=== PATIENT | male | born 1960 | race Caucasian/White ===

== ENCOUNTER 2017-04-10 11:04 | Observation (INO) ==
--- NOTE | 2017-04-10 11:29 | Emergency Department Note ---
Disposition Clinical Impression: Weakness Falls Qualifiers: Encounter type: initial encounter Qualified Code(s): W19.XXXA - Unspecified fall, initial encounter Diarrhea Qualifiers: Diarrhea type: unspecified type Qualified Code(s): R19.7 - Diarrhea, unspecified Disposition: Admitted As Inpatient Condition: Fair Referrals: Anjel Mac DO [Primary Care Provider] - Forms: ED Satisfaction Letter Time of Disposition: 12:15 Weakness HPI - General Chief complaint: ED Fall Stated complaint: Falls N/V From [facility]idency [facility] Time Seen by Provider: 04/10/17 11:15 Source: patient Limitations: no limitations Nursing Notes Reviewed: Yes Vital Signs Reviewed: Yes - History of Present Illness HPI Narrative: Patient thinks he had a stroke approximately 2 weeks ago. He fell and then woke up with increasing leg weakness and slurred speech. He has a remote history of a stroke in August 2016 with residual baseline left-sided hemianopsia and left-sided hearing deficit. He states he has fallen from his chair twice since the initial fall. He injured his right knee and right great toe. Today he was sent from the residency clinic due to decreased ability to function at home. The patient states he has had diarrhea for 2-1/2 weeks. He complains of generalized mild abdominal pain and nausea. He is unable to cook, clean, bathe or perform other ADLs Pt Subjective Complaint: generalized weakness/fatigue, difficulty ambulating Onset (ago): week(s) Duration: constant Location: LLE, RLE Migration: none Pain Scale: 10 Improves with: movement, exertion Worsens with: none Associated symptoms: Reports: nausea/vomiting, other (abd pain) - Related Data Home Medications Medication Instructions Recorded Confirmed Alfuzosin HCl [Uroxatral] 10 mg PO DAILY 11/04/15 11/04/15 Amitriptyline [Elavil] 50 mg PO HS 11/04/15 11/04/15 Ascorbate Calcium [Vitamin C] 500 mg PO DAILY 11/04/15 11/04/15 Aspirin/Calcium Carbonate/Mag 325 mg PO DAILY 11/04/15 11/04/15 [Aspirin Buffered 325 mg Tab] Calcium Carbonate/Vitamin D3 1 each PO DAILY 11/04/15 11/04/15 [Calcium 500-Vit D3 400 Tablet] Docusate [Colace] 200 mg PO DAILY 11/04/15 11/04/15 Ferrous Sulfate 325 mg PO DAILY 11/04/15 11/04/15 Folic Acid 1 mg PO DAILY 11/04/15 11/04/15 Gabapentin [Neurontin] 600 mg PO TID 11/04/15 11/04/15 Magnesium Oxide [Magnesium] 400 mg PO DAILY 11/04/15 11/04/15 Melatonin 9 mg PO HS 11/04/15 11/04/15 Naproxen [Naprosyn] 500 mg PO BID 11/04/15 11/04/15 Nicotine Patch [Nicoderm] 14 mg TD DAILY PRN 11/04/15 11/04/15 Nicotine Polacrilex [Nicorette] 4 mg BC Q6H 11/04/15 11/04/15 Omeprazole [PriLOSEC] 40 mg PO DAILY 11/04/15 11/04/15 Ondansetron HCl [Zofran] 4 mg PO BID PRN 11/04/15 11/04/15 OxyCODONE/APAP 10/325 [Percocet 1 each PO Q6HR PRN 11/04/15 11/04/15 10/325 MG] Thiamine (B-1) [Vitamin B-1] 100 mg PO DAILY 11/04/15 11/04/15 Previous Rx's Medication Instructions Recorded HYDROcodone/Acet 5/325 mg [[place] 2 tab PO Q4H PRN #20 tablet 11/04/15 5-325 mg] Ondansetron ODT [Zofran ODT] 4 mg SL Q6HR #10 tab.rapdis 03/31/17 Allergies Allergy/AdvReac Type Severity Reaction Status Date / Time No Known Allergies Allergy Verified 04/10/17 11:07 All systems ED: reviewed and negative except as stated. Constitutional: Reports: weakness Eyes: Reports: as per HPI ENT ED: Reports: as per HPI Cardiovascular: Reports: as per HPI Respiratory: Reports: as per HPI Gastrointestinal: Reports: abdominal pain, nausea, diarrhea Genitourinary: Reports: as per HPI Musculoskeletal: Reports: as per HPI Integumentary: Reports: as per HPI Neurological: Reports: weakness, other (Fall, dysarthria) Psychiatric: Reports: as per HPI Endocrine: Reports: as per HPI Hematological/Lymphatic: Reports: as per HPI Allergic/Immunologic: Reports: as per HPI Past Medical History - Past Medical History Source: patient Medical history: Reports: asthma, GERD, pulmonary embolus, RA, other Surgical history: Reports: other Psychiatric history: Reports: anxiety, depression - Social History Smoking Status: Current every day smoker Smokeless Tobacco Status: No Alcohol use: Reports: occasionally Drug use: Reports: marijuana Physical Exam - General Limitations: no limitations General appearance: alert - Head Head exam: atraumatic - Eye Eye exam: Present: normal appearance, PERRL - ENT ENT exam: normal exam - Neck Neck exam: Present: normal inspection, full ROM - Chest Chest inspection: Present: normal inspection, symmetric chest wall rise - Respiratory Respiratory exam: Present: other (Mild diffuse expiratory rhonchi) - Cardiovascular Cardiovascular exam: Present: regular rate, normal rhythm, normal heart sounds - Abdominal Exam Abdominal exam: Present: soft, tenderness (Mild diffusely without guarding or rebound), normal bowel sounds - Rectal Exam Rectal exam: Present: deferred - Extremities Exam Extremities exam: Present: normal inspection - Neurological Exam Neurological exam: Present: alert, oriented X3, CN II-XII intact, other (No facial asymmetry. Tongue midline. Speech mildly dysarthric. No pronator drift. Equal and full strength in the upper extremities. Patient only able to hold his legs off the bed versus gravity for 1-2 seconds bilaterally) - Psychiatric Psychiatric exam: Present: normal affect, normal mood - Skin Skin exam: Present: warm, dry, intact Course Course Narrative: Patient presents with progressive debility after a fall 2 weeks ago. He also complains of diarrhea and nausea. He was sent from the residency clinic with concern for his inability to care for himself at home. Workup including CT head and labs initiated. - Reevaluation(s) Reevaluation #1: Tests results discussed with patient. donor services technician unable to place to an extended care facility due to insurance reasons. I will request admission to the hospitalist service - Consultations Consultation #1: donor services technician consulted Vital Signs Temperature 98.2 F 04/10/17 11:07 Pulse Rate 95 04/10/17 11:07 Respiratory Rate 20 04/10/17 11:07 Blood Pressure 152/87 04/10/17 11:07 O2 Sat by Pulse Oximetry 100 04/10/17 11:07 Temperature 98.2 F 04/10/17 11:07 Pulse Rate 93 04/10/17 12:00 Respiratory Rate 18 04/10/17 12:00 Blood Pressure 149/93 04/10/17 12:00 O2 Sat by Pulse Oximetry 99 04/10/17 12:00 Oxygen Delivery Oxygen Delivery Room Air Weakness - Medical Records Medical records reviewed: Yes I reviewed the patient's medical records. C. difficile toxin negative on 03/31/2017 per my review of records - Lab Data Lab results reviewed: Yes I reviewed the patient's lab results. Result diagrams: 04/10/17 11:39 04/10/17 11:39 Lab Results 04/10/17 04/10/17 04/10/17 Range/Units 11:28 11:39 11:39 WBC 6.1 (4.3-11.1) K/mcL RBC 4.04 L (4.19-5.50) M/mcL Hgb 14.5 (12.9-16.9) g/dL Hct 41.3 (37.5-50.1) % MCV 102.2 H (83.0-100.0) fL MCH 35.9 H (28.0-33.3) pg MCHC 35.1 (31.6-35.5) g/dL RDW 16.3 H (11.5-14.5) % Plt Count 206 (140-400) K/mcL MPV 10.5 (9.4-12.4) fL Immature Gran % 0.5 (0-4) % Seg Neutrophils % 69.9 % Lymphocytes % 16.6 % Monocytes % 11.5 % Eosinophils % 0.7 % Basophils % 0.8 % Neutrophils # 4.3 (1.6-8.9) K/mcL Lymphocytes # 1.0 (0.6-4.6) K/mcL Monocytes # 0.7 (0.0-1.3) K/mcL Eosinophils # 0.0 (0.0-0.6) K/mcL Basophils # 0.1 (0.0-0.2) K/mcL Sodium 133 L (136-145) mEq/L Potassium 4.3 (3.5-4.5) mEq/L Chloride 95 L (98-109) mEq/L Carbon Dioxide 25 (19-29) mEq/L BUN 13 (8-26) mg/dL Creatinine 0.83 (0.72-1.25) mg/dL Est GFR ( Amer) > 60 (> 60) Est GFR (Non-Af Amer) > 60 (> 60) BUN/Creatinine Ratio 16 (6-26) Glucose 89 (70-99) mg/dL POC Glucose 82 (58-89) Calculated Osmolality 276 L (280-300) Calcium 9.6 (8.6-10.8) mg/dL Magnesium 1.3 L (1.6-2.6) mg/dL Total Bilirubin 1.0 (0.2-1.2) mg/dL AST 97 H (5-34) Units/L ALT 100 H (0-55) Units/L Alkaline Phosphatase 123 (38-126) Units/L Troponin I (0-0.03) ng/mL Serum Total Protein 7.3 (6.0-8.3) g/dL Albumin 4.0 (3.5-5.0) g/dL Globulin 3.3 (2.4-3.5) g/dL Albumin/Globulin Ratio 1.2 (1.1-2.2) Lipase 38 (8-78) Units/L 04/10/17 Range/Units 11:39 WBC (4.3-11.1) K/mcL RBC (4.19-5.50) M/mcL Hgb (12.9-16.9) g/dL Hct (37.5-50.1) % MCV (83.0-100.0) fL MCH (28.0-33.3) pg MCHC (31.6-35.5) g/dL RDW (11.5-14.5) % Plt Count (140-400) K/mcL MPV (9.4-12.4) fL Immature Gran % (0-4) % Seg Neutrophils % % Lymphocytes % % Monocytes % % Eosinophils % % Basophils % % Neutrophils # (1.6-8.9) K/mcL Lymphocytes # (0.6-4.6) K/mcL Monocytes # (0.0-1.3) K/mcL Eosinophils # (0.0-0.6) K/mcL Basophils # (0.0-0.2) K/mcL Sodium (136-145) mEq/L Potassium (3.5-4.5) mEq/L Chloride (98-109) mEq/L Carbon Dioxide (19-29) mEq/L BUN (8-26) mg/dL Creatinine (0.72-1.25) mg/dL Est GFR ( Amer) (> 60) Est GFR (Non-Af Amer) (> 60) BUN/Creatinine Ratio (6-26) Glucose (70-99) mg/dL POC Glucose (58-89) Calculated Osmolality (280-300) Calcium (8.6-10.8) mg/dL Magnesium (1.6-2.6) mg/dL Total Bilirubin (0.2-1.2) mg/dL AST (5-34) Units/L ALT (0-55) Units/L Alkaline Phosphatase (38-126) Units/L Troponin I 0.01 (0-0.03) ng/mL Serum Total Protein (6.0-8.3) g/dL Albumin (3.5-5.0) g/dL Globulin (2.4-3.5) g/dL Albumin/Globulin Ratio (1.1-2.2) Lipase (8-78) Units/L - Radiology Data Radiology results reviewed: Yes I reviewed the patient's radiology results. - EKG Data EKG attestation: Yes I reviewed and interpreted this EKG. EKG results narrative: Normal sinus rhythm with supraventricular complexes rate 99 WI 138 QRS 98 QT/ QTC 355/411. No acute ST segment elevation
[2017-04-10 11:49] LABS: Basophils # 0.1 K/mcL (0.0-0.2); Basophils % 0.8 %; Eosinophils % 0.7 %; Hematocrit 41.3 % (37.5-50.1); Hemoglobin 14.5 g/dL (12.9-16.9); Immature Granulocytes % 0.5 % (0-4); Lymphocytes % 16.6 %; Mean Corpuscular HGB Conc 35.1 g/dL (31.6-35.5); Mean Corpuscular Hemoglobin 35.9 pg (28.0-33.3); Mean Corpuscular Volume 102.2 fL (83.0-100.0); Mean Platelet Volume 10.5 fL (9.4-12.4); Monocytes # 0.7 K/mcL (0.0-1.3); Monocytes % 11.5 %; Neutrophils # 4.3 K/mcL (1.6-8.9); Platelet Count 206 K/mcL (140-400); Red Blood Count 4.04 M/mcL (4.19-5.50); Red Cell Distribution Width 16.3 % (11.5-14.5); Segmented Neutrophils % 69.9 %
[2017-04-10 12:09] LABS: Alanine Aminotransferase 100 Units/L (0-55); Albumin/Globulin Ratio 1.2 (1.1-2.2); Alkaline Phosphatase 123 Units/L (38-126); Aspartate Amino Transferase 97 Units/L (5-34); BUN/Creatinine Ratio 16 (6-26); Blood Urea Nitrogen 13 mg/dL (8-26); Calcium 9.6 mg/dL (8.6-10.8); Carbon Dioxide 25 mEq/L (19-29); Chloride 95 mEq/L (98-109); Globulin 3.3 g/dL (2.4-3.5); Glucose 89 mg/dL (70-99); Lipase 38 Units/L (8-78); Magnesium 1.3 mg/dL (1.6-2.6); Osmolality,Calculated 276 (280-300); Potassium 4.3 mEq/L (3.5-4.5); Sodium 133 mEq/L (136-145); Total Protein 7.3 g/dL (6.0-8.3); eGFR For African Americans > 60 (> 60); eGFR For Non-African Americans > 60 (> 60)
[2017-04-10] MEDS ORDERED: *HR* Morphine 2 MG/ML SYRINGE IVP ONE (12:12)
[2017-04-10] MEDS ORDERED: Ondansetron 4 MG/2 ML VIAL IVP ONE (12:12)
[2017-04-10] MEDS ORDERED: Ondansetron ODT 4 MG TAB.RAPDIS SL PRN (13:03)
[2017-04-10] MEDS ORDERED: Naloxone 0.4 MG/ML INJ IVP PRN (13:03)
[2017-04-10] MEDS ORDERED: Acetaminophen 325 MG TABLET PO PRN (13:03)
[2017-04-10] MEDS ORDERED: Magnesium Sulfate 2 GM in D5% in Water 100 ML IVPB ONE (13:13)
--- NOTE | 2017-04-10 14:32 | Internal Med History&Physical ---
Date of Encounter: 04/11/17 Time of Encounter: 14:23 Assessment and Plan (1) Weakness Current visit: Yes Status: Acute Patient reports generalized weakness for the last 2-1/2 weeks, accompanied by nausea, vomiting, diarrhea. Weakness may be related to poor oral intake, and viral gastroenteritis. However patient does have a history of CVA in August with residual visual and hearing disturbance, along with risk factors of hypertension, hyperlipidemia, and smoking. CT of the head was negative for acute abnormality MRI of the brain and head was ordered Fall precautions Social work consult for discharge planning PT and OT ordered (2) Diarrhea Current visit: Yes Status: Acute Patient reports diarrhea for the last 2-1/2 weeks, along with poor appetite, nausea and vomiting. Fecal GI panel and white blood cells ordered IV fluids 0.9 normal saline at 100 mL per hour Regular diet as tolerated. Qualifiers: Diarrhea type: unspecified type Qualified Code(s): R19.7 - Diarrhea, unspecified (3) Nausea & vomiting Current visit: Yes Status: Acute Patient reports nausea and vomiting over the last 2-1/2 weeks. He has a poor appetite as well as diarrhea. Diffuse mild abdominal tenderness on exam. KUB x-ray ordered Zofran when necessary for nausea IV fluids 0.9 normal saline at 100 mL per hour Regular diet as tolerated Qualifiers: Vomiting type: bilious vomiting Qualified Code(s): R11.14 - Bilious vomiting (4) Hypomagnesemia Current visit: Yes Status: Acute Magnesium of 1.3. 2 g magnesium IV piggyback Recheck magnesium with morning labs (5) Elevated LFTs Current visit: Yes Status: Acute AST and ALT are mildly elevated. Patient reports occasional alcohol use with last use reportedly 3 weeks ago. Recheck LFTs with morning labs. (6) Smoker Current visit: Yes Status: Acute Discussed smoking cessation, patient not ready to quit at this time. Smoking cessation education ordered, nicotine patch ordered. (7) DVT prophylaxis Current visit: Yes Status: Acute Antiembolic stockings Lovenox 40 mg subcutaneous daily Internal Medicine - H&P: HPI Chief complaint: weakness, N/V/D Admitted From: Emergency Dept Plans for Post Hospital Care: Transfer [facility] [employer] Care History of present illness: Mr. Porter is a 57 year old male with COPD, hypertension, hyperlipidemia, history of CVA in August with residual left-sided visual changes and left- sided hearing loss, presents to emergency room today with complaints of 2-2-1/2 week history of generalized weakness, falls, nausea, vomiting, abdominal pain and diarrhea. Patient reports that about 2 and half weeks ago he suffered a fall, felt like maybe he had a stroke, as he was generalized weak. He has had trouble since then with diarrhea, nausea, vomiting, has not had much of an appetite, has been too weak to take care of himself including bathing, and fixing meals. He also endorses headache, occasional shortness of breath occasional chest pain, numbness and tingling in bilateral feet, subjective fever , chills, and congestion. He denies any coughing, or lightheadedness. Evaluation in the emergency department included a CT of the head which showed no acute intracranial abnormality. He was afebrile, his white blood cell count was normal at 6.1. Magnesium was low at 1.3. Sodium was mildly low at 133. Troponin was normal at 0.01. Chest x-ray showed no acute cardiopulmonary process. On exam, patient was alert and oriented, in no acute distress. Strength was equal bilaterally though reduced in bilateral upper and lower extremities. Clear bilaterally to auscultation, heart had regular rate and rhythm. Abdomen is diffusely mildly tender, he does have positive bowel sounds. Past Med Surg Social Fam HX - Past Medical History Medical history: asthma, COPD, CVA, GERD, hyperlipidemia, hypertension, pulmonary embolus, RA, other Psychiatric history: anxiety, depression - Past Surgical History Surgical History: hip replacement, orthopedic, other (foot x 3, back), other - Social History Smoking Status: Current every day smoker Packs per day: 1 Smokeless Tobacco Status: No Alcohol use: occasionally Drug use: marijuana - Family History Mother Living Status: Still Living Hx Family Cardiac Disorders: Yes Father Living Status: Age at : 76 Cause of : Cancer Hx Family Cardiac Disorders: Yes Hx Family Cancer: Yes Internal Medicine - H&P: Meds Ferrous Sulfate 325 mg PO DAILY 11/04/15 [History] Ondansetron ODT [Zofran ODT] 4 mg SL Q6HR #10 tab.rapdis 03/31/17 [Rx] Aspirin 81 mg PO DAILY 04/10/17 [History] Atorvastatin Calcium [Lipitor] 20 mg PO DAILY 04/10/17 [History] Esomeprazole Magnesium [Nexium] 20 mg PO DAILY 04/10/17 [History] Lisinopril [Zestril] 10 mg PO DAILY 04/10/17 [History] Allergies No Known Allergies Allergy (Verified 04/10/17 11:07) All Systems PM: A 10-system review of systems was performed and is negative for pertinent findings except as documented above in the HPI. - Constitutional Constitutional: chills, fever(s), falls, lethargy, weakness, weight loss, no night sweats - EENT Eyes: no change in vision (reports loss of partial left sided vision in August ), no discharge, no pain, no photophobia Ears: no ear discharge, no ear pain, no tinnitus Nose, mouth and throat: nasal congestion, no dysphagia, no nasal discharge, no neck pain, no sore throat - Cardiovascular Cardiovascular ROS IM: chest pain, dyspnea, no diaphoresis, no lightheadedness, no palpitations, no syncope - Respiratory Respiratory: dyspnea, no cough, no wheezing, no excessive phlegm production - Gastrointestinal Gastrointestinal: abdominal pain, diarrhea, nausea, vomiting, no hematemesis, no hematochezia, no melena - Musculoskeletal Musculoskeletal ROS IM: numbness (bilateral feet), tingling - Integumentary Integumentary IM: no rash, no unusual bruising - Neurological Neurological ROS: numbness (bilateral feet), tingling, no confusion, no convulsions, no focal weakness, no tremor(s) - Hematologic/Lymphatic Hematologic/Lymphatic: no easy bruising - Constitutional Vitals: Temp Pulse Resp BP Pulse Ox 97.9 F 85 16 157/86 96 04/10/17 13:54 04/10/17 13:54 04/10/17 13:54 04/10/17 13:54 04/10/17 13:54 General appearance: Present: A&O X 3, pleasant, no acute distress - Head Head exam: Present: atraumatic, normocephalic - Eye Eye exam: Present: PERRL, conjuntiva pink, sclera anicteric Pupils: Present: PERRL - Neck Neck exam general surgery: Present: supple, trachea midline. Absent: lymphadenopathy - Respiratory Respiratory exam: Present: CTAB. Absent: accessory muscle use, rales, rhonchi, wheezes - Cardiovascular Cardiovascular exam: Present: RRR, +S1, +S2. Absent: diastolic murmur, gallop, rubs, systolic murmur - GI/Abdominal GI/Abdominal exam: Present: normal bowel sounds, soft, tenderness, no peritoneal signs. Absent: distended - Extremities Exam Extremities exam: Present: warm, radial pulses palpable and symetrical. Absent : calf tenderness, cyanotic, pedal edema - Neurological Exam Neurological exam: Present: CN II-XII intact, oriented X3, no focal deficits. Absent: pronater drift, facial droop, speech deficit - Skin Skin exam: Present: dry, intact Internal Med - H&P Results - Labs CBC & Chem 7: 04/10/17 11:39 04/10/17 11:39 Labs: All Lab Results (24 Hours) 04/10/17 04/10/17 04/10/17 Range/Units 11:28 11:39 11:39 WBC 6.1 (4.3-11.1) K/mcL RBC 4.04 L (4.19-5.50) M/mcL Hgb 14.5 (12.9-16.9) g/dL Hct 41.3 (37.5-50.1) % MCV 102.2 H (83.0-100.0) fL MCH 35.9 H (28.0-33.3) pg MCHC 35.1 (31.6-35.5) g/dL RDW 16.3 H (11.5-14.5) % Plt Count 206 (140-400) K/mcL MPV 10.5 (9.4-12.4) fL Immature Gran % 0.5 (0-4) % Seg Neutrophils % 69.9 % Lymphocytes % 16.6 % Monocytes % 11.5 % Eosinophils % 0.7 % Basophils % 0.8 % Neutrophils # 4.3 (1.6-8.9) K/mcL Lymphocytes # 1.0 (0.6-4.6) K/mcL Monocytes # 0.7 (0.0-1.3) K/mcL Eosinophils # 0.0 (0.0-0.6) K/mcL Basophils # 0.1 (0.0-0.2) K/mcL Sodium 133 L (136-145) mEq/L Potassium 4.3 (3.5-4.5) mEq/L Chloride 95 L (98-109) mEq/L Carbon Dioxide 25 (19-29) mEq/L BUN 13 (8-26) mg/dL Creatinine 0.83 (0.72-1.25) mg/dL Est GFR ( Amer) > 60 (> 60) Est GFR (Non-Af Amer) > 60 (> 60) BUN/Creatinine Ratio 16 (6-26) Glucose 89 (70-99) mg/dL POC Glucose 82 (58-89) Calculated Osmolality 276 L (280-300) Calcium 9.6 (8.6-10.8) mg/dL Magnesium 1.3 L (1.6-2.6) mg/dL Total Bilirubin 1.0 (0.2-1.2) mg/dL AST 97 H (5-34) Units/L ALT 100 H (0-55) Units/L Alkaline Phosphatase 123 (38-126) Units/L Troponin I (0-0.03) ng/mL Serum Total Protein 7.3 (6.0-8.3) g/dL Albumin 4.0 (3.5-5.0) g/dL Globulin 3.3 (2.4-3.5) g/dL Albumin/Globulin Ratio 1.2 (1.1-2.2) Lipase 38 (8-78) Units/L 04/10/17 Range/Units 11:39 WBC (4.3-11.1) K/mcL RBC (4.19-5.50) M/mcL Hgb (12.9-16.9) g/dL Hct (37.5-50.1) % MCV (83.0-100.0) fL MCH (28.0-33.3) pg MCHC (31.6-35.5) g/dL RDW (11.5-14.5) % Plt Count (140-400) K/mcL MPV (9.4-12.4) fL Immature Gran % (0-4) % Seg Neutrophils % % Lymphocytes % % Monocytes % % Eosinophils % % Basophils % % Neutrophils # (1.6-8.9) K/mcL Lymphocytes # (0.6-4.6) K/mcL Monocytes # (0.0-1.3) K/mcL Eosinophils # (0.0-0.6) K/mcL Basophils # (0.0-0.2) K/mcL Sodium (136-145) mEq/L Potassium (3.5-4.5) mEq/L Chloride (98-109) mEq/L Carbon Dioxide (19-29) mEq/L BUN (8-26) mg/dL Creatinine (0.72-1.25) mg/dL Est GFR ( Amer) (> 60) Est GFR (Non-Af Amer) (> 60) BUN/Creatinine Ratio (6-26) Glucose (70-99) mg/dL POC Glucose (58-89) Calculated Osmolality (280-300) Calcium (8.6-10.8) mg/dL Magnesium (1.6-2.6) mg/dL Total Bilirubin (0.2-1.2) mg/dL AST (5-34) Units/L ALT (0-55) Units/L Alkaline Phosphatase (38-126) Units/L Troponin I 0.01 (0-0.03) ng/mL Serum Total Protein (6.0-8.3) g/dL Albumin (3.5-5.0) g/dL Globulin (2.4-3.5) g/dL Albumin/Globulin Ratio (1.1-2.2) Lipase (8-78) Units/L - Diagnostic Studies CT scan - head Additional comments: Head CT 04/10/17 11:24 IMPRESSION: No acute intracranial abnormality. D/ / Marques Mckeon MD / Marques Mckeon MD Interpreting Provider: Marques Mckeon MD Chest x-ray Additional comments: Chest X-Ray 04/10/17 11:24 IMPRESSION: No acute cardiopulmonary process. D/ / 04/10/2017 12:08:43 Karlos العلي MD / [email or web address] Interpreting Provider: Karlos العلي MD
--- NOTE | 2017-04-10 16:40 | Electrocardiograph Report ---
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
[2017-04-10] MEDS: 0.9 % Sodium Chloride 1,000 ML IVC SCH ×2 (17:34→23:23)
[2017-04-10] MEDS: *HR* Morphine 2 MG/ML SYRINGE IVP PRN ×2 (17:36→21:24)
[2017-04-10] MEDS: Nicotine 21 MG PATCH.TD24 TD SCH (17:36)
[2017-04-10 19:31] LABS: Bilirubin,Urine Large (Negative); Blood,Urine Negative (Negative); Clarity,Urine Cloudy (Clear); Color,Urine Orange (Yellow); Glucose,Urine (UA) Normal (Normal); Ketones,Urine 40 mg/dL (Negative); Leukocyte Esterase,Urine Trace (Negative); Nitrite,Urine Negative (Negative); Protein,Urine Trace mg/dL (Neg-Trace); Specific Gravity,Urine 1.028 (1.010-1.025)
[2017-04-10 19:33] LABS: Bacteria,Urine None Seen per hpf (None-Few); Hyaline Casts,Urine None Seen per lpf (None-Few); RBC,Urine 0-3 per hpf (0-3); Squamous Epithelial Cell,Urine Moderate per lpf (None-Few); WBC,Urine 0-3 per hpf (0-3)
[2017-04-11] MEDS: *HR* Morphine 2 MG/ML SYRINGE IVP PRN ×2 (03:22→08:43)
[2017-04-11 03:57] LABS: Adenovirus F 40/41 PCR Not detected (Not detect); Astrovirus PCR Not detected (Not detect); C.difficile Toxin A/B by PCR Not detected (Not detect); Campylobacter by PCR Not detected (Not detect); Cryptosporidium by PCR Not detected (Not detect); Cyclospora cayetanensis PCR Not detected (Not detect); E. coli O157 by PCR Not detected (Not detect); Entamoeba histolytica PCR Not detected (Not detect); Enteroaggregative E.coli(EAEC) Not detected (Not detect); Enteropathogenic E.coli(EPEC) Not detected (Not detect); Enterotoxigenic E.coli (ETEC) Not detected (Not detect); Giardia lamblia PCR Not detected (Not detect); Norovirus GI/GII PCR Not detected (Not detect); Plesiomonas shigelloides PCR Not detected (Not detect); Rotavirus A PCR Not detected (Not detect); Salmonella PCR Not detected (Not detect); Sapovirus PCR Not detected (Not detect); Shig/EnteroinvasiveE coli EIEC Not detected (Not detect); Shigalike tox-prod E coli STEC Not detected (Not detect); Vibrio PCR Not detected (Not detect); Vibrio cholerae PCR Not detected (Not detect); Yersinia enterocolitica PCR Not detected (Not detect)
[2017-04-11] MEDS: *HR* Enoxaparin 40 MG/0.4 ML SYRINGE SQ SCH (06:04)
[2017-04-11 06:12] LABS: Basophils # 0.1 K/mcL (0.0-0.2); Basophils % 0.9 %; Eosinophils # 0.1 K/mcL (0.0-0.6); Hematocrit 36.2 % (37.5-50.1); Hemoglobin 12.5 g/dL (12.9-16.9); Immature Granulocytes % 1.1 % (0-4); Lymphocytes # 1.9 K/mcL (0.6-4.6); Lymphocytes % 27.9 %; Mean Corpuscular HGB Conc 34.5 g/dL (31.6-35.5); Mean Corpuscular Hemoglobin 35.3 pg (28.0-33.3); Mean Corpuscular Volume 102.3 fL (83.0-100.0); Monocytes # 0.8 K/mcL (0.0-1.3); Monocytes % 11.9 %; Neutrophils # 3.7 K/mcL (1.6-8.9); Platelet Count 179 K/mcL (140-400); Red Blood Count 3.54 M/mcL (4.19-5.50); Red Cell Distribution Width 16.1 % (11.5-14.5); Segmented Neutrophils % 56.2 %
[2017-04-11 06:25] LABS: BUN/Creatinine Ratio 17 (6-26); Blood Urea Nitrogen 13 mg/dL (8-26); Calcium 8.3 mg/dL (8.6-10.8); Carbon Dioxide 26 mEq/L (19-29); Chloride 98 mEq/L (98-109); Glucose 94 mg/dL (70-99); Magnesium 1.4 mg/dL (1.6-2.6); Osmolality,Calculated 272 (280-300); Potassium 3.5 mEq/L (3.5-4.5); Sodium 131 mEq/L (136-145); eGFR For African Americans > 60 (> 60); eGFR For Non-African Americans > 60 (> 60)
[2017-04-11 06:28] LABS: Albumin/Globulin Ratio 1.1 (1.1-2.2); Bilirubin,Direct 0.3 mg/dL (0.0-0.5); Bilirubin,Indirect 0.2 mg/dL (0.0-1.2); Bilirubin,Total 0.5 mg/dL (0.2-1.2); Chol/HDL Ratio 2.4 (0-4.9); Globulin 2.7 g/dL (2.4-3.5)
[2017-04-11 06:29] LABS: Albumin 3.1 g/dL (3.5-5.0); Total Protein 5.8 g/dL (6.0-8.3)
[2017-04-11] MEDS: Aspirin 81 MG TAB.CHEW PO SCH (08:43)
[2017-04-11] MEDS: Nicotine 21 MG PATCH.TD24 TD SCH (08:44)
[2017-04-11] MEDS: *HR* HYDROcodone/Acet 5/325 mg TABLET PO PRN ×2 (14:06→20:18)
--- NOTE | 2017-04-11 18:16 | Internal Med Progress Note ---
Date of Encounter: 04/11/17 Time of Encounter: 10:30 - Assessment and plan (1) Weakness Current Visit: Yes Status: Acute Assessment and plan: Likely secondary to dehydration. Patient had nausea, vomiting, diarrhea for 2-1 /2 weeks prior to presentation. He is now taking by mouth and is feeling better. Awaiting OT and PT consultations. Chest x-ray negative. Head CT negative. KUB negative. Urinalysis negative. GI panel negative, lactoferrin positive. MRI revealing remote CVAs and and venous malformation. Neurology has been brought on board, appreciate their recommendations. ITS Impressions Chest X-Ray 04/10/17 11:24 IMPRESSION: No acute cardiopulmonary process. D/ / 04/10/2017 12:08:43 Karlos العلي MD / rubi Interpreting Provider: Karlos العلي MD Head CT 04/10/17 11:24 IMPRESSION: No acute intracranial abnormality. D/ / Marques Mckeon MD / Marques Mckeon MD Interpreting Provider: Marques Mckeon MD X-Ray 04/10/17 13:06 IMPRESSION: Nonspecific bowel gas pattern with air-filled loops of small bowel and colon throughout the abdomen. D/ / Rico Rivas MD / Rico Rivas MD Interpreting Provider: Rico Rivas MD Brain MRI 04/10/17 13:08 IMPRESSION: There are no areas of restricted diffusion to suggest an acute ischemic event. There is a remote right occipital lobe infarct and remote lacunar infarcts in the basal ganglia and left thalamus. Moderate to severe chronic small vessel ischemic changes. Suspected venous malformation near the left lateral ventricle in the frontal lobe. Postcontrast images of the brain are suggested to further evaluate. D/ / 04/10/2017 17:05:13 Dot Santos MD / rubi Interpreting Provider: Dot Santos MD (2) Falls Current Visit: Yes Status: Acute Qualifiers: Encounter type: initial encounter Qualified Code(s): W19.XXXA - Unspecified fall, initial encounter (3) Hyponatremia with decreased serum osmolality Current Visit: Yes Status: Chronic Assessment and plan: Acute on chronic dose slightly lower than his baseline. We will continue to trend. (4) Inflammatory bowel disease Current Visit: Yes Status: Suspected Assessment and plan: GI panel negative however fecal lactoferrin positive suggestive of inflammatory bowel disease. Patient is currently tolerating a regular diet, will have him follow up outpatient with GI. Of note, GI consultation not possible at this time due to provider unavailability. (5) Diarrhea Current Visit: Yes Status: Acute (6) Nausea & vomiting Current Visit: Yes Status: Resolved Assessment and plan: Tolerating a regular diet. Qualifiers: Vomiting type: bilious vomiting Qualified Code(s): R11.14 - Bilious vomiting (7) Hypomagnesemia Current Visit: Yes Status: Acute Assessment and plan: Improving, will continue to supplement. Potassium normal (8) Elevated LFTs Current Visit: Yes Status: Acute Assessment and plan: Mild, trending down, stable. Patient is tolerating a regular diet and denies abdominal pain at this time. (9) Smoker Current Visit: Yes Status: Chronic Assessment and plan: Declined counseling (10) DVT prophylaxis Current Visit: Yes Status: Acute Assessment and plan: Subcutaneous Lovenox - Subjective Interval history: Patient seen and examined. On examination, patient sitting upright on the side of his bed shaving at this time. He complains of chronic back pain but overall , he states he is feeling better. He is endorsing a normal appetite this time. - Constitutional Vitals: Temp Pulse Resp BP Pulse Ox 98.1 F 76 16 92/62 96 04/11/17 15:33 04/11/17 15:33 04/11/17 15:33 04/11/17 15:33 04/11/17 15:33 General appearance: Present: A&O X 3, pleasant, no acute distress, answers questions appropriately - Head Head exam: Present: atraumatic, normocephalic - Eye Eye exam: Present: PERRL, conjuntiva pink, sclera anicteric Pupils: Present: PERRL - Neck Neck exam general surgery: Present: supple, trachea midline. Absent: lymphadenopathy - Respiratory Respiratory exam: Present: decreased breath sounds. Absent: accessory muscle use, rales, respiratory distress, rhonchi, wheezes - Cardiovascular Cardiovascular exam: Present: RRR, +S1, +S2. Absent: diastolic murmur, gallop, rubs, systolic murmur - GI/Abdominal GI/Abdominal exam: Present: normal bowel sounds, soft, no peritoneal signs. Absent: distended, tenderness - Extremities Exam Extremities exam: Present: warm, radial pulses palpable and symetrical. Absent : calf tenderness, cyanotic, pedal edema - Neurological Exam Neurological exam: Present: alert, CN II-XII intact, oriented X3, no focal deficits, strengths equal and symetr throughout. Absent: pronater drift, facial droop, speech deficit - Skin Skin exam: Present: dry, intact, normal color, warm Internal Medicine: Result - Labs CBC & Chem 7: 04/11/17 05:18 04/11/17 05:18 Labs: Short CBC 04/11/17 Range/Units 05:18 WBC 6.6 (4.3-11.1) K/mcL Hgb 12.5 L D (12.9-16.9) g/dL Hct 36.2 L (37.5-50.1) % Plt Count 179 (140-400) K/mcL Neutrophils # 3.7 (1.6-8.9) K/mcL BMP 04/11/17 05:18 Sodium 131 L Potassium 3.5 Chloride 98 Carbon Dioxide 26 BUN 13 Creatinine 0.76 Glucose 94 Calcium 8.3 L Liver Function 04/11/17 Range/Units 05:18 Total Bilirubin 0.5 (0.2-1.2) mg/dL Direct Bilirubin 0.3 (0.0-0.5) mg/dL AST 81 H (5-34) Units/L ALT 78 H (0-55) Units/L Alkaline Phosphatase 102 (38-126) Units/L Albumin 3.1 L D (3.5-5.0) g/dL Urine 04/10/17 Range/Units 19:20 Urine Color [place] A (Yellow) Urine Clarity Cloudy A (Clear) Urine pH 6.0 (5.0-8.0) pH Units Ur Specific [place] 1.028 H (1.010-1.025) Urine Protein Trace (Neg-Trace) mg/dL Urine Glucose (UA) Normal (Normal) mg/dL - Impressions Impressions Brain MRI 04/10/17 13:08 IMPRESSION: There are no areas of restricted diffusion to suggest an acute ischemic event. There is a remote right occipital lobe infarct and remote lacunar infarcts in the basal ganglia and left thalamus. Moderate to severe chronic small vessel ischemic changes. Suspected venous malformation near the left lateral ventricle in the frontal lobe. Postcontrast images of the brain are suggested to further evaluate. D/ / 04/10/2017 17:05:13 [facility] Provider: Dot Santos MD Consult Discharge Plan - Plan Referrals: Anjel Mac DO [Primary Care Provider] -
--- NOTE | 2017-04-11 18:52 | Neurology - Consult Note ---
Date of Encounter: 04/11/17 Time of Encounter: 18:50 Assessment and Plan (1) Venous angioma of brain Current Visit: Yes Status: Acute This is likely an incidental finding. Venous angioma usually are asymptomatic and is of low pressure symptoms and has low tendency to cause cerebral bleed. Best examined with MRI with contrast. Likely require no intervention. Not related to his current symptoms. History of Present Illness Chief complaint: weakness HPI: Mr. Porter is a 57 year old male with PMH significant for recent right occipital infarct, who developed acute onset of weakness, passing out and shakiness. Initially admitted to evaluate for a possible stroke. Patient is a and usually get medical care through CT. Last August/2016 he developed balance difficulty and lost his vision to one side and he went to ER of OSH but he was not checked for stroke but was discharged. He then saw eye doctor who did eye examination and suggested he gets an MRI of brain which revealed infarct at the right occipital region Yesterday morning, he was at home and started having some shakes, felt weak and then passed out. he thought he had a stroke and then went to ER. MRI of brain however, showed no acute infarct, but some chronic white matter signal changes and also possible venous angioma at the left frontal region and Radiology recommended MRI of brain with contrast. Patient currently feeling better and he has no focal weakness. Still feels weak though. No speech difficulty Past Med Surg Social Fam HX - Past Medical History Medical history: asthma, COPD, CVA, GERD, hyperlipidemia, hypertension, pulmonary embolus, RA, other Psychiatric history: anxiety, depression - Past Surgical History Surgical History: hip replacement, orthopedic, other (foot x 3, back), other - Social History Smoking Status: Current every day smoker Packs per day: 1 Smokeless Tobacco Status: No Alcohol use: occasionally Drug use: marijuana - Family History Mother Living Status: Still Living Hx Family Cardiac Disorders: Yes Father Living Status: Age at : 76 Cause of : Cancer Hx Family Cardiac Disorders: Yes Hx Family Cancer: Yes Medications and Allergies Ferrous Sulfate 325 mg PO DAILY 11/04/15 [History] Ondansetron ODT [Zofran ODT] 4 mg SL Q6HR #10 tab.rapdis 03/31/17 [Rx] Aspirin 81 mg PO DAILY 04/10/17 [History] Atorvastatin Calcium [Lipitor] 20 mg PO DAILY 04/10/17 [History] Esomeprazole Magnesium [Nexium] 20 mg PO DAILY 04/10/17 [History] Lisinopril [Zestril] 10 mg PO DAILY 04/10/17 [History] Allergies No Known Allergies Allergy (Verified 04/10/17 11:07) All Systems: A 10-system review of systems was performed and is negative for pertinent findings except as documented above in the HPI. Physical Examination - Vital Signs Vital Signs: Initial Vital Signs Temp Pulse Resp BP Pulse Ox 98.2 F 95 20 152/87 100 04/10/17 11:07 04/10/17 11:07 04/10/17 11:07 04/10/17 11:07 04/10/17 11:07 - Constitutional General appearance: comfortable - Neurologic Sensorimotor examination: other (Grossly intact) Detailed motor examination: grossly full strength in all extremities Motor examination - right side: 5/5: deltoids, biceps, triceps, wrist flexion, wrist extension, telegraph plant maintainer, hip flexors, tibialis Anterior, quadriceps, toe extension (EHL), plantarflexion (uable to assess due to pain on palpation) Motor examination - left side: 5/5: deltoids, biceps, triceps, wrist flexion, wrist extension, hip flexors, telegraph plant maintainer, quadriceps, tibialis Anterior, toe extension (EHL), plantarflexion (Severe allodynia on palpation of the foot) Detailed sensory examination: other (Grossly intact) Posture: other (None) Reflex and gait examination: intact Mental Status Examination: awake, alert, oriented to person, oriented to place, oriented to time, follows commands appropriately, answers questions appropriately, no agnosia, no aphasia, no aproxia Cranial nerve examination: PERRL, EOMI, visual martinez intact, corneal reflexes brisk symmetrically, sensory to face intact, mastication intact, no facial asymmetry is present, no dysarthria, hearing is intact symmetrically, soft palate elevates bilaterally upon phonation, gag reflex intact, flexes SCM and trapezius muscles symmetrically with full power, tongue protrudes midline, no atrophy or facial fasiculations present Results - Laboratory Findings CBC and BMP: 04/11/17 05:18 04/11/17 05:18 Abnormal lab findings: Abnormal lab results RBC 3.54 M/mcL (4.19-5.50) L 04/11/17 05:18 Hgb 12.5 g/dL (12.9-16.9) L D 04/11/17 05:18 Hct 36.2 % (37.5-50.1) L 04/11/17 05:18 MCV 102.3 fL (83.0-100.0) H 04/11/17 05:18 MCH 35.3 pg (28.0-33.3) H 04/11/17 05:18 RDW 16.1 % (11.5-14.5) H 04/11/17 05:18 Sodium 131 mEq/L (136-145) L 04/11/17 05:18 Calculated Osmolality 272 (280-300) L 04/11/17 05:18 Calcium 8.3 mg/dL (8.6-10.8) L 04/11/17 05:18 Magnesium 1.4 mg/dL (1.6-2.6) L 04/11/17 05:18 AST 81 Units/L (5-34) H 04/11/17 05:18 ALT 78 Units/L (0-55) H 04/11/17 05:18 Serum Total Protein 5.8 g/dL (6.0-8.3) L D 04/11/17 05:18 Albumin 3.1 g/dL (3.5-5.0) L D 04/11/17 05:18 HDL Cholesterol 66 mg/dL (40-59) H 04/11/17 05:18 Urine Color [place] (Yellow) A 04/10/17 19:20 Urine Clarity Cloudy (Clear) A 04/10/17 19:20 Ur Specific [place] 1.028 (1.010-1.025) H 04/10/17 19:20 Urine Ketones 40 mg/dL (Negative) H 04/10/17 19:20 Urine Bilirubin Large (Negative) H 04/10/17 19:20 Urine Urobilinogen 2.0 mg/dL (Normal) H 04/10/17 19:20 Ur Leukocyte Esterase Trace (Negative) H 04/10/17 19:20 Ur Squamous Epith Cells Moderate per lpf (None-Few) H 04/10/17 19:20 Consult Discharge Plan - Plan Referrals: Anjel Mac DO [Primary Care Provider] -
[2017-04-11] MEDS: Magnesium Oxide 400 MG TABLET PO SCH (20:13)
[2017-04-12] MEDS: 0.9 % Sodium Chloride 1,000 ML IVC SCH ×2 (05:53→05:55)
[2017-04-12] MEDS: *HR* Enoxaparin 40 MG/0.4 ML SYRINGE SQ SCH (06:33)
[2017-04-12 08:34] LABS: BUN/Creatinine Ratio 9 (6-26); Blood Urea Nitrogen 6 mg/dL (8-26); Calcium 8.1 mg/dL (8.6-10.8); Carbon Dioxide 22 mEq/L (19-29); Chloride 106 mEq/L (98-109); Glucose 96 mg/dL (70-99); Magnesium 1.1 mg/dL (1.6-2.6); Osmolality,Calculated 275 (280-300); Potassium 3.9 mEq/L (3.5-4.5); Sodium 134 mEq/L (136-145); eGFR For African Americans > 60 (> 60); eGFR For Non-African Americans > 60 (> 60)
[2017-04-12 08:50] LABS: Basophils % 0.6 %; Eosinophils # 0.1 K/mcL (0.0-0.6); Eosinophils % 1.6 %; Hematocrit 32.8 % (37.5-50.1); Hemoglobin 11.4 g/dL (12.9-16.9); Immature Granulocytes % 0.6 % (0-4); Immature Platelets 8.2 % (1.1-6.1); Lymphocytes # 1.3 K/mcL (0.6-4.6); Lymphocytes % 19.5 %; Mean Corpuscular HGB Conc 34.8 g/dL (31.6-35.5); Mean Corpuscular Hemoglobin 36.4 pg (28.0-33.3); Mean Corpuscular Volume 104.8 fL (83.0-100.0); Monocytes # 0.8 K/mcL (0.0-1.3); Monocytes % 11.9 %; Neutrophils # 4.2 K/mcL (1.6-8.9); Platelet Count 152 K/mcL (140-400); Red Blood Count 3.13 M/mcL (4.19-5.50); Red Cell Distribution Width 16.9 % (11.5-14.5); Segmented Neutrophils % 65.8 %
[2017-04-12] MEDS: Magnesium Oxide 400 MG TABLET PO SCH (09:02)
[2017-04-12] MEDS: Aspirin 81 MG TAB.CHEW PO SCH (09:02)
[2017-04-12] MEDS: Nicotine 21 MG PATCH.TD24 TD SCH (09:02)
[2017-04-12] MEDS: *HR* HYDROcodone/Acet 5/325 mg TABLET PO PRN (09:02)
[2017-04-12] MEDS ORDERED: Magnesium Sulfate 2 GM in D5% in Water 100 ML IVPB ONE (09:19)
[2017-04-12 16:20] VITALS: BP 125/81
--- NOTE | 2017-04-12 17:03 | Discharge Summary ---
Date of Encounter: 04/12/17 Time of Encounter: 15:00 - Discharge Diagnosis (1) Weakness Priority: Primary Status: Acute Comments: Likely secondary to dehydration. Patient had nausea, vomiting, diarrhea for 2-1 /2 weeks prior to presentation. He is now tolerating a regular diet and is feeling better. Sending to inpatient rehab (2) Falls Priority: Primary Status: Acute Comments: sending to rehab Qualifiers: Encounter type: initial encounter Qualified Code(s): W19.XXXA - Unspecified fall, initial encounter (3) Hyponatremia with decreased serum osmolality Priority: Secondary Status: Chronic Comments: Acute on chronic and improved while admitted. (4) Inflammatory bowel disease Priority: Primary Status: Suspected Comments: GI panel negative however fecal lactoferrin positive suggestive of inflammatory bowel disease. Patient is currently tolerating a regular diet, will have him follow up outpatient with GI. Of note, GI consultation not possible at this time due to provider unavailability. (5) Diarrhea Priority: Primary Status: Resolved (6) Nausea & vomiting Priority: Primary Status: Resolved Qualifiers: Vomiting type: bilious vomiting Qualified Code(s): R11.14 - Bilious vomiting (7) Hypomagnesemia Priority: Primary Status: Acute Comments: repleted with PO and IV prior to discharge; will have it rechecked in a few days after discharge (8) Elevated LFTs Priority: Primary Status: Acute Comments: Mild, trended down, stable. Patient tolerated a regular diet and denied abdominal pain (9) Smoker Priority: Secondary Status: Chronic Comments: Declines counseling (10) DVT prophylaxis Priority: Primary Status: Acute Comments: Subcutaneous Lovenox while admitted - Discharge Medications Prescriptions: OxyCODONE/APAP 10/325 [Percocet 10/325 MG] 1 each PO Q6HR PRN #25 tab PRN Reason: Severe Pain Home Medications: Ferrous Sulfate 325 mg PO DAILY 11/04/15 [History] Ondansetron ODT [Zofran ODT] 4 mg SL Q6HR #10 tab.yuliya 03/31/17 [Rx] Aspirin 81 mg PO DAILY 04/10/17 [History] Atorvastatin Calcium [Lipitor] 20 mg PO DAILY 04/10/17 [History] Esomeprazole Magnesium [Nexium] 20 mg PO DAILY 04/10/17 [History] Lisinopril [Zestril] 10 mg PO DAILY 04/10/17 [History] OxyCODONE/APAP 10/325 [Percocet 10/325 MG] 1 each PO Q6HR PRN #25 tab 04/12/17 [ Rx] Allergies/Adverse Reactions: Allergies No Known Allergies Allergy (Verified 04/10/17 11:07) Procedures/tests Complete & Pending: Procedures Performed prior 72 hours Category Date Time Status MR head/brain w con [MR] Routine MRI 04/11/17 18:27 Completed MR head/brain wo con [MR] Routine MRI 04/10/17 13:08 Completed Date of admission: 04/10/17 12:39 Primary care physician: Anjel Mac DO Consults: 04/10/17 13:06 Consult to Occupational Therapy [CONS] Routine Comment: Evaluate, develop and implement POC Reason for Consult: generalized weakness Consult to Physical Therapy [CONS] Routine Comment: Evaluate, develop and implement POC Reason for Consult: generalized weakness Consult to Dye Winch Operator [CONS] Routine Reason for SW Consult: weakness, inability to care for self, discharge planning 04/11/17 08:53 Consult to Neurology [CONS] Routine Consulting Provider: Neurology [facility] Reason for Consult: here for weakness and falls. brain MRI with possible venous malformation Time Notified: 08:53 Call Completed: Yes Discharging clinician: Yasmeen Lechuga Anticipated date of discharge: 04/12/17 ([facility]) - Patient Status Disposition: Transfer Inpatient Rehab Fac Condition: Fair Functional capacity at discharge: uses cane/walker Overall status at discharge: patient is progressing back to baseline - Discharge Instructions Follow Up With: Anjel Mac DO [Primary Care Provider] - Additional Instructions: Follow-up with primary care provider within one to 2 weeks - Diet and Activity Activity: ambulate only with your walker, as per physical therapy, increase activity as tolerated Diet: low fat, low cholesterol, low salt diet Hospital course: Mr. Porter is a 57 year old male with past medical history of COPD, hypertension , hyperlipidemia, CVA in August with residual left-sided visual changes, left- sided hearing loss, hyperlipidemia, hypertension, PE, RA, tobacco abuse. Patient presented to the emergency department chief complaint of generalized weakness, falls, nausea, vomiting, abdominal pain, diarrhea 2.5 weeks. Patient stating 2.5 weeks prior to presentation that he fell and he felt as if he had a stroke and stated that he was generally weak. Since that fall, he developed diarrhea, nausea, vomiting decreased by mouth intake and states that he was too weak to take care of himself including bathing and fixing meals. He also endorsed headache, occasional shortness of breath, occasional chest pain, numbness, tingling in bilateral feet, subjective fever, chills, and congestion. Workup in the emergency department unremarkable other than hypomagnesemia. Chest x-ray negative. Head CT negative. KUB negative for acute processes. Patient was admitted to the hospitalist service for further evaluation and management. Brain MRI negative for acute processes but did reveal a possible venous malformation. Neurology was brought on board and in repeat MRI of the brain with contrast was obtained which was unremarkable and he was cleared per neurology who surmised this was likely not contributing to his current symptoms and likely just an incidental finding. Patient was able to tolerate a regular diet while admitted. Regarding his diarrhea, GI panel was negative however lactoferrin was positive suggestive of possible inflammatory bowel disease. He was instructed to follow up outpatient with GI (GI providers unavailable during this time). Patient was seen and evaluated by occupational and physical therapy both of whom recommended inpatient/swing bed. His magnesium was replaced both intravenously and orally and his magnesium levels decreased. He was sent on magnesium supplementation and his BMP was ordered to be rechecked in 3 days after discharge. He was discharged to [facility] in stable condition with close outpatient follow-up recommended. Of note, patient complained of chronic back pain and stated that he had been on narcotic pain medication up until approximately 3 months prior to presentation at which time he stated that the pain became bearable when he stopped taking his medications. His OARRS report checked out okay and he was given 1 week supply of pain medication prior to discharge. ITS Impressions Chest X-Ray 04/10/17 11:24 IMPRESSION: No acute cardiopulmonary process. D/ / 04/10/2017 12:08:43 Karlos العلي MD / [facility]i Interpreting Provider: Karlos العلي MD Head CT 04/10/17 11:24 IMPRESSION: No acute intracranial abnormality. D/ / Marques Mckeon MD / Marques Mckeon MD Interpreting Provider: Marques Mckeon MD X-Ray 04/10/17 13:06 IMPRESSION: Nonspecific bowel gas pattern with air-filled loops of small bowel and colon throughout the abdomen. D/ / Rico Rivas MD / Rico Rivas MD Interpreting Provider: Rico Rivas MD Brain MRI 04/10/17 13:08 IMPRESSION: There are no areas of restricted diffusion to suggest an acute ischemic event. There is a remote right occipital lobe infarct and remote lacunar infarcts in the basal ganglia and left thalamus. Moderate to severe chronic small vessel ischemic changes. Suspected venous malformation near the left lateral ventricle in the frontal lobe. Postcontrast images of the brain are suggested to further evaluate. D/ / 04/10/2017 17:05:13 Dot Santos MD / [facility] Interpreting Provider: Dot Santos MD Brain MRI 04/11/17 18:27 IMPRESSION: DVA within the left frontal lobe. Subacute to chronic infarct within the right occipital lobe with associated enhancement. D/ / Hitesh Doe MD / Hitesh Doe MD Interpreting Provider: Hitesh Doe MD - Time Spent with Patient Total time spent providing and/or coordinating discharge services: - Constitutional Vitals: Temp Pulse Resp BP Pulse Ox 98.1 F 73 15 125/81 97 04/12/17 16:18 04/12/17 16:18 04/12/17 16:18 04/12/17 16:18 04/12/17 16:18 General appearance: Present: A&O X 3, pleasant, no acute distress, answers questions appropriately - Head Head exam: Present: atraumatic, normocephalic - Eye Eye exam: Present: PERRL, conjuntiva pink, sclera anicteric Pupils: Present: PERRL - Neck Neck exam general surgery: Present: supple, trachea midline. Absent: lymphadenopathy - Respiratory Respiratory exam: Present: decreased breath sounds. Absent: accessory muscle use, rales, respiratory distress, rhonchi, wheezes - Cardiovascular Cardiovascular exam: Present: RRR, +S1, +S2. Absent: diastolic murmur, gallop, rubs, systolic murmur - GI/Abdominal GI/Abdominal exam: Present: normal bowel sounds, soft, no peritoneal signs. Absent: distended, tenderness - Extremities Exam Extremities exam: Present: warm, radial pulses palpable and symetrical. Absent : calf tenderness, cyanotic, pedal edema - Neurological Exam Neurological exam: Present: alert, CN II-XII intact, oriented X3, no focal deficits, pronater drift (chornic). Absent: normal gait, strengths equal and symetr throughout, facial droop, speech deficit - Skin Skin exam: Present: dry, intact, normal color, warm
[2017-04-12] MEDS ORDERED: *HR* OxyCODONE/APAP 10/325 TABLET PO PRN (17:06)
--- NOTE | 2017-04-12 17:27 | Physician Discharge Referral ---
ExtendedCare Referral Info Transfer To: [place] Provider in Charge: Karri Lechuga CNP Provider in Charge after Transfer: PCP Institutional Level of Care: Skilled - Diagnosis (1) Weakness Priority: Primary Status: Acute (2) Falls Priority: Primary Status: Acute (3) Hyponatremia with decreased serum osmolality Priority: Secondary Status: Chronic (4) Inflammatory bowel disease Priority: Primary Status: Suspected (5) Diarrhea Priority: Primary Status: Resolved (6) Nausea & vomiting Priority: Primary Status: Resolved (7) Hypomagnesemia Priority: Primary Status: Acute (8) Elevated LFTs Priority: Primary Status: Acute (9) Smoker Priority: Secondary Status: Chronic (10) DVT prophylaxis Priority: Primary Status: Acute Prognosis: Fair Aware of Diagnosis: Patient Aware of Prognosis: Patient - Transfer Medications Prescriptions: OxyCODONE/APAP 10/325 [Percocet 10/325 MG] 1 each PO Q6HR PRN #25 tab PRN Reason: Severe Pain Magnesium Oxide [Mag-Ox] 400 mg PO BID #60 tab Home Medications: Ferrous Sulfate 325 mg PO DAILY 11/04/15 [History] Ondansetron ODT [Zofran ODT] 4 mg SL Q6HR #10 tab.rapdis 03/31/17 [Rx] Aspirin 81 mg PO DAILY 04/10/17 [History] Atorvastatin Calcium [Lipitor] 20 mg PO DAILY 04/10/17 [History] Esomeprazole Magnesium [Nexium] 20 mg PO DAILY 04/10/17 [History] Lisinopril [Zestril] 10 mg PO DAILY 04/10/17 [History] Magnesium Oxide [Mag-Ox] 400 mg PO BID #60 tab 04/12/17 [Rx] OxyCODONE/APAP 10/325 [Percocet 10/325 MG] 1 each PO Q6HR PRN #25 tab 04/12/17 [ Rx] Allergies/Adverse Reactions: Allergies No Known Allergies Allergy (Verified 04/10/17 11:07) - Respiratory Orders Smoking Cessation: Smoking cessation has been advised. For more information, call the [place] Tobacco Quit Line at 3-231-GQSC-NOW. - Lab Orders Lab Orders: Other (include drug levels w/frequency) (BMP and Mag levels in 3 days) - Ancillary Orders May use pressure relief devices daily prn, May go on JASE w/family/respon democrat w /meds at nurse discretion PRN, May have alcoholic beverages, May consult with Dentist, Filter Cleaner, Electrician Rectifier Maintenance PRN - Advance Directives Living Will: No Power of Fitness Sales Associate: No Code Status: Full Code - Mobility Orders Ambulate (per PT) - Rehabiliation Orders Rehab Potential: Good Rehab Orders: ROM Exercises, Evaluation for Physical Therapy, Evaluation for Occupational Therapy - Treatments Skin tear care topically daily PRN per policy, May check for fecal impaction rectally daily PRN, Fleet enema rectally every other day PRN cleansing purposes - Diet Orders No Added Salt (BJ) CERTIFICATION: I certify that the transfer of the above named patient to an Extended Care Facility is necessary for the continuing treatment of the diagnosis listed. The above information is true and accurate reflection of patient's current condition. Confidential - Redisclosure prohibited without a patient's written consent.
== END 2017-04-12 18:25 ==
LOC: EMEROO 11:04 → 3BNU 11:04 → SUATTDRO 12:39 → 3BNU 13:42
PROVIDERS: ADMIT Registered Nurse; ATTEND Nurse Practitioner Family

== ENCOUNTER 2017-07-04 14:05 | Inpatient (IN) ==
[2017-07-04] MEDS ORDERED: *HR* HYDROmorphone (PF) 1 MG/ML SYRINGE IVP ONE ×2 (14:41→15:11)
[2017-07-04] MEDS ORDERED: 0.9 % Sodium Chloride 500 ML IVC ONE (14:41)
--- NOTE | 2017-07-04 14:42 | Emergency Department Note ---
Disposition Clinical Impression: Cellulitis, Peripheral artery disease Disposition: Admitted As Inpatient Condition: Good General Adult HPI - General Chief complaint: ED Extremity Problem,Nontraumatic Stated complaint: foot swelling, vascular issue Time Seen by Provider: 07/04/17 14:33 Source: patient Limitations: no limitations - History of Present Illness Pain Scale: 10 - Related Data Home Medications Medication Instructions Recorded Confirmed Apixaban [Eliquis] 5 mg PO BID 07/04/17 07/04/17 Bisacodyl [Dulcolax] 10 mg RC DAILY 07/04/17 07/04/17 Cilostazol [Pletal] 100 mg PO BID 07/04/17 07/04/17 Furosemide [Lasix] 20 mg PO DAILY 07/04/17 07/04/17 LORazepam [Ativan] 1 mg PO Q6HR PRN 07/04/17 07/04/17 Nicotine [Nicotine Patch] 1 each TD 07/04/17 Ondansetron [Zuplenz] 4 mg PO Q6HR PRN 07/04/17 07/04/17 OxyCODONE/APAP 5/325 [Percocet 1 each PO Q4HR PRN 07/04/17 07/04/17 5/325 MG] Oxycodone HCl/Acetaminophen 10 mg PO Q4HR PRN 07/04/17 07/04/17 [Percocet 5-325 mg Tablet] Pantoprazole [Protonix] 40 mg PO BID 07/04/17 07/04/17 Potassium Chloride [K-Tab ER] 20 meq PO BID 07/04/17 07/04/17 traZODone [TraZODone] 50 mg PO HS 07/04/17 07/04/17 Allergies Allergy/AdvReac Type Severity Reaction Status Date / Time furosemide [From Lasix] AdvReac Vomiting Verified 07/04/17 14:13 Past Medical History - Past Medical History Medical history: Reports: asthma, atrial fibrillation, COPD, CVA, GERD, hyperlipidemia, hypertension, pulmonary embolus, RA, other Surgical history: Reports: hip replacement, orthopedic, other (foot x 3, back), other Psychiatric history: Reports: anxiety, depression - Social History Smoking Status: Former smoker Smokeless Tobacco Status: No Alcohol use: Reports: none, occasionally Drug use: Reports: none Physical Exam - General Limitations: no limitations General appearance: alert, in no apparent distress Course Vital Signs Temperature 97.8 F 07/04/17 14:10 Pulse Rate 100 07/04/17 14:10 Respiratory Rate 18 07/04/17 14:10 Blood Pressure 121/78 07/04/17 14:10 O2 Sat by Pulse Oximetry 91 07/04/17 14:10 Temperature 97.8 F 07/05/17 06:40 Pulse Rate 79 07/05/17 06:40 Respiratory Rate 16 07/05/17 06:40 Blood Pressure 144/78 07/05/17 06:40 O2 Sat by Pulse Oximetry 93 07/05/17 06:40 Oxygen Delivery Oxygen Delivery Room Air Medical Decision Making - Lab Data Result diagrams: 07/05/17 01:50 07/05/17 01:50 Lab Results 07/04/17 07/04/17 07/04/17 Range/Units 14:59 14:59 14:59 WBC 12.9 H (4.3-11.1) K/mcL RBC 3.37 L (4.19-5.50) M/mcL Hgb 10.8 L (12.9-16.9) g/dL Hct 34.1 L (37.5-50.1) % MCV 101.2 H (83.0-100.0) fL MCH 32.0 (28.0-33.3) pg MCHC 31.7 (31.6-35.5) g/dL RDW 17.2 H (11.5-14.5) % Plt Count 651 H D (140-400) K/mcL MPV 8.6 L (9.4-12.4) fL Immature Gran % 5.7 H (0-4) % Seg Neutrophils % 64.4 % Lymphocytes % 15.1 % Monocytes % 10.5 % Eosinophils % 3.3 % Basophils % 1.0 % Neutrophils # 8.3 (1.6-8.9) K/mcL Lymphocytes # 2.0 (0.6-4.6) K/mcL Monocytes # 1.4 H (0.0-1.3) K/mcL Eosinophils # 0.4 (0.0-0.6) K/mcL Basophils # 0.1 (0.0-0.2) K/mcL Dohle Bodies Present A (Not Present) Platelet Estimate Marked Increase H (Normal) ESR 68 H (0-10) mm/hr PT (9.4-12.1) Seconds INR APTT (26.0-36.0) Seconds Sodium 134 L (136-145) mEq/L Potassium 5.0 H (3.5-4.5) mEq/L Chloride 101 (98-109) mEq/L Carbon Dioxide 24 (19-29) mEq/L BUN 13 (8-26) mg/dL Creatinine 0.88 (0.72-1.25) mg/dL Est GFR ( Amer) > 60 (> 60) Est GFR (Non-Af Amer) > 60 (> 60) BUN/Creatinine Ratio 15 (6-26) Glucose 80 (70-99) mg/dL Calculated Osmolality 277 L (280-300) Lactic Acid (0.5-2.2) mmol/L Uric Acid (3.5-7.2) mg/dL Calcium 9.3 (8.6-10.8) mg/dL Magnesium (1.6-2.6) mg/dL C-Reactive Protein (Less than 5) mg/L 07/04/17 07/04/17 07/04/17 Range/Units 14:59 15:22 20:22 WBC (4.3-11.1) K/mcL RBC (4.19-5.50) M/mcL Hgb (12.9-16.9) g/dL Hct (37.5-50.1) % MCV (83.0-100.0) fL MCH (28.0-33.3) pg MCHC (31.6-35.5) g/dL RDW (11.5-14.5) % Plt Count (140-400) K/mcL MPV (9.4-12.4) fL Immature Gran % (0-4) % Seg Neutrophils % % Lymphocytes % % Monocytes % % Eosinophils % % Basophils % % Neutrophils # (1.6-8.9) K/mcL Lymphocytes # (0.6-4.6) K/mcL Monocytes # (0.0-1.3) K/mcL Eosinophils # (0.0-0.6) K/mcL Basophils # (0.0-0.2) K/mcL Dohle Bodies (Not Present) Platelet Estimate (Normal) ESR (0-10) mm/hr PT 12.3 H (9.4-12.1) Seconds INR 1.1 APTT 34.6 (26.0-36.0) Seconds Sodium (136-145) mEq/L Potassium (3.5-4.5) mEq/L Chloride (98-109) mEq/L Carbon Dioxide (19-29) mEq/L BUN (8-26) mg/dL Creatinine (0.72-1.25) mg/dL Est GFR ( Amer) (> 60) Est GFR (Non-Af Amer) (> 60) BUN/Creatinine Ratio (6-26) Glucose (70-99) mg/dL Calculated Osmolality (280-300) Lactic Acid 2.0 (0.5-2.2) mmol/L Uric Acid 3.3 L (3.5-7.2) mg/dL Calcium (8.6-10.8) mg/dL Magnesium (1.6-2.6) mg/dL C-Reactive Protein 34 H (Less than 5) mg/L 07/04/17 07/04/17 Range/Units 20:22 20:22 WBC (4.3-11.1) K/mcL RBC (4.19-5.50) M/mcL Hgb (12.9-16.9) g/dL Hct (37.5-50.1) % MCV (83.0-100.0) fL MCH (28.0-33.3) pg MCHC (31.6-35.5) g/dL RDW (11.5-14.5) % Plt Count (140-400) K/mcL MPV (9.4-12.4) fL Immature Gran % (0-4) % Seg Neutrophils % % Lymphocytes % % Monocytes % % Eosinophils % % Basophils % % Neutrophils # (1.6-8.9) K/mcL Lymphocytes # (0.6-4.6) K/mcL Monocytes # (0.0-1.3) K/mcL Eosinophils # (0.0-0.6) K/mcL Basophils # (0.0-0.2) K/mcL Dohle Bodies (Not Present) Platelet Estimate (Normal) ESR (0-10) mm/hr PT (9.4-12.1) Seconds INR APTT (26.0-36.0) Seconds Sodium (136-145) mEq/L Potassium (3.5-4.5) mEq/L Chloride (98-109) mEq/L Carbon Dioxide (19-29) mEq/L BUN (8-26) mg/dL Creatinine (0.72-1.25) mg/dL Est GFR ( Amer) (> 60) Est GFR (Non-Af Amer) (> 60) BUN/Creatinine Ratio (6-26) Glucose (70-99) mg/dL Calculated Osmolality (280-300) Lactic Acid 0.9 (0.5-2.2) mmol/L Uric Acid (3.5-7.2) mg/dL Calcium (8.6-10.8) mg/dL Magnesium 1.4 L (1.6-2.6) mg/dL C-Reactive Protein (Less than 5) mg/L Attestation Statement - Attestation Attestation: I examined this patient and my medical decision-making was reviewed with the Resident Physician. I agree with the documented findings, disposition and treatment plan as described except to the extent set forth below. [id number] time providing conjunction with the resident physician Dr. Morton Patient arrives complaining of right foot tenderness and swelling. His foot is erythematous, diffusely swollen and tender on exam. Appropriate color changes to the fifth digit. He recently had an investigation including an ankle brachial index, a CT aorta with runoff's and a duplex ultrasound which are indicated and occluded popliteal artery with collateral circulation and moderately decreased arterial flow.
--- NOTE | 2017-07-04 15:05 | Emergency Department Note ---
Disposition Clinical Impression: Peripheral artery disease Cellulitis Qualifiers: Site of cellulitis: extremity Site of cellulitis of extremity: lower extremity Laterality: right Qualified Code(s): L03.115 - Cellulitis of right lower limb Disposition: Admitted As Inpatient Condition: Good Referrals: Anjel Mac DO [Primary Care Provider] - Forms: ED Satisfaction Letter Time of Disposition: 18:02 Extremity Problem HPI - General Chief complaint: ED Extremity Problem,Nontraumatic Stated complaint: foot swelling, vascular issue Time Seen by Provider: 07/04/17 14:33 Source: patient Mode of arrival: ambulatory Limitations: no limitations Nursing Notes Reviewed: Yes Vital Signs Reviewed: Yes - History of Present Illness HPI Narrative: Patient presents to the ED with the chief complaint of right foot pain and swelling. Onset was about 2 weeks ago. States that he has had progressive pain and swelling since then. He was seen on the evening of 06/29 and for this pain. 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 He also had a DVT Ultrasound of the right lower extremity that was normal. ABG showed moderately diminished blood flow. Patient states that since then the pain has has not progressed but the pain and swelling is not getting any better. States it is very hot and swollen and he needs something for pain. He denies any fever, chest pain, shortness of breath, abdominal pain or vomiting. Pain Scale: 10 - Related Data Home Medications Medication Instructions Recorded Confirmed Ferrous Sulfate 325 mg PO DAILY 11/04/15 04/10/17 Aspirin 81 mg PO DAILY 04/10/17 04/10/17 Atorvastatin Calcium [Lipitor] 20 mg PO DAILY 04/10/17 04/10/17 Esomeprazole Magnesium [Nexium] 20 mg PO DAILY 04/10/17 04/10/17 Lisinopril [Zestril] 10 mg PO DAILY 04/10/17 04/10/17 Previous Rx's Medication Instructions Recorded Ondansetron ODT [Zofran ODT] 4 mg SL Q6HR #10 tab.rapdis 03/31/17 Magnesium Oxide [Mag-Ox] 400 mg PO BID #60 tab 04/12/17 OxyCODONE/APAP 10/325 [Percocet 1 each PO Q6HR PRN #25 tab 04/12/17 10/325 MG] OxyCODONE/APAP 10325 [Percocet 1 each PO Q6HR PRN #25 tablet 06/30/17 10/325 MG] Allergies Allergy/AdvReac Type Severity Reaction Status Date / Time furosemide [From Lasix] AdvReac Vomiting Verified 07/04/17 14:13 All systems ED: reviewed and negative except as stated. Constitutional: Denies: fever Cardiovascular: Denies: chest pain Gastrointestinal: Denies: abdominal pain, vomiting Musculoskeletal: Reports: as per HPI. Denies: back pain, neck pain Integumentary: Reports: as per HPI Past Medical History - Past Medical History Attestation: Yes The following information was validated with the patient. Source: patient Medical history: Reports: asthma, atrial fibrillation, COPD, CVA, GERD, hyperlipidemia, hypertension, pulmonary embolus, RA, other Surgical history: Reports: hip replacement, orthopedic, other (foot x 3, back), other Psychiatric history: Reports: anxiety, depression - Social History Smoking Status: Former smoker Smokeless Tobacco Status: No Alcohol use: Reports: none, occasionally Drug use: Reports: none Physical Exam - General Limitations: no limitations General appearance: alert, in no apparent distress - Head Head exam: atraumatic, normocephalic, normal inspection - Chest Chest inspection: Present: normal inspection, symmetric chest wall rise - Respiratory Respiratory exam: Present: normal lung sounds bilaterally - Cardiovascular Cardiovascular exam: Present: regular rate, normal rhythm, normal heart sounds - Abdominal Exam Abdominal exam: Present: soft, Non-Tender. Absent: tenderness, distention, guarding, rebound, rigidity - Expanded Lower Extremity Exam Hip/Pelvis exam: Present: normal inspection, full ROM Upper leg exam: Present: normal inspection, full ROM Knee exam: Present: normal inspection, full ROM Lower leg exam: Present: normal inspection, full ROM Ankle exam: Present: tenderness, swelling (moderate), abrasion (Patient does have an abrasion to the left lateral toe with an area of ulceration), erythema ( Significant erythema and warmth to the entire foot, exquisitely tender, compartments are soft). Absent: crepitus Foot/toe exam: Present: normal inspection. Absent: full ROM - Neurological Exam Neurological exam: Present: alert, oriented X3 - Psychiatric Psychiatric exam: Present: normal affect, normal mood - Skin Skin exam: Present: warm, dry, intact, erythema. Absent: normal color Course Course Narrative: 57-year-old male with known vascular disease presenting with a 2 week history of right foot pain and swelling that is gradually worsening. He does have a popliteal artery thrombus. However, he has excellent collateral flow. Will check CT with IV contrast for cellulitis then will consult vascular if necessary. - Consultations Consultation #1: Spoke with the on-call vascular surgeon, Dr. Green. Agreed that the patient's popliteal artery occlusion seems chronic. His ALEXIA is moderately decreased. However, we do not think that his current symptoms are due to limb ischemia. We will admit him to the hospitalist service for a cellulitis. Vital Signs Temperature 97.8 F 07/04/17 14:10 Pulse Rate 100 07/04/17 14:10 Respiratory Rate 18 07/04/17 14:10 Blood Pressure 121/78 07/04/17 14:10 O2 Sat by Pulse Oximetry 91 07/04/17 14:10 Temperature 97.8 F 07/04/17 14:10 Pulse Rate 100 07/04/17 14:10 Respiratory Rate 18 07/04/17 14:10 Blood Pressure 121/78 07/04/17 14:10 O2 Sat by Pulse Oximetry 91 07/04/17 14:10 Oxygen Delivery Oxygen Delivery Room Air Extremity Problem, Nontraumati - Medical Records Medical records reviewed: Yes I reviewed the patient's medical records. - Lab Data Lab results reviewed: Yes I reviewed the patient's lab results. Result diagrams: 07/04/17 14:59 07/04/17 14:59 Lab Results 07/04/17 07/04/17 07/04/17 Range/Units 14:59 14:59 14:59 WBC 12.9 H (4.3-11.1) K/mcL RBC 3.37 L (4.19-5.50) M/mcL Hgb 10.8 L (12.9-16.9) g/dL Hct 34.1 L (37.5-50.1) % MCV 101.2 H (83.0-100.0) fL MCH 32.0 (28.0-33.3) pg MCHC 31.7 (31.6-35.5) g/dL RDW 17.2 H (11.5-14.5) % Plt Count 651 H D (140-400) K/mcL MPV 8.6 L (9.4-12.4) fL Immature Gran % 5.7 H (0-4) % Seg Neutrophils % 64.4 % Lymphocytes % 15.1 % Monocytes % 10.5 % Eosinophils % 3.3 % Basophils % 1.0 % Neutrophils # 8.3 (1.6-8.9) K/mcL Lymphocytes # 2.0 (0.6-4.6) K/mcL Monocytes # 1.4 H (0.0-1.3) K/mcL Eosinophils # 0.4 (0.0-0.6) K/mcL Basophils # 0.1 (0.0-0.2) K/mcL Dohle Bodies Present A (Not Present) Platelet Estimate Marked Increase H (Normal) ESR 68 H (0-10) mm/hr Sodium 134 L (136-145) mEq/L Potassium 5.0 H (3.5-4.5) mEq/L Chloride 101 (98-109) mEq/L Carbon Dioxide 24 (19-29) mEq/L BUN 13 (8-26) mg/dL Creatinine 0.88 (0.72-1.25) mg/dL Est GFR ( Amer) > 60 (> 60) Est GFR (Non-Af Amer) > 60 (> 60) BUN/Creatinine Ratio 15 (6-26) Glucose 80 (70-99) mg/dL Calculated Osmolality 277 L (280-300) Lactic Acid (0.5-2.2) mmol/L Uric Acid (3.5-7.2) mg/dL Calcium 9.3 (8.6-10.8) mg/dL C-Reactive Protein (Less than 5) mg/L 07/04/17 07/04/17 Range/Units 14:59 15:22 WBC (4.3-11.1) K/mcL RBC (4.19-5.50) M/mcL Hgb (12.9-16.9) g/dL Hct (37.5-50.1) % MCV (83.0-100.0) fL MCH (28.0-33.3) pg MCHC (31.6-35.5) g/dL RDW (11.5-14.5) % Plt Count (140-400) K/mcL MPV (9.4-12.4) fL Immature Gran % (0-4) % Seg Neutrophils % % Lymphocytes % % Monocytes % % Eosinophils % % Basophils % % Neutrophils # (1.6-8.9) K/mcL Lymphocytes # (0.6-4.6) K/mcL Monocytes # (0.0-1.3) K/mcL Eosinophils # (0.0-0.6) K/mcL Basophils # (0.0-0.2) K/mcL Dohle Bodies (Not Present) Platelet Estimate (Normal) ESR (0-10) mm/hr Sodium (136-145) mEq/L Potassium (3.5-4.5) mEq/L Chloride (98-109) mEq/L Carbon Dioxide (19-29) mEq/L BUN (8-26) mg/dL Creatinine (0.72-1.25) mg/dL Est GFR ( Amer) (> 60) Est GFR (Non-Af Amer) (> 60) BUN/Creatinine Ratio (6-26) Glucose (70-99) mg/dL Calculated Osmolality (280-300) Lactic Acid 2.0 (0.5-2.2) mmol/L Uric Acid 3.3 L (3.5-7.2) mg/dL Calcium (8.6-10.8) mg/dL C-Reactive Protein 34 H (Less than 5) mg/L - Radiology Data Radiology results reviewed: Yes I reviewed the patient's radiology results. - EKG Data EKG attestation: Yes I reviewed and interpreted this EKG. EKG results narrative: Sinus rhythm, rate 88, TX interval 184, QRS 89, QTC 401, normal axis, no ischemic changes S.B.A.R. - S.B.A.R. Situation: Demographics, MOA Background: Presenting Complaint, Relevant PMH, Meds, & Allergies Assessment: Vital Signs, Course and respsone to treatment, Exam Concerns, Patient/Family Expectation, Pertinant Lab Results, Outstanding Labs Recommendation: Barrier(s) to disposition, Recommendation based on pending studies, treatments, or consults S.B.A.R. Report Given to: Dr. Hany DamicoAYousuf Repor Time: 18:01
[2017-07-04 15:06] LABS: Basophils # 0.1 K/mcL (0.0-0.2); Eosinophils # 0.4 K/mcL (0.0-0.6); Eosinophils % 3.3 %; Hematocrit 34.1 % (37.5-50.1); Hemoglobin 10.8 g/dL (12.9-16.9); Immature Granulocytes % 5.7 % (0-4); Lymphocytes % 15.1 %; Mean Corpuscular HGB Conc 31.7 g/dL (31.6-35.5); Mean Corpuscular Volume 101.2 fL (83.0-100.0); Mean Platelet Volume 8.6 fL (9.4-12.4); Monocytes # 1.4 K/mcL (0.0-1.3); Monocytes % 10.5 %; Neutrophils # 8.3 K/mcL (1.6-8.9); Platelet Count 651 K/mcL (140-400); Red Blood Count 3.37 M/mcL (4.19-5.50); Red Cell Distribution Width 17.2 % (11.5-14.5); Segmented Neutrophils % 64.4 %
[2017-07-04 15:18] LABS: BUN/Creatinine Ratio 15 (6-26); Blood Urea Nitrogen 13 mg/dL (8-26); Calcium 9.3 mg/dL (8.6-10.8); Carbon Dioxide 24 mEq/L (19-29); Chloride 101 mEq/L (98-109); Glucose 80 mg/dL (70-99); Osmolality,Calculated 277 (280-300); Sodium 134 mEq/L (136-145); eGFR For African Americans > 60 (> 60); eGFR For Non-African Americans > 60 (> 60)
[2017-07-04 15:19] LABS: Uric Acid 3.3 mg/dL (3.5-7.2)
[2017-07-04 15:39] LABS: Dohle Bodies Present (Not Present); Platelet Estimate Marked Increase (Normal)
[2017-07-04] MEDS ORDERED: Vancomycin 1,250 MG in D5% in Water 250 ML IVPB ONE (17:42)
[2017-07-04] MEDS ORDERED: Piperacillin/Tazobactam 4.5 GM in D5% in Water (Mini-Bag+) 100 ML IVPB ONE (17:42)
[2017-07-04] MEDS ORDERED: D5% in Water (Mini-Bag+) 100 ML IVPB ONE (17:53)
--- NOTE | 2017-07-04 19:32 | Internal Med History&Physical ---
Addendum entered and electronically signed by Karlos Haddad DO 07/04/17 22:22: Correction: Patient is on Eliquis BID, not Xarelto. Last dose of Eliquis was this AM. Will start patient on standard dose Heparin drip. Original Note: <Karlos Haddad - Last Filed: 07/04/17 21:57> Date of Encounter: 07/04/17 Time of Encounter: 19:32 Assessment and Plan (1) Cellulitis Current visit: Yes Status: Acute Afebrile, HR 100, WBC 12.9, ESR 68, CRP 34, Uric acid 3.3 Lactic acid 2.0 --> 0.9 CT right leg shows diffuse subcutaneous edema, no organized fluid collection identified. No acute osseous abnormality and no evidence for osteomyelitis. Postsurgical changes of the calcaneus on the right with no evidence for hardware failure. 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 Ununited fracture of the distal aspect of the proximal 2nd phalanx. Severe osteopenia. Blood and wound cultures pending Continue empiric Vanc and Zosyn, de-escalate antibiotics once cultures back Dilaudid, Morphine prn pain PT/OT consulted Qualifiers: Site of cellulitis: extremity Site of cellulitis of extremity: lower extremity Laterality: right Qualified Code(s): L03.115 - Cellulitis of right lower limb (2) Peripheral artery disease Current visit: Yes Status: Acute 06/29/17 ALEXIA was positive for moderate vascular disease, and CT aortogram with runoff showed complete occlusion in the right popliteal artery with excellent collateralization. Heparin drip Vascular surgery consulted (3) HTN (hypertension) Current visit: Yes Status: Acute Continue home meds Qualifiers: Hypertension type: unspecified Qualified Code(s): I10 - Essential (primary ) hypertension (4) Pulmonary embolism Current visit: Yes Status: Acute Recently diagnosed. Will obtain records from [place]. Hold Xarelto. Continue Heparin Qualifiers: Pulmonary embolism type: other Chronicity: acute Qualified Code(s): I26.99 - Other pulmonary embolism without acute cor pulmonale (5) Paroxysmal atrial fibrillation Current visit: Yes Status: Chronic CHADS-VASc Score 4 Hold Xarelto. Continue Heparin Currently in NSR Continue to monitor (6) History of CVA (cerebrovascular accident) Current visit: Yes Status: Chronic No residual deficits (7) Anemia Current visit: Yes Status: Chronic Patient reports recent negative EGD at [facility] and colonoscopy that revealed colon polyp. Patient reports being on Epogen 5 years ago Continue to monitor Qualifiers: Anemia type: unspecified type Qualified Code(s): D64.9 - Anemia, unspecified (8) COPD (chronic obstructive pulmonary disease) Current visit: Yes Status: Chronic Not in acute exacerbation Continue to monitor Qualifiers: COPD type: unspecified COPD Qualified Code(s): J44.9 - Chronic obstructive pulmonary disease, unspecified (9) Hyperkalemia Current visit: Yes Status: Acute Continue to monitor (10) Hypomagnesemia Current visit: No Status: Acute Supplement Mag Continue to monitor (11) DVT prophylaxis Current visit: No Status: Acute Hold Xarelto. Continue Heparin Internal Medicine - H&P: HPI Chief complaint: Right leg pain Admitted From: Long-term Nursing Facility (Rehab) Plans for Post Hospital Care: Transfer Inp Rehab Fac History of present illness: Mr. Porter is a 57 year old male from [facility] with a PMH of PAD, atrial fibrillation, pulmonary embolus on Xarelto, CVA, COPD, hypertension, and osteopenia that presented c/o worsening right foot pain and swelling for the past 2 weeks. Pain is localized from the mid calf down to the tips of his toes and is worsened by ROM and anything touching his foot. Of note, he was evaluated in the ED 5 days ago for same symptoms and lower extremity ultrasound demonstrated no DVT, ALEXIA was positive for moderate vascular disease, and CT aortogram with runoff showed complete occlusion in the right popliteal artery with excellent collateralization. Patient was instructed to follow up with outpatient vascular surgery and given Rx for Oxycodone. He returned today prior to vascular surgery follow up appointment due to worsening swelling and pain despite Oxycodone use. Patient reports usually being able to walk with a cane but has been unable to ambulate or bear weight due to pain and has a metal plate in his right ankle s/p ORIF. Patient reports associated chills and recently having his teeth extracted. He denies fever, CP, SOB, abd pain, N/V/D/C , sick contacts, or right leg trauma. Past Med Surg Social Fam HX - Past Medical History Medical history: asthma, atrial fibrillation, COPD, CVA, GERD, hyperlipidemia, hypertension, pulmonary embolus, RA, other (osteopenia) Psychiatric history: anxiety, depression - Past Surgical History Surgical History: hip replacement, orthopedic, other (right ankle ORIF), other - Social History Smoking Status: Former smoker Smokeless Tobacco Status: No Alcohol use: none Drug use: marijuana Current living situation: Other ([facility]) Recent Out of Country Travel Within the Last 8 Weeks: No Exposure or Possible Exposure to Illness During Travel: No - Family History Mother Living Status: Still Living Hx Family Cardiac Disorders: Yes ([place]) Hx Family Neurologic Disorders: Yes Father Living Status: Hx Family Cardiac Disorders: Yes Hx Family Cancer: Yes (Lung) Internal Medicine - H&P: Meds Apixaban [Eliquis] 5 mg PO BID 07/04/17 [History] Bisacodyl [Dulcolax] 10 mg RC DAILY 07/04/17 [History] Cilostazol [Pletal] 100 mg PO BID 07/04/17 [History] Furosemide [Lasix] 20 mg PO DAILY 07/04/17 [History] LORazepam [Ativan] 1 mg PO Q6HR PRN 07/04/17 [History] Nicotine [Nicotine Patch] 1 each TD 07/04/17 [History] Ondansetron [Zuplenz] 4 mg PO Q6HR PRN 07/04/17 [History] OxyCODONE/APAP 5/325 [Percocet 5/325 MG] 1 each PO Q4HR PRN 07/04/17 [History] Oxycodone HCl/Acetaminophen [Percocet 5-325 mg Tablet] 10 mg PO Q4HR PRN [History] Pantoprazole [Protonix] 40 mg PO BID 07/04/17 [History] Potassium Chloride [K-Tab ER] 20 meq PO BID 07/04/17 [History] traZODone [TraZODone] 50 mg PO HS 07/04/17 [History] 3 Allergy/AdvReac Type Severity Reaction Status Date / Time furosemide [From Lasix] AdvReac Vomiting Verified 07/04/17 14:13 All Systems PM: A 10-system review of systems was performed and is negative for pertinent findings except as documented above in the HPI. - Constitutional Constitutional: chills, no anorexia, no fatigue, no fever(s), no night sweats, no weakness, no weight gain, no weight loss - EENT Eyes: no change in vision Nose, mouth and throat: no bleeding gums, no nasal congestion, no sinus pressure Additional comments: edentulate - Cardiovascular Cardiovascular ROS IM: no chest pain, no palpitations - Respiratory Respiratory: no cough, no dyspnea, no excessive phlegm production - Gastrointestinal Gastrointestinal: no abdominal pain, no constipation, no diarrhea, no melena, no nausea, no vomiting - Genitourinary Genitourinary ROS male: no dysuria, no urinary frequency, no urinary urgency - Musculoskeletal Musculoskeletal ROS IM: arthralgias, back pain, joint swelling, limited range of motion, myalgias, tingling, no numbness - Integumentary Integumentary IM: erythema, new lesions, rash, skin ulcer, unusual bruising - Neurological Neurological ROS: abnormal gait, tingling, no confusion, no focal weakness, no numbness, no weakness - Psychiatric Psychiatric: no anxiety, no depression - Endocrine Endocrine IM: no polydipsia, no polyphagia, no polyuria - Allergic/Immunologic Allergic/Immunologic: no wheezing - Constitutional Vitals: Temp Pulse Resp BP Pulse Ox 98.7 F 83 16 138/94 95 07/04/17 18:50 07/04/17 18:50 07/04/17 18:50 07/04/17 18:50 07/04/17 18:50 General appearance: Present: cooperative, mild distress, A&O X 3, pleasant, answers questions appropriately Exam: appears older than stated age - Head Head exam: Present: atraumatic, normal inspection, normocephalic - Eye Eye exam: Present: EOMI, PERRL - ENT ENT exam: Present: mucous membranes moist, normal oropharynx - Expanded ENT Exam Teeth exam: Present: edentulous - Neck Neck exam general surgery: Present: normal inspection, supple. Absent: tenderness - Respiratory Respiratory exam: Present: CTAB. Absent: accessory muscle use, respiratory distress, wheezes - Cardiovascular Cardiovascular exam: Present: RRR, +S1, +S2 - GI/Abdominal GI/Abdominal exam: Present: normal bowel sounds, soft. Absent: distended, guarding, tenderness - Extremities Exam Extremities exam: Present: calf tenderness, joint swelling, normal capillary refill, pedal edema, tenderness, warm, radial pulses palpable and symmetrical. Absent: full ROM, normal inspection Additional comments: RLE 2+ edema, tender, warm, erythematous, with small 1cm blister between 4th & 5th toes, no drainage, compartments are soft - Back Exam Back exam: Present: normal inspection. Absent: paraspinal tenderness, tenderness, vertebral tenderness - Neurological Exam Neurological exam: Present: alert, oriented X3. Absent: altered, speech deficit Additional comments: decreased right foot pain due to pain - Psychiatric Psychiatric exam: Present: normal affect, normal mood - Skin Skin exam: Present: erythema, excoriation, warm. Absent: normal color Additional comments: RLE 2+ edema, tender, warm, erythematous, with small 1cm blister between 4th & 5th toes, no drainage - Expanded Skin Exam Distribution of rash: Present: RLE Description of rash: Present: blisters, erythematous, swelling Internal Med - H&P Results - Labs CBC & Chem 7: 07/04/17 14:59 07/04/17 14:59 - EKG Data -: EKG Interpreted by Myself EKG shows normal: sinus rhythm (NSR rate 88, IA interval 184, QRS 89, QTC 401, normal axis, no ischemic changes) - Impressions ITS Impressions Lower Extremity CT 07/04/17 15:04 IMPRESSION: 1. Diffuse subcutaneous edema which is nonspecific. Recommend clinical correlation for cellulitis. No organized fluid collection identified. Incidentally, at least moderate subcutaneous edema is noted throughout the partially visualized contralateral left lower extremity. 2. Postsurgical changes of the calcaneus on the right with no evidence for hardware failure. 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 3. Ununited fracture of the distal aspect of the proximal 2nd phalanx. 4. No acute osseous abnormality and no evidence for osteomyelitis. 5. Severe osteopenia. D/ / Marques Ariza MD / Marques Ariza MD Interpreting Provider: Marques Ariza MD <Darin Martinez - Last Filed: 07/04/17 23:28> Date of Encounter: 07/04/17 Time of Encounter: 22:35 - Cardiovascular Cardiovascular ROS IM: no chest pain, no dyspnea, no dyspnea on exertion, no irregular heart rhythm, no lightheadedness, no palpitations - Respiratory Respiratory: no dyspnea, no hemoptysis - Constitutional Vitals: Temp Pulse Resp BP Pulse Ox 97.6 F 93 16 137/78 93 07/04/17 21:39 07/04/17 21:39 07/04/17 21:39 07/04/17 21:39 07/04/17 21:39 General appearance: Present: mild distress, A&O X 3 - Eye Eye exam: Present: PERRL. Absent: scleral icterus - ENT ENT exam: Present: mucous membranes moist, normal oropharynx - Neck Neck exam general surgery: Present: supple - Expanded Neck Exam Neck exam: Absent: carotid bruit - Respiratory Respiratory exam: Present: CTAB. Absent: rales, rhonchi, wheezes - Cardiovascular Cardiovascular exam: Present: RRR, +S1, +S2 - GI/Abdominal GI/Abdominal exam: Present: soft. Absent: tenderness - Extremities Exam Additional comments: warm, red, tender right foot with small blister/early necrosis around 4th/5th digits; palpable pulses in both feet Internal Med - H&P Results - Labs CBC & Chem 7: 07/04/17 14:59 07/04/17 14:59 - EKG Data -: EKG Interpreted by Myself EKG shows normal: sinus rhythm (sinus rhythm; no acute changes) - Attending Attestation I discussed the patient [place], PMH, ROS, lab data, and exam findings with Dr. Haddad. I then saw and examined patient independently as well. Pt is a poor historian, but he does admit to history of paroxysmal atrial fibrillation. He is unaware of history of PE, but he vaguely remembers hearing about that at [facility] recently. He is not quite sure as to why he was started on anti-coagulation. He does complain of pain, redness, swelling, and warmth to his right foot for the last 2 weeks plus. Symptoms have worsened, and he now presents for admission. He has not yet seen vascular surgery, but he was due to see them this week. ER contacted Dr. Green and consulted him as well. Patient may likely need angiogram, but I'll defer to vascular surgery. Presently, his pain is better controlled. We'll continue IV antibiotics, IV heparin gtt, stop Eliquis for now, and monitor him closely. Further diagnostic and/or treatment measures per vascular surgery. Other than my comments above and noted exam findings, I agree with Dr. Haddad's assessment and plan.
[2017-07-04] MEDS ORDERED: Naloxone 0.4 MG/ML INJ IVP PRN (19:59)
[2017-07-04] MEDS ORDERED: Ondansetron 4 MG/2 ML VIAL IVP PRN (19:59)
[2017-07-04] MEDS ORDERED: Vancomycin (wt based) 1,000 MG VIAL IVPB SCH (20:00)
[2017-07-04 20:37] LABS: INR 1.1; Prothrombin Time 12.3 Seconds (9.4-12.1)
[2017-07-04] MEDS: 0.9 % Sodium Chloride 1,000 ML IVC SCH (20:39)
[2017-07-04] MEDS: *HR* HYDROmorphone (PF) 1 MG/ML SYRINGE IVP PRN (20:39)
[2017-07-04 20:40] LABS: Activated Partial Thrombo Time 34.6 Seconds (26.0-36.0)
[2017-07-04] MEDS ORDERED: Magnesium Sulfate 2 GM in D5% in Water 100 ML IVPB ONE (20:48)
[2017-07-04] MEDS ORDERED: *HR* Heparin 5,000 UNIT/ML VIAL IVP PRN (22:51)
[2017-07-04] MEDS ORDERED: *HR* Heparin 5,000 UNIT/ML VIAL IVP ONE (22:51)
[2017-07-04] MEDS ORDERED: Temazepam 15 MG CAPSULE PO PRN (23:14)
[2017-07-05] MEDS: Heparin 25,000 UNIT/500 ML D5W 25,000 UNIT/500 ML MLS IVC SCH ×2 (00:17→21:42)
[2017-07-05] MEDS: traZODone 50 MG TABLET PO SCH ×2 (00:18→21:40)
[2017-07-05] MEDS: Piperacillin/Tazobactam 3.375 GM in D5% in Water (Mini-Bag+) 100 ML IVPB SCH ×3 (00:18→16:55)
[2017-07-05] MEDS: *HR* Morphine 2 MG/ML SYRINGE IVP PRN ×3 (00:46→19:25)
[2017-07-05 02:24] LABS: Alanine Aminotransferase 8 Units/L (0-55); Albumin 2.4 g/dL (3.5-5.0); Albumin/Globulin Ratio 0.7 (1.1-2.2); Alkaline Phosphatase 71 Units/L (38-126); Aspartate Amino Transferase 11 Units/L (5-34); BUN/Creatinine Ratio 15 (6-26); Basophils # 0.1 K/mcL (0.0-0.2); Basophils % 1.2 %; Blood Urea Nitrogen 12 mg/dL (8-26); Calcium 8.7 mg/dL (8.6-10.8); Carbon Dioxide 23 mEq/L (19-29); Chloride 104 mEq/L (98-109); Eosinophils # 0.5 K/mcL (0.0-0.6); Eosinophils % 4.6 %; Globulin 3.3 g/dL (2.4-3.5); Glucose 105 mg/dL (70-99); Hematocrit 29.1 % (37.5-50.1); Hemoglobin 9.3 g/dL (12.9-16.9); Immature Granulocytes % 4.9 % (0-4); Lymphocytes # 1.8 K/mcL (0.6-4.6); Lymphocytes % 16.4 %; Mean Corpuscular Hemoglobin 32.4 pg (28.0-33.3); Mean Corpuscular Volume 101.4 fL (83.0-100.0); Mean Platelet Volume 8.8 fL (9.4-12.4); Monocytes # 1.2 K/mcL (0.0-1.3); Neutrophils # 6.8 K/mcL (1.6-8.9); Osmolality,Calculated 282 (280-300); Platelet Count 655 K/mcL (140-400); Potassium 4.7 mEq/L (3.5-4.5); Red Blood Count 2.87 M/mcL (4.19-5.50); Red Cell Distribution Width 17.1 % (11.5-14.5); Segmented Neutrophils % 61.9 %; Sodium 136 mEq/L (136-145); Total Protein 5.7 g/dL (6.0-8.3); eGFR For African Americans > 60 (> 60); eGFR For Non-African Americans > 60 (> 60)
[2017-07-05 02:25] LABS: Bilirubin,Total < 0.2 mg/dL (0.2-1.2)
[2017-07-05] MEDS: 0.9 % Sodium Chloride 1,000 ML IVC SCH ×2 (06:19→16:53)
[2017-07-05] MEDS: Vancomycin 1,250 MG in D5% in Water 250 ML IVPB SCH ×2 (06:19→20:00)
[2017-07-05] MEDS: Famotidine 20 MG/2 ML VIAL IVP SCH ×2 (06:19→16:55)
--- NOTE | 2017-07-05 08:48 | Event Note ---
Date of Encounter: 07/05/17 Time of Encounter: 07:20 The patient is seen and evaluated with rest and on morning rounds. I personally reviewed the CTA of the aorta and runoff. The patient has a combination of cellulitis and ischemic right forefoot. The toes are discolored. There is cellulitis on the dorsum of the foot. CTA demonstrates occlusion of the proximal popliteal artery. Although the CT at demonstrates reasonable collateralization, the forefoot remains ischemic area the patient has reconstitution of the infrageniculate popliteal artery and patent 3 vessel runoff to the foot. I believe that the patient would benefit from femoral infrageniculate popliteal bypass with [place] tissue. We will obtain a saphenous vein mapping today as well as cardiac risk stratification. Operative planning based on these findings
[2017-07-05 09:04] LABS: Phosphorous 4.7 mg/dL (2.3-4.7)
[2017-07-05] MEDS: Furosemide 20 MG TABLET PO SCH (09:53)
[2017-07-05] MEDS: Bisacodyl 10 MG RECTAL SUPPOSITORY RC SCH (09:54)
--- NOTE | 2017-07-05 10:26 | Vascular/Endovasc Consult Note ---
<Eugenia Bowens - Last Filed: 07/05/17 15:34> Date of Encounter: 07/05/17 Time of Encounter: 07:55 Assessment and Plan (1) Ischemia of foot Current Visit: Yes Status: Acute 3 weeks of worsening pain in his R lower extremity now causing inability to walk. PE shows cold toes with blue discoloration of 2nd and 5th digit with blue distal dosal tip.An aortogram with runoff showed completely and total occlusion of the right popliteal artery with 3 vessel collateral runoff. DVT ultrasound was negative and ALEXIA for R extremity showed dorsaliis pedis ALEXIA = 0.56, posterior tibial ALEXIA= 0.57. Left extremity showed dorsaliis pedis ALEXIA = 0.1.2, posterior tibial ALEXIA= 1.23. Therefore patient has severe R lower extremity PAD. Plan for femoral interior genicular popliteal bypass surgery for 07/06/17 pending cardiac approval post nuclear stress test. Patient's last Echo showed normal EF, ventricular, and valvular function. Saphenous vein mapping planned for today. Plan: - awaiting cardiology consult recommendations - nuclear stress test tomorrow morning prior to surgery - saphenous vein mapping - Cardiac diet current, NPO after midnight - plan for femoral interior genicular popliteal bypass surgery for 07/06/17 (2) Severe peripheral arterial disease Current Visit: Yes Status: Acute ALEXIA for R extremity showed dorsaliis pedis ALEXIA = 0.56, posterior tibial ALEXIA= 0.57. Left extremity showed dorsaliis pedis ALEXIA = 0.1.2, posterior tibial ALEXIA= 1.23. Therefore patient has severe R lower extremity PAD. (3) Ischemic pain of right foot Current Visit: Yes Status: Acute Pain being well managed currently by: - Morphine 2mg IVP Q4hrs prn - Dilaudid 1mg IVP Q3hr prn (4) Right popliteal artery occlusion Current Visit: Yes Status: Acute plan for bipass for femoral interior genicular popliteal bypass 07/06/17 pending cardiology approval. - History of Present Illness Consult date: 07/05/17 Requesting physician: Song Morton Consult reason: ALEXIA decrease, R leg pain Chief complaint: worsening R leg pain History of present illness: Mr. Porter is a 57 year old male with past medical history of A. fib, PE on Eliquis (per ED, patient doesn't know why he takes Eliquis or that he had a PE) , CVA, COPD, hypertension, PAD, presented to the ED with worsening right leg swelling and pain with previously found complete occlusion of a segment of the right popliteal artery and ALEXIA of R LE 0.57. Vascular surgery was consulted for decrease ALEXIA and worsening right LE pain. Pain feels like "when your feet get super cold in the winter" with numbness and tingling in his toes extending to about the middle of his foot. Painful at rest and with movement. Pain began about 3 weeks ago while in the [facility] had bilaterally painful/swollen feet of which the left resolved. Transferred to [place] (because hemoglobin= 5, no transfusions at the [facility], no source of bleeding found at the [place] after colonoscopy and EGD) where they did bilateral dopplers which were negative for clots (per ER note) and he was discharged to a shelter for rehab as he was unable to walk due to the pain. He returned to our ED on 06/29 and was referred to outpatient vascular surgery after an aortogram with runoff showed completely and total occlusion of the right popliteal artery with 3 vessel collateral runoff. DVT ultrasound was negative and ALEXIA for R extremity showed dorsaliis pedis ALEIXA = 0.56, posterior tibial ALEXIA= 0.57. Left extremity showed dorsaliis pedis ALEXIA = 0.1.2, posterior tibial ALEXIA= 1.23. Patient was discharged home from the ED on 06/29 and returned to the ED last night with still progressively worsening pain in the R calf and foot. CT of foot showed diffuse subcutaneous edema in R LE. Moderate subcutaneous edema in L LE. Proximal screws in the posterior subtalar joint with severe OA posterior subtalar. An ununited fracture distal aspect of proximal 2nd phalanx and severe osteopenia. Cardiac risk for surgery, patient's last echo 02/23/17 showed LVEF 55% with normal ventricular and valvular function. Nuclear stress test scheduled by cardiology outpatient but patient did not obtain. Patient had complaints of CP, SOB while moving, and dizziness in December after which the stress test was scheduled. Pmh of HTN, Afib, PE on Eliquis, and HTN. Smokes. Past Med Surg Social Fam HX - Past Medical History Medical history: asthma, atrial fibrillation, COPD, CVA (August 2016), GERD, hyperlipidemia, hypertension, pulmonary embolus, RA, other Psychiatric history: anxiety, depression - Past Surgical History Surgical History: hip replacement, orthopedic, other (foot x 3, back L5-S1), other (hydrocele repair ) - Social History Smoking Status: Former smoker Smokeless Tobacco Status: No Alcohol use: none, occasionally Drug use: none - Family History Mother Living Status: Still Living Hx Family Cardiac Disorders: Yes ([place]) Hx Family Neurologic Disorders: Yes Father Living Status: Hx Family Cardiac Disorders: Yes Hx Family Cancer: Yes (Lung) Medications and Allergies Apixaban [Eliquis] 5 mg PO BID 07/04/17 [History] Bisacodyl [Dulcolax] 10 mg RC DAILY PRN 07/04/17 [History] Cilostazol [Pletal] 100 mg PO BID 07/04/17 [History] LORazepam [Ativan] 1 mg PO Q6HR PRN 07/04/17 [History] OxyCODONE/APAP 5/325 [Percocet 5/325 MG] 1 each PO Q4HR PRN 07/04/17 [History] Oxycodone HCl/Acetaminophen [Percocet 5-325 mg Tablet] 2 tab PO Q4HR PRN [History] Potassium Chloride [K-Tab ER] 20 meq PO DAILY 07/04/17 [History] traZODone [TraZODone] 50 mg PO HS PRN 07/04/17 [History] Diltiazem CD (24hr) [Cardizem CD] 300 mg PO DAILY 07/05/17 [History] Gabapentin [Neurontin] 300 mg PO BID 07/05/17 [History] Gabapentin [Neurontin] 600 mg PO HS 07/05/17 [History] Magnesium Oxide [Mag-Ox] 400 mg PO DAILY 07/05/17 [History] Nicotine Patch [Nicoderm] 14 mg TD DAILY 07/05/17 [History] Ondansetron ODT [Zofran ODT] 4 mg PO Q6H PRN 07/05/17 [History] Pantoprazole Sodium [Protonix] 40 mg PO BID 07/05/17 [History] Torsemide [Demadex] 20 mg PO DAILY 07/05/17 [History] Vitamin B Complex [B Complex] 1 each PO QAM 07/05/17 [History] 3 Allergy/AdvReac Type Severity Reaction Status Date / Time codeine AdvReac See Verified 07/05/17 11:38 Comments furosemide [From Lasix] AdvReac Vomiting Verified 07/04/17 14:13 All Systems Review: A 10-system review of systems was performed and is negative for pertinent findings except as documented above in the HPI. Exam Vital Signs, Last 4 Hours Temp Pulse Resp BP Pulse Ox 07/05/17 06:40 97.8 F 79 16 144/78 93 Exam: Constitutional: Alert, in no acute distress, well nourished, well developed. Head: Normocephalic, atraumatic, normal contour and symmetric, no masses, lesions or scars Heart: Normal, regular rate and rhythm, no murmurs Lungs: Clear to auscultation, no wheezes, rales, or rhonchi Abdomen: Soft, nondistended, nontender, and no masses palpable, bowel sounds present and normal, no guarding or rigidity. Extremities: R LE warm up to toes, toes are cool to the touch, normal coloration until toes which have red patches and dark blue discoloration on the distal tip of the 2nd and 5th phalange, + 1 pitting edema at the ankle, dorsalis pedal pulse present with ultrasound, ~0.5cm scab on R 5th digit, L ankle with +1 pitting edema normal coloration and temperature, No clubbing. Skin: Skin warm and dry, no rashes, no jaundice, small scabs and bruising scattered throughout his arms, Neurologic: Cranial nerves II through XII grossly intact, no focal deficits, strength within normal limits in all extremities Psych: Cooperative with exam, good eye contact, cognitive function intact, judgment good insight good, speech clear, thought process logical, and goal directed Consult Discharge Plan - Plan Referrals: Anjel Mac DO [Primary Care Provider] - <Juan Green - Last Filed: 07/06/17 06:25> Date of Encounter: 07/05/17 - History of Present Illness History of present illness: Mr. Porter is a 57 year old male All Systems Review: A 10-system review of systems was performed and is negative for pertinent findings except as documented above in the HPI. Exam Vital Signs, Last 4 Hours Temp Pulse Resp BP Pulse Ox 07/06/17 06:00 97.9 F 90 17 154/96 96 - Attending Attestation I examined this patient and my medical decision-making was reviewed with the Resident Physician. I agree with the documented findings, disposition and treatment plan as described except to the extent set forth below. The patient is seen in the evaluated the morning rounds with resident. The patient has an obvious ischemic forefoot with discolored toes. Ankle brachial index is 0.57. CTA demonstrates chronic suprageniculate popliteal occlusion with prominent collaterals. This does not appear to be an acute embolic event or an acute popliteal occlusion because of the degree of collateralization. The forefoot is profoundly ischemic and a clear indication for revascularization. We will proceed with cardiac risk stratification and if the nuclear stress test is negative for cardiac ischemia we should proceed on an urgent basis to revascularization. The patient will undergo saphenous vein mapping to see if the saphenous vein is appropriate for bypass. Femoral infrageniculate popliteal bypass with saphenous vein in situ or PTFE will be required for limb salvage. Juan Green MD FACS
--- NOTE | 2017-07-05 11:14 | Internal Med Progress Note ---
Date of Encounter: 07/05/17 Time of Encounter: 10:15 - Assessment and plan (1) Ischemia of right lower extremity Current Visit: Yes Status: Acute Assessment and plan: Concerning for acute on chronic ischemia involving the right lower extremity with cellulitis. Vascular surgery consulted. Plan for saphenous vein mapping and possible popliteal bypass. Continue IV heparin for now. High risk for complications (2) Cellulitis Current Visit: Yes Status: Acute Assessment and plan: Likely due to ischemic limb. Continue IV antibiotics. Qualifiers: Site of cellulitis: extremity Site of cellulitis of extremity: lower extremity Laterality: right Qualified Code(s): L03.115 - Cellulitis of right lower limb (3) Peripheral artery disease Current Visit: Yes Status: Chronic Assessment and plan: Patient with history of peripheral artery disease. Currently on PLetal and IV heparin (4) History of CVA (cerebrovascular accident) Current Visit: Yes Status: Chronic (5) COPD (chronic obstructive pulmonary disease) Current Visit: Yes Status: Chronic Assessment and plan: Not in acute exacerbation. Will place patient on bronchodilators as needed Qualifiers: COPD type: unspecified COPD Qualified Code(s): J44.9 - Chronic obstructive pulmonary disease, unspecified (6) HTN (hypertension) Current Visit: Yes Status: Acute Assessment and plan: Blood pressure is elevated this morning. We will continue to monitor for now continue. Not on any antihypertensives at home. We will consider starting amlodipine if persistently elevated. Qualifiers: Hypertension type: essential hypertension Qualified Code(s): I10 - Essential (primary) hypertension (7) Paroxysmal atrial fibrillation Current Visit: Yes Status: Chronic Assessment and plan: Rate controlled and in regular rhythm. Currently on anticoagulation with IV heparin. (8) Pulmonary embolism Current Visit: Yes Status: Chronic Assessment and plan: Patient with history of PE. Was on Eliquis. Patient is currently on IV heparin. Qualifiers: Pulmonary embolism type: other Chronicity: acute Qualified Code(s): I26.99 - Other pulmonary embolism without acute cor pulmonale (9) Anemia Current Visit: Yes Status: Chronic Assessment and plan: Hemoglobin 9.3 today. Will monitor closely. Also check iron, folic acid and B12 levels. Qualifiers: Anemia type: unspecified type Qualified Code(s): D64.9 - Anemia, unspecified (10) Hyperkalemia Current Visit: Yes Status: Acute Assessment and plan: Improving. 4.7 today. - Subjective Interval history: Patient continues to have right foot pain. Denies any calf pain at this time. No other new complaints. No fever or chills reported - Constitutional Vitals: Temp Pulse Resp BP Pulse Ox 98.1 F 83 16 137/86 95 07/05/17 10:11 07/05/17 10:11 07/05/17 10:11 07/05/17 10:11 07/05/17 10:11 General appearance: Present: cooperative, mild distress, A&O X 3, answers questions appropriately - Neck Neck exam general surgery: Present: supple, trachea midline. Absent: lymphadenopathy - Respiratory Respiratory exam: Present: CTAB. Absent: accessory muscle use, rales, rhonchi, wheezes - Cardiovascular Cardiovascular exam: Present: RRR, +S1, +S2. Absent: diastolic murmur, gallop, rubs, systolic murmur - GI/Abdominal GI/Abdominal exam: Present: normal bowel sounds, soft, no peritoneal signs. Absent: distended, tenderness - Extremities Exam Extremities exam: Present: warm, radial pulses palpable and symmetrical. Absent : calf tenderness, cyanotic, pedal edema Additional comments: Patient continues to have signs of ischemia in his right foot with discoloration and blisters over his toes. He does have good capillary refill. - Neurological Exam Neurological exam: Present: alert, oriented X3, no focal deficits. Absent: facial droop, speech deficit Internal Medicine: Result - Labs CBC & Chem 7: 07/05/17 01:50 07/05/17 01:50 Labs: Short CBC 07/05/17 Range/Units 01:50 WBC 11.1 (4.3-11.1) K/mcL Hgb 9.3 L D (12.9-16.9) g/dL Hct 29.1 L (37.5-50.1) % Plt Count 655 H (140-400) K/mcL Neutrophils # 6.8 (1.6-8.9) K/mcL BMP 07/05/17 01:50 Sodium 136 Potassium 4.7 H Chloride 104 Carbon Dioxide 23 BUN 12 Creatinine 0.82 Glucose 105 H Calcium 8.7 Liver Function 07/05/17 Range/Units 01:50 Total Bilirubin < 0.2 L (0.2-1.2) mg/dL AST 11 (5-34) Units/L ALT 8 (0-55) Units/L Alkaline Phosphatase 71 (38-126) Units/L Albumin 2.4 L (3.5-5.0) g/dL - ABG Interpretation ABG results: PT/INR, D-dimer PT 12.3 Seconds (9.4-12.1) H 07/04/17 20:22 - VTE Reasons for not Prescribing Prophylaxis: Not indicated-Anticoagulated or INR therapeutic Consult Discharge Plan - Plan Referrals: Anjel Mac DO [Primary Care Provider] -
[2017-07-05] MEDS ORDERED: Ipratropium/Albuterol Neb 3 ML IH PRN (11:18)
[2017-07-05] MEDS: *HR* HYDROmorphone (PF) 1 MG/ML SYRINGE IVP PRN ×2 (13:54→20:28)
[2017-07-05] MEDS: *HR* Heparin 5,000 UNIT/ML VIAL IVP PRN ×2 (14:40→19:24)
[2017-07-05] MEDS: Nicotine 21 MG PATCH.TD24 TD SCH (16:51)
[2017-07-05] MEDS: *HR* LORazepam 1 MG TABLET PO PRN (16:59)
--- NOTE | 2017-07-05 19:56 | Anesthesia Evaluation PreOp ---
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, diminished hearing left ear) Other Medical History: GERD Anesthesia History: No Prior Anesthetic Complications, Past Anesthesia Alcohol Use: none (quit 6 weeks ago, H/O heavy use {1/5 whiskey QD}) Drug use: none Medications and Allergies Apixaban [Eliquis] 5 mg PO BID 07/04/17 [History] Bisacodyl [Dulcolax] 10 mg RC DAILY PRN 07/04/17 [History] Cilostazol [Pletal] 100 mg PO BID 07/04/17 [History] LORazepam [Ativan] 1 mg PO Q6HR PRN 07/04/17 [History] OxyCODONE/APAP 5/325 [Percocet 5/325 MG] 1 each PO Q4HR PRN 07/04/17 [History] Oxycodone HCl/Acetaminophen [Percocet 5-325 mg Tablet] 2 tab PO Q4HR PRN [History] Potassium Chloride [K-Tab ER] 20 meq PO DAILY 07/04/17 [History] traZODone [TraZODone] 50 mg PO HS PRN 07/04/17 [History] Diltiazem CD (24hr) [Cardizem CD] 300 mg PO DAILY 07/05/17 [History] Gabapentin [Neurontin] 300 mg PO BID 07/05/17 [History] Gabapentin [Neurontin] 600 mg PO HS 07/05/17 [History] Magnesium Oxide [Mag-Ox] 400 mg PO DAILY 07/05/17 [History] Nicotine Patch [Nicoderm] 14 mg TD DAILY 07/05/17 [History] Ondansetron ODT [Zofran ODT] 4 mg PO Q6H PRN 07/05/17 [History] Pantoprazole Sodium [Protonix] 40 mg PO BID 07/05/17 [History] Torsemide [Demadex] 20 mg PO DAILY 07/05/17 [History] Vitamin B Complex [B Complex] 1 each PO QAM 07/05/17 [History] 3 Allergy/AdvReac Type Severity Reaction Status Date / Time codeine AdvReac See Verified 07/05/17 11:38 Comments furosemide [From Lasix] AdvReac Vomiting Verified 07/04/17 14:13 - Meds/Allergy Pre-op Review Medications Reviewed: Yes Allergies Reviewed: Yes Beta Blockers on Current Med List: No Anesthesia Results - Labs 07/05/17 01:50 07/05/17 01:50 - Imaging EKG: report reviewed (04/10/2017 SINUS RHYTHM WITH FREQUENT SUPRAVENTRICULAR PREMATURE COMPLEXES LOW QRS VOLTAGE IN EXTREMITY LEADS) Additional studies: 02/23/2017 Echo Impressions: LVEF 55%. Normal LV chamber size, wall thickness and function. Mild left ventricular diastolic dysfunction. Normal right ventricular structure and function. No evidence of pulmonary hypertension. No significant valvular dysfunction. Anesthesia Exam Vital Signs/O2 Sat, Most Current Temp Pulse Resp BP Pulse Ox 97.6 F 94 16 149/86 96 07/05/17 15:49 07/05/17 15:49 07/05/17 15:49 07/05/17 15:49 07/05/17 15:49 Height: 6'/1.83 m Weight: 177 lbs/80.286 kg - HEENT Pupil (Motor): EOMI Mallampati: II Teeth: Edentulous Oral Opening: Greater than 3 - TERMINOLOGIST LOC: Oriented TERMINOLOGIST Motor: Normal RUE, Normal LUE, Normal RLE, Normal LLE, Normal Face TERMINOLOGIST Sensory: Normal: RUE, LUE, LLE, Face, Deficit: RLE (tingling right foot) - Cardiac Rhythm: Regular Murmur: None - Pulmonary Breath Sounds: bilateral Clear Respiratory Effort: Symmetrical Anesthesia Assess/Plan ASA Score: 3 Modified Amara Scale for Level of Consciousness: Cooperative, oriented, and tranquil Anesthetic Plan: General Monitoring Plan: Standard Monitors Recovery Plan: PACU
[2017-07-06] MEDS: *HR* Morphine 2 MG/ML SYRINGE IVP PRN ×3 (00:12→10:18)
[2017-07-06] MEDS: *HR* HYDROmorphone (PF) 1 MG/ML SYRINGE IVP PRN ×4 (01:42→23:11)
[2017-07-06 01:43] LABS: Basophils # 0.2 K/mcL (0.0-0.2); Basophils % 1.3 %; Eosinophils # 0.5 K/mcL (0.0-0.6); Hematocrit 31.6 % (37.5-50.1); Hemoglobin 10.2 g/dL (12.9-16.9); Immature Granulocytes % 2.7 % (0-4); Lymphocytes # 2.5 K/mcL (0.6-4.6); Lymphocytes % 21.9 %; Mean Corpuscular HGB Conc 32.3 g/dL (31.6-35.5); Mean Corpuscular Hemoglobin 32.9 pg (28.0-33.3); Mean Corpuscular Volume 101.9 fL (83.0-100.0); Mean Platelet Volume 8.8 fL (9.4-12.4); Monocytes # 1.3 K/mcL (0.0-1.3); Monocytes % 11.6 %; Neutrophils # 6.6 K/mcL (1.6-8.9); Platelet Count 680 K/mcL (140-400); Red Cell Distribution Width 17.2 % (11.5-14.5); Segmented Neutrophils % 58.5 %
[2017-07-06 01:56] LABS: % Iron Saturation 31 % (20-55); BUN/Creatinine Ratio 11 (6-26); Blood Urea Nitrogen 9 mg/dL (8-26); Calcium 9.1 mg/dL (8.6-10.8); Carbon Dioxide 21 mEq/L (19-29); Chloride 104 mEq/L (98-109); Glucose 100 mg/dL (70-99); Iron 84 mcg/dL (65-175); Osmolality,Calculated 279 (280-300); Potassium 4.9 mEq/L (3.5-4.5); Sodium 135 mEq/L (136-145); Transferrin 194 mg/dL (174-364); eGFR For African Americans > 60 (> 60); eGFR For Non-African Americans > 60 (> 60)
[2017-07-06] MEDS: *HR* Heparin 5,000 UNIT/ML VIAL IVP PRN (02:09)
[2017-07-06 02:17] LABS: Ferritin 1092 ng/ml (22-275)
[2017-07-06 02:31] LABS: Folate 6.8 ng/mL (7.0-31.4)
[2017-07-06] MEDS: Piperacillin/Tazobactam 3.375 GM in D5% in Water (Mini-Bag+) 100 ML IVPB SCH ×2 (02:46→10:18)
[2017-07-06] MEDS: *HR* LORazepam 1 MG TABLET PO PRN ×3 (02:46→21:27)
[2017-07-06] MEDS ORDERED: Regadenoson 0.4 MG/5 ML SYRINGE IVP ONE (05:43)
[2017-07-06] MEDS: Famotidine 20 MG/2 ML VIAL IVP SCH (06:57)
[2017-07-06] MEDS ORDERED: Folic Acid 1 MG in D5% in Water 50 ML IVPB ONE (07:47)
--- NOTE | 2017-07-06 08:21 | Electrocardiograph Report ---
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
--- NOTE | 2017-07-06 09:48 | Nuclear Medicine Stress Report ---
Regadenoson Nuclear Stress Name: Anders Porter Date of Study: 07/06/2017 Date: 1960 Ht: 72.0 in Medical Record#: [id number] Age: 57 Wt: 177.0 lb Gender: Male Order #: [id number] Location: [facility] Room: [facility] Supervising Provider: Martinez Calvillo CNP Reading Physician: Kasi Calloway DO, FAC, [facility] Ordering Physician: Gerardo Issa MD Stress Technologist: Claudia Tomas RRT Online Trader: Jules Canela Indications: Chest Pain Impression: Pharmacologic stress ECG is negative for ischemia at level of heart rate achieved. Gated EF = 51%. Small sized, moderate intensity, fixed mid to apical inferior perfusion defect. Wall motion appears normal. These findings are suggestive of artifact. Perfusion imaging was negative for ischemia or infarct. History: Hypertension History of Smoking Stress Test Summary: Stress Test Type: Pharmacologic Regadenoson 0.4mg/5ml given IV Baseline Information: Initial Heart Rate: 88 Blood Pressure: 158/96 Stress Information: Test Terminated Due to (primary): As per protocol Maximum Blood Pressure: 136/88 Maximum Heart Rate: 112 Percent Maximum Heart Rate Achieved: 69 Double Product: [id number] METS Reached: 1 Symptoms: No chest symptoms Nuclear Summary: SPECT myocardial perfusion imaging using Tc99m Sestamibi given intravenously was performed at rest and following cardiac stress testing. The resting images were obtained following initial dose of 11 mCi. Following stress an additional dose of 35.4 mCi was given at peak exercise or 30 seconds post regadenoson infusion. Medication Given: Time Medication Dose Units Route Findings: Stress Note * Resting ECG demonstrated normal sinus rhythm. * No baseline arrhythmias were noted. * Pharmacologic stress ECG is negative for ischemia at level of heart rate achieved. * No arrhythmias were noted during stress. * Patient had no chest pain during stress. * Normal hemodynamic responses to pharmacologic stress. Study Quality * Study quality is average. Gated EF % * Gated EF = 51%. Left Ventricle * The left ventricle is not dilated. LVEDV = 108 mL. Inferior Perfusion Rest * The inferior segment shows a moderate reduction in perfusion. Inferior Perfusion Stress * The inferior segment shows a moderate reduction in perfusion. TID * No evidence of transient ischemic dilatation. TID ratio = 1.12. Lung Uptake * There is no evidence of increase lung uptake. Updated by Kasi Calloway DO, GOGO, BRISEIDA, RUBI on 07/06/2017 9:40:47 AM electronically signed on 07/06/2017 9:42:13 AM with status of Final
--- NOTE | 2017-07-06 09:54 | Cardiology Progress Note ---
Assessment and Plan Discussion w patient/family: The assessment and plan as outlined above was discussed with the patient and/or family members who expressed understanding and agreement. All questions were answered. Thank you for involving us in the care of your patient. Please call with any questions. Objective Vital Signs, Last 4 Hours Temp Pulse Resp BP Pulse Ox 07/06/17 06:25 98.1 F 93 16 148/94 95 07/06/17 06:00 97.9 F 90 17 154/96 96 Results 07/06/17 01:28 07/06/17 01:28 Lab Results 07/05/17 07/05/17 07/05/17 13:03 14:03 18:31 WBC Hgb Hct Plt Count APTT 42.0 H 55.3 H Sodium Potassium Chloride Carbon Dioxide BUN Creatinine Glucose Calcium Troponin I 0.00 07/05/17 07/06/17 07/06/17 21:19 01:28 01:28 WBC 11.3 H Hgb 10.2 L Hct 31.6 L Plt Count 680 H APTT Sodium 135 L Potassium 4.9 H Chloride 104 Carbon Dioxide 21 BUN 9 Creatinine 0.80 Glucose 100 H Calcium 9.1 Troponin I 0.00 07/06/17 01:28 WBC Hgb Hct Plt Count APTT 55.7 H Sodium Potassium Chloride Carbon Dioxide BUN Creatinine Glucose Calcium Troponin I - VTE Reasons for not Prescribing Prophylaxis: Not indicated-Anticoagulated or INR therapeutic Consult Discharge Plan - Plan Referrals: Anjel Mac DO [Primary Care Provider] -
[2017-07-06] MEDS: Vancomycin 1,250 MG in D5% in Water 250 ML IVPB SCH ×2 (10:02→23:13)
--- NOTE | 2017-07-06 10:10 | Cardiology Consult Note ---
Date of Encounter: 07/06/17 Time of Encounter: 07:45 Assessment and Plan (1) Pre-operative cardiovascular examination Current Visit: Yes Status: Acute Patient denies chest pain. He does have poor functional capacity and SOB with moderate activity. He is scheduled to undergo right leg popliteal bypass today. Patient underwent stress test for pre-operative risk stratification. Cardiac risk factors include tobacco use, HTN, HLD, and PVD. RAVEN 02/23/2017: LVEF 55%. Normal LV, RV size and function. Mild diastolic dysfunction. No evidence of pulmonary hypertension. No significant valvular dysfunction. Stress test perfusion imaging negative for ischemia. EF 51% Pharmacologic stress ECG is negative for ischemia at level of heart rate achieved. Acceptable risk for planned surgery. No further testing indicated. (2) Severe peripheral arterial disease Current Visit: Yes Status: Acute Right popliteal artery occlusion seen on CT. Vascular surgery following. Planning for surgery today. (3) Paroxysmal atrial fibrillation Current Visit: Yes Status: Chronic Recently diagnosed with atrial fibrillation and PE. He was seen at out-side hospital. Records ordered by primary team Currently NSR. Continue cardizem. On eliquis for AC. Currently on heparin gtt with eliquis bridge. Discussion w patient/family: The assessment and plan as outlined above was discussed with the patient and/or family members who expressed understanding and agreement. All questions were answered. Thank you for involving us in the care of your patient. Please call with any questions. History of Present Illness Consult date: 07/06/17 Requesting physician: Radha Gil Consult reason: pre-operative risk assessment Chief complaint: Right foot pain, edema, and discoloration History of present illness: Mr. Porter is a 57 year old male with a history of PVD, recent diagnosis of atrial fibrillation on eliquis, CVA, COPD, hypertension, and osteopenia and tobacco use who presented with right foot tenderness, edema, and discoloration. He was recently evaluated in the out-pt setting for PVD. He had a ankle brachial index and CT of the aorta with runoff's and a duplex ultrasound which indicated occluded popliteal artery with collateral circulation and moderately decreased arterial flow. He is now schedule to undergo popliteal bypass today. He is also being treated for cellulites of the right foot. Cardiology consulted for pre-operative risk assessment. He reports having poor functional capacity due to pain in his foot. He can climb a flight of stairs without chest pain. He admits to SOB with moderate activity. He does limit his walking due to foot pain. He denies history of CAD. Denies chest pain, palpitations. Denies dizziness or lightheadedness. Denies N/V , or diaphoresis. Previous cardiac testing: RAVEN 02/23/2017: LVEF 55%. Normal LV, RV size and function. Mild diastolic dysfunction. No evidence of pulmonary hypertension. No significant valvular dysfunction. Past Med Surg Social Fam HX - Past Medical History Medical history: asthma, atrial fibrillation, COPD, CVA (August 2016), GERD, hyperlipidemia, hypertension, pulmonary embolus, RA, other Psychiatric history: anxiety, depression - Past Surgical History Surgical History: hip replacement, orthopedic, other (foot x 3, back L5-S1), other (hydrocele repair ) - Social History Smoking Status: Former smoker Smokeless Tobacco Status: No Alcohol use: none (quit 6 weeks ago, H/O heavy use {1/5 whiskey QD}) Drug use: none - Family History Mother Living Status: Still Living Hx Family Cardiac Disorders: Yes (DC) Hx Family Neurologic Disorders: Yes Father Living Status: Hx Family Cardiac Disorders: Yes Hx Family Cancer: Yes (Lung) Medications and Allergies Apixaban [Eliquis] 5 mg PO BID 07/04/17 [History] Bisacodyl [Dulcolax] 10 mg RC DAILY PRN 07/04/17 [History] Cilostazol [Pletal] 100 mg PO BID 07/04/17 [History] LORazepam [Ativan] 1 mg PO Q6HR PRN 07/04/17 [History] OxyCODONE/APAP 5/325 [Percocet 5/325 MG] 1 each PO Q4HR PRN 07/04/17 [History] Oxycodone HCl/Acetaminophen [Percocet 5-325 mg Tablet] 2 tab PO Q4HR PRN [History] Potassium Chloride [K-Tab ER] 20 meq PO DAILY 07/04/17 [History] traZODone [TraZODone] 50 mg PO HS PRN 07/04/17 [History] Diltiazem CD (24hr) [Cardizem CD] 300 mg PO DAILY 07/05/17 [History] Gabapentin [Neurontin] 300 mg PO BID 07/05/17 [History] Gabapentin [Neurontin] 600 mg PO HS 07/05/17 [History] Magnesium Oxide [Mag-Ox] 400 mg PO DAILY 07/05/17 [History] Nicotine Patch [Nicoderm] 14 mg TD DAILY 07/05/17 [History] Ondansetron ODT [Zofran ODT] 4 mg PO Q6H PRN 07/05/17 [History] Pantoprazole Sodium [Protonix] 40 mg PO BID 07/05/17 [History] Torsemide [Demadex] 20 mg PO DAILY 07/05/17 [History] Vitamin B Complex [B Complex] 1 each PO QAM 07/05/17 [History] 3 Allergy/AdvReac Type Severity Reaction Status Date / Time codeine AdvReac See Verified 07/05/17 11:38 Comments furosemide [From Lasix] AdvReac Vomiting Verified 07/04/17 14:13 All Systems Review: A 10-system review of systems was performed and is negative for pertinent findings except as documented above in the HPI. Physical Examination Vital Signs, Last 4 Hours Temp Pulse Resp BP Pulse Ox 07/06/17 06:25 98.1 F 93 16 148/94 95 General: Conversant, No Apparent Distress HEENT: Atraumatic, Normocephaly, Mucus Membranes Moist Neck: No JVD, Normal carotid pulses Cardiac: Reg Rate and Rhythm, Normal S1 and S2, No Murmur, Other (NSR) Lungs: Normal Breath Sounds, No Wheeze, Rales, Rhonchi Neuro: Alert and responsive, No focal deficits noted Abdomen: Soft, Non-Tender Skin: No rashes noted on visualized skin Musculoskeletal: No Chest Wall Tenderness Extremities: Other (RLE with redness and 1+ ankle edema noted. Decreased BLE bilaterally. Denies pain with palpation. ) Results 07/06/17 01:28 07/06/17 01:28 Lab Results 07/05/17 07/05/17 07/05/17 13:03 14:03 18:31 WBC Hgb Hct Plt Count APTT 42.0 H 55.3 H Sodium Potassium Chloride Carbon Dioxide BUN Creatinine Glucose Calcium Troponin I 0.00 07/05/17 07/06/17 07/06/17 21:19 01:28 01:28 WBC 11.3 H Hgb 10.2 L Hct 31.6 L Plt Count 680 H APTT Sodium 135 L Potassium 4.9 H Chloride 104 Carbon Dioxide 21 BUN 9 Creatinine 0.80 Glucose 100 H Calcium 9.1 Troponin I 0.00 07/06/17 01:28 WBC Hgb Hct Plt Count APTT 55.7 H Sodium Potassium Chloride Carbon Dioxide BUN Creatinine Glucose Calcium Troponin I Lower Extremity CT 07/04/17 15:04 IMPRESSION: 1. Diffuse subcutaneous edema which is nonspecific. Recommend clinical correlation for cellulitis. No organized fluid collection identified. Incidentally, at least moderate subcutaneous edema is noted throughout the partially visualized contralateral left lower extremity. 2. Postsurgical changes of the calcaneus on the right with no evidence for hardware failure. 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 3. Ununited fracture of the distal aspect of the proximal 2nd phalanx. 4. No acute osseous abnormality and no evidence for osteomyelitis. 5. Severe osteopenia. D/ / Marques Ariza MD / Marques Airza MD Interpreting Provider: Marques Ariza MD - Imaging and Cardiology Echo: report reviewed ( RAVEN 02/23/2017: LVEF 55%. Normal LV, RV size and function. Mild diastolic dysfunction. No evidence of pulmonary hypertension. No significant valvular dysfunction.) - EKG Interpretation EKG results cardiology: personally reviewed (NSR with no acute ST changes) Consult Discharge Plan - Plan Referrals: Juan Green MD [Partnered Physician] - Anjel Mac DO [Primary Care Provider] - Oscar Kauffman MD [Partnered Physician] - 07/23/17 2:00 pm Sanjiv Toro DO [Resident] - 07/12/17 3:00 pm
[2017-07-06] MEDS: Nicotine 21 MG PATCH.TD24 TD SCH (10:13)
[2017-07-06] MEDS: Bisacodyl 10 MG RECTAL SUPPOSITORY RC SCH (11:09)
[2017-07-06] MEDS: Furosemide 20 MG TABLET PO SCH (11:09)
--- NOTE | 2017-07-06 12:42 | Internal Med Progress Note ---
Date of Encounter: 07/06/17 Time of Encounter: 11:30 - Assessment and plan (1) Ischemia of right lower extremity Current Visit: Yes Status: Acute Assessment and plan: Continue IV heparin. Plan for revascularization per vascular surgery recommendations. Continue Pletal (2) Cellulitis Current Visit: Yes Status: Acute Assessment and plan: With underlying ischemia. Continue IV antibiotics. Qualifiers: Site of cellulitis: extremity Site of cellulitis of extremity: lower extremity Laterality: right Qualified Code(s): L03.115 - Cellulitis of right lower limb (3) Peripheral artery disease Current Visit: Yes Status: Chronic Assessment and plan: Management as above (4) COPD (chronic obstructive pulmonary disease) Current Visit: Yes Status: Chronic Assessment and plan: Not in acute exacerbation. Continue bronchodilators as Qualifiers: COPD type: unspecified COPD Qualified Code(s): J44.9 - Chronic obstructive pulmonary disease, unspecified (5) HTN (hypertension) Current Visit: Yes Status: Chronic Assessment and plan: Blood pressure remains persistently elevated. Start amlodipine Qualifiers: Hypertension type: essential hypertension Qualified Code(s): I10 - Essential (primary) hypertension (6) Paroxysmal atrial fibrillation Current Visit: Yes Status: Chronic Assessment and plan: rate controlled. Currently on IV heparin for anticoagulation (7) Pulmonary embolism Current Visit: Yes Status: Chronic Assessment and plan: On anticoagulation Qualifiers: Pulmonary embolism type: other Chronicity: acute Qualified Code(s): I26.99 - Other pulmonary embolism without acute cor pulmonale (8) Anemia Current Visit: Yes Status: Chronic Assessment and plan: Patient has low folic acid levels. We will start patient on supplements. Hemoglobin levels remained stable. Qualifiers: Anemia type: folate deficiency Folate deficiency anemia type: other folate deficiency Qualified Code(s): D52.8 - Other folate deficiency anemias (9) Hyperkalemia Current Visit: Yes Status: Acute Assessment and plan: Potassium 4.9. Stable - Subjective Interval history: Patient complains of pain in the right foot toes. Denies any fever or chills. Underwent cardiac stress test earlier this morning. Doing well since then. Patient may have surgery later today depending on cardiac stress test results. - Constitutional Vitals: Temp Pulse Resp BP Pulse Ox 98.5 F 87 16 139/86 95 07/06/17 10:55 07/06/17 10:55 07/06/17 10:55 07/06/17 10:55 07/06/17 10:55 General appearance: Present: cooperative, mild distress, A&O X 3, answers questions appropriately - Neck Neck exam general surgery: Present: supple, trachea midline. Absent: lymphadenopathy - Respiratory Respiratory exam: Present: CTAB. Absent: accessory muscle use, rales, rhonchi, wheezes - Cardiovascular Cardiovascular exam: Present: RRR, +S1, +S2. Absent: diastolic murmur, gallop, rubs, systolic murmur - GI/Abdominal GI/Abdominal exam: Present: normal bowel sounds, soft, no peritoneal signs. Absent: distended, tenderness - Extremities Exam Extremities exam: Present: warm, radial pulses palpable and symmetrical. Absent : calf tenderness, cyanotic, pedal edema Additional comments: Erythromycin right foot improving. The toes however remained discolored with blisters - Neurological Exam Neurological exam: Present: alert, oriented X3, no focal deficits. Absent: facial droop, speech deficit Internal Medicine: Result - Labs CBC & Chem 7: 07/06/17 01:28 07/06/17 01:28 Labs: Short CBC 07/06/17 Range/Units 01:28 WBC 11.3 H (4.3-11.1) K/mcL Hgb 10.2 L (12.9-16.9) g/dL Hct 31.6 L (37.5-50.1) % Plt Count 680 H (140-400) K/mcL Neutrophils # 6.6 (1.6-8.9) K/mcL BMP 07/06/17 01:28 Sodium 135 L Potassium 4.9 H Chloride 104 Carbon Dioxide 21 BUN 9 Creatinine 0.80 Glucose 100 H Calcium 9.1 Cardiac Enzymes 07/05/17 07/05/17 Range/Units 14:03 21:19 Troponin I 0.00 0.00 (0-0.03) ng/mL - ABG Interpretation ABG results: PT/INR, D-dimer PT 12.3 Seconds (9.4-12.1) H 07/04/17 20:22 - VTE Reasons for not Prescribing Prophylaxis: Not indicated-Anticoagulated or INR therapeutic Consult Discharge Plan - Plan Referrals: Juan Green MD [Partnered Physician] - Anjel Mac DO [Primary Care Provider] - Oscar Kauffman MD [Partnered Physician] - 07/23/17 2:00 pm Sanjiv Toro DO [Resident] - 07/12/17 3:00 pm
[2017-07-06] MEDS: 0.9 % Sodium Chloride 1,000 ML IVC SCH (14:34)
--- NOTE | 2017-07-06 15:01 | Anesthesia Evaluation PreOp ---
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, diminished hearing left ear) Other Medical History: GERD Anesthesia History: No Prior Anesthetic Complications, Past Anesthesia (Right Fem-pop) Alcohol Use: none (quit 6 weeks ago, H/O heavy use {1/5 whiskey QD}) Drug use: none Medications and Allergies Apixaban [Eliquis] 5 mg PO BID 07/04/17 [History] Bisacodyl [Dulcolax] 10 mg RC DAILY PRN 07/04/17 [History] Cilostazol [Pletal] 100 mg PO BID 07/04/17 [History] LORazepam [Ativan] 1 mg PO Q6HR PRN 07/04/17 [History] OxyCODONE/APAP 5/325 [Percocet 5/325 MG] 1 each PO Q4HR PRN 07/04/17 [History] Oxycodone HCl/Acetaminophen [Percocet 5-325 mg Tablet] 2 tab PO Q4HR PRN [History] Potassium Chloride [K-Tab ER] 20 meq PO DAILY 07/04/17 [History] traZODone [TraZODone] 50 mg PO HS PRN 07/04/17 [History] Diltiazem CD (24hr) [Cardizem CD] 300 mg PO DAILY 07/05/17 [History] Gabapentin [Neurontin] 300 mg PO BID 07/05/17 [History] Gabapentin [Neurontin] 600 mg PO HS 07/05/17 [History] Magnesium Oxide [Mag-Ox] 400 mg PO DAILY 07/05/17 [History] Nicotine Patch [Nicoderm] 14 mg TD DAILY 07/05/17 [History] Ondansetron ODT [Zofran ODT] 4 mg PO Q6H PRN 07/05/17 [History] Pantoprazole Sodium [Protonix] 40 mg PO BID 07/05/17 [History] Torsemide [Demadex] 20 mg PO DAILY 07/05/17 [History] Vitamin B Complex [B Complex] 1 each PO QAM 07/05/17 [History] 3 Allergy/AdvReac Type Severity Reaction Status Date / Time codeine AdvReac See Verified 07/05/17 11:38 Comments furosemide [From Lasix] AdvReac Vomiting Verified 07/04/17 14:13 - Meds/Allergy Pre-op Review Medications Reviewed: Yes Allergies Reviewed: Yes Beta Blockers on Current Med List: Yes Anesthesia Results - Labs 07/06/17 01:28 07/06/17 01:28 Echocardiogram Name: Anders Porter Date of Study: 02/23/2017 Impressions: LVEF 55%. Normal LV chamber size, wall thickness and function. Mild left ventricular diastolic dysfunction. Normal right ventricular structure and function. No evidence of pulmonary hypertension. No significant valvular dysfunction. RAVEN 02/23/2017: LVEF 55%. Normal LV, RV size and function. Mild diastolic dysfunction. No evidence of pulmonary hypertension. No significant valvular dysfunction. Stress test perfusion imaging negative for ischemia. EF 51% Pharmacologic stress ECG is negative for ischemia at level of heart rate achieved. - Imaging EKG: image reviewed (SR) Anesthesia Exam O2 Sat Height 1.83 m Weight 80.286 kg O2 Sat by Pulse Oximetry 95 O2 Sat by Pulse Oximetry 95 O2 Sat by Pulse Oximetry 96 O2 Sat by Pulse Oximetry 92 O2 Sat by Pulse Oximetry 94 O2 Sat by Pulse Oximetry 96 Vital Signs Temp Pulse Resp BP Pulse Ox 97.8 F 100 18 121/78 91 07/04/17 14:10 07/04/17 14:10 07/04/17 14:10 07/04/17 14:10 07/04/17 14:10 Vital Signs/O2 Sat, Most Current Temp Pulse Resp BP Pulse Ox 98.5 F 87 16 139/86 95 07/06/17 10:55 07/06/17 10:55 07/06/17 10:55 07/06/17 10:55 07/06/17 10:55 Anesthesia Assess/Plan ASA Score: 3 Modified Amara Scale for Level of Consciousness: Cooperative, oriented, and tranquil Anesthetic Plan: General Autologous Blood: Yes Monitoring Plan: Standard Monitors Recovery Plan: PACU
[2017-07-06] MEDS ORDERED: Acetaminophen IV 1,000 MG/100 ML INFUS..BTL ONE (15:23)
[2017-07-06] MEDS ORDERED: *HR* Propofol 200 MG/20 ML VIAL IVP ONE (15:31)
[2017-07-06] MEDS ORDERED: *HR* Midazolam HCl 2 MG/2 ML VIAL ONE (15:31)
[2017-07-06] MEDS ORDERED: *HR* FentaNYL (PF) 100 MCG/2 ML VIAL ONE ×2 (15:31→18:44)
[2017-07-06] MEDS ORDERED: Ketamine *HR* 500 MG/10 ML MDV ONE (15:32)
[2017-07-06] MEDS ORDERED: Heparin 1,000 UNITS/500 mL NS 0 ML ONE (15:33)
[2017-07-06] MEDS ORDERED: Lidocaine -MPF 4% 5 ML AMPUL ONE (15:37)
[2017-07-06] MEDS ORDERED: Lidocaine -MPF 2% 2 ML VIAL ONE ×2 (15:37→15:42)
[2017-07-06] MEDS ORDERED: *HR* Rocuronium Bromide 50 MG/5 ML VIAL ONE ×2 (15:37→17:22)
[2017-07-06] MEDS ORDERED: Heparin 1,000 UNITS/500 mL NS 500 ML ONE ×2 (15:43→16:40)
[2017-07-06] MEDS: Heparin 25,000 UNIT/500 ML D5W 25,000 UNIT/500 ML MLS IVC SCH (15:50)
[2017-07-06] MEDS ORDERED: *HR* Phenylephrine 10 MG/ML VIAL ONE (17:03)
[2017-07-06] MEDS ORDERED: Esmolol 100 MG/10 ML VIAL IVP ONE (17:15)
[2017-07-06] MEDS ORDERED: Ondansetron 4 MG/2 ML VIAL ONE (17:22)
[2017-07-06] MEDS ORDERED: Dexamethasone 4 MG/ML VIAL ONE (17:22)
[2017-07-06] MEDS ORDERED: *HR* Magnesium Sulfate 1 GM/2 ML VIAL ONE (17:24)
[2017-07-06] MEDS ORDERED: *HR* Labetalol 20 MG/4 ML SYRINGE IVP PRN ×2 (17:44→21:01)
[2017-07-06] MEDS ORDERED: *HR* Promethazine 25 MG/ML VIAL IVP PRN (17:44)
[2017-07-06] MEDS ORDERED: *HR* HYDROmorphone (PF) 1 MG/ML SYRINGE IVP PRN (17:44)
--- NOTE | 2017-07-06 17:47 | Anesthesia Procedures ---
Date of Encounter: 07/06/17 Time of Encounter: 16:30 Procedures: Anesthesia - Arterial Line Consent obtained: written consent Time out performed: Yes Sedation: Versed (mg): 2 Sedation: Fentanyl (mcg): 100 Supplemental Oxygen via Nasal Cannula (L/min): 2 Local Anesthetic: Lidocaine 1% Amount of Anesthetic used (mls): 0.5 Size (Gauge): 20 Length (inches): 1 3/4 Technique Used: sterile prep, guide wire technique, direct puncture technique Post-Procedure: line taped into place, dry sterile dressing placed Patient tolerated procedure: well, no complications Complications: none Site: Radial R Vitals: BP 170/90, HR 91, SpO2 96%, RR 16
[2017-07-06] MEDS ORDERED: *HR* Heparin 5,000 UNIT/ML VIAL ONE (18:13)
[2017-07-06] MEDS ORDERED: Neostigmine Methylsulfate 3 MG/3 ML SYRINGE ONE (18:59)
[2017-07-06] MEDS ORDERED: *HR* Morphine 10 MG/ML VIAL ONE (19:19)
--- NOTE | 2017-07-06 19:33 | Operative Note ---
Date of procedure: 07/06/17 Pre-op diagnosis: Ischemic right foot Post-op diagnosis: same Procedure: Right femoral-popliteal bypass with PTFE Implants: 7mm Distalflo Anesthesia: [place] Surgeon: Juan Green Estimated blood loss (cc): 100 Condition: stable Disposition: PACU Procedure in Detail: After informed consent the patient was taken to the major operating suite placed in the supine position and given adequate general anesthetic. Right leg is prepped and draped in sterile fashion utilizing Betadine solution and standard draping techniques. Timeout was taken patient was identified. The lateralizing tiffanie is identified. I made an oblique incision right groin and dissected down common femoral artery. The common femoral artery profunda femoris and superficial femoral artery were surrounded with vessel loops. The common femoral artery was amenable to bypass. The proximal saphenous vein was dissected and was adequate for bypass in the proximal thigh. The saphenous vein in the lower leg was actually visible prior to surgery. This was marked. I also made an oblique incision overlying the distal popliteal fossa. I reflected the gastrocnemius posteriorly and divided the soleus off the interosseous membrane the popliteal artery from the anterior tibial artery takeoff 3 cm proximal was completely dissected and surrounded with vessel loops. The saphenous vein in the midcalf was adequate size and amenable to bypass. I then undertook proximal and distal dissection along the saphenous vein. About 10 cm down in the thigh from the saphenofemoral junction the saphenous vein bifurcated. The posterior bifurcation went to the posterior thigh the anterior bifurcation was the larger of the 2 went to the knee area at the level of the knee there were a series of branches the saphenous vein in the fish-geniculate area was inadequate for bypass. I looked at the segments to decide if I could divide in reverse the saphenous vein rather than using an in situ technique. I simply had inadequate length of adequate vein area I decided to do right femoral-popliteal bypass with 7 mm PTFE distal flow graft. A [employer] tunneler was brought on the field and tunneled proximal to distal. The graft was then tunneled from distal to proximal. The patient was given 5000 units of intravenous heparin. I opened the popliteal artery. There was no plaque. And the artery was amenable to bypass. Using 2.8X magnification, I created a distal anastomosis using 5-0 Prolene. This gave an excellent technical result. The graft was adjusted for length. I then clamped the common femoral artery and tightened the vessel loops on the profunda femoris and superficial femoral artery. I created a cobra smiley and the proximal graft. I perform the proximal anastomosis under 2.8X magnification using 5-0 Prolene. Prior to completion all vessels were back bled and forward flushed. I opened the common femoral first to the superficial femoral artery and the profunda and finally to the graft. Doppler evaluation demonstrated tremendous augmentation of flow in the popliteal artery. This gave an excellent technical result. There was a small bleeding area on the smiley of the graft distally. This was controlled with one stitch of pledgeted suture material. Hemostasis was excellent. The wounds were closed in multiple layers using interrupted Vicryl. Skin was closed with skin clips. He tolerated the procedure well.
--- NOTE | 2017-07-06 20:38 | Anesthesia Evaluation Post Op ---
Date of Encounter: 07/06/17 Time of Encounter: 20:37 - Vital Signs Vital Signs: Vital Signs/O2 Sat, Most Current Temp Pulse Resp BP Pulse Ox 98.0 F 83 18 138/98 93 07/06/17 20:19 07/06/17 20:29 07/06/17 20:29 07/06/17 20:35 07/06/17 20:29 - Lungs Lungs: Clear Ascult./Percussion - Airway Airway: Non-obstructed - Cardiovascular Regular Rate - Mental Status Mental Status: Alert & Oriented, Answers Appropriately - Pain Pain Scale: 4 Pain Scale used: Numeric (1 - 10) - Nausea Vomiting Nausea Vomiting: Not Present - Hydration Hydration: Ice chips, Lora catheter - Discharge PostOp Status: Transfer Patient to floor
[2017-07-06] MEDS ORDERED: Ipratropium/Albuterol Neb 3 ML IH PRN (21:01)
[2017-07-06] MEDS ORDERED: 0.9 % Sodium Chloride 1,000 ML IVC SCH (21:01)
[2017-07-06] MEDS ORDERED: Naloxone 0.4 MG/ML INJ IVP PRN (21:01)
[2017-07-06] MEDS ORDERED: Vancomycin 1,250 MG in D5% in Water 250 ML IVPB SCH (22:00)
[2017-07-06] MEDS: Temazepam 15 MG CAPSULE PO PRN (23:11)
[2017-07-07] MEDS: *HR* HYDROmorphone (PF) 1 MG/ML SYRINGE IVP PRN ×7 (01:18→21:55)
[2017-07-07] MEDS: *HR* LORazepam 1 MG TABLET PO PRN ×2 (03:50→17:51)
[2017-07-07] MEDS: Piperacillin/Tazobactam 3.375 GM in D5% in Water (Mini-Bag+) 100 ML IVPB SCH ×2 (03:51→10:52)
[2017-07-07] MEDS: Famotidine 20 MG/2 ML VIAL IVP SCH ×2 (06:14→17:51)
[2017-07-07 06:37] LABS: Basophils % 0.3 %; Hematocrit 32.1 % (37.5-50.1); Hemoglobin 10.5 g/dL (12.9-16.9); Immature Granulocytes % 1.4 % (0-4); Lymphocytes # 0.9 K/mcL (0.6-4.6); Lymphocytes % 7.1 %; Mean Corpuscular HGB Conc 32.7 g/dL (31.6-35.5); Mean Corpuscular Hemoglobin 32.6 pg (28.0-33.3); Mean Corpuscular Volume 99.7 fL (83.0-100.0); Mean Platelet Volume 8.8 fL (9.4-12.4); Monocytes # 0.7 K/mcL (0.0-1.3); Monocytes % 5.5 %; Neutrophils # 10.7 K/mcL (1.6-8.9); Platelet Count 553 K/mcL (140-400); Red Blood Count 3.22 M/mcL (4.19-5.50); Red Cell Distribution Width 17.2 % (11.5-14.5); Segmented Neutrophils % 85.7 %
[2017-07-07 06:49] LABS: BUN/Creatinine Ratio 12 (6-26); Blood Urea Nitrogen 8 mg/dL (8-26); Calcium 9.1 mg/dL (8.6-10.8); Carbon Dioxide 23 mEq/L (19-29); Chloride 102 mEq/L (98-109); Glucose 154 mg/dL (70-99); Osmolality,Calculated 275 (280-300); Potassium 4.8 mEq/L (3.5-4.5); Sodium 132 mEq/L (136-145); eGFR For African Americans > 60 (> 60); eGFR For Non-African Americans > 60 (> 60)
[2017-07-07] MEDS ORDERED: Aminoglycoside Consult 1 EACH MC ONE (07:33)
[2017-07-07] MEDS: amLODIPine 5 MG TABLET PO SCH (08:11)
[2017-07-07] MEDS: Folic Acid 1 MG TABLET PO SCH (08:11)
[2017-07-07] MEDS: Aspirin Enteric Coated 81 MG Tablet PO SCH (08:11)
[2017-07-07] MEDS: Nicotine 21 MG PATCH.TD24 TD SCH (08:12)
[2017-07-07] MEDS: Bisacodyl 10 MG RECTAL SUPPOSITORY RC SCH (08:12)
[2017-07-07] MEDS ORDERED: amLODIPine 5 MG TABLET PO SCH (09:00)
[2017-07-07] MEDS ORDERED: Folic Acid 1 MG TABLET PO SCH (09:00)
[2017-07-07] MEDS ORDERED: Furosemide 20 MG TABLET PO SCH (09:00)
[2017-07-07] MEDS: Vancomycin 1,250 MG in D5% in Water 250 ML IVPB SCH (10:51)
[2017-07-07] MEDS: Ondansetron 4 MG/2 ML VIAL IVP PRN ×2 (10:51→22:56)
--- NOTE | 2017-07-07 11:36 | Vascular/[facility] Progress Note ---
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 His incisions are healing. His pedal signals are polyphasic. His compartments are soft. Discontinue miranda today. PT consult today with patient out of bed today. May restart Eliquis today. Patient will be acceptable for discahrge from a vascular standpoint if he is able to ambulate at his baseline and his pain is controlled. - Subjective Interval history: The patient is comfortable. He reports that his foot feels better today. He denies chest pain or shortness of breath. - Physical Examination General: Present: Conversant Cardiac: Present: Reg Rate and Rhythm Lungs: Present: Normal Breath Sounds Neuro: Present: Alert and responsive, Motor nerves grossly intact, Sensory nerves grossly intact Vascular: Present: Normal capillary refill, Pulse, normal (right DP signal is polyphasic), Surgical incisions (Clean, dry and intact without erythema or drainage). Absent: Cyanosis Abdomen: Present: Soft - VTE Reasons for not Prescribing Prophylaxis: Not indicated-Anticoagulated or INR therapeutic Documentation of Mechanical Device: Intermittent pneumatic compression device Results 07/07/17 06:05 07/07/17 06:05 Lab Results, Last 24 hours 07/06/17 07/07/17 07/07/17 16:08 06:05 06:05 WBC 12.5 H Hgb 10.5 L Hct 32.1 L Plt Count 553 H APTT 50.6 H Sodium 132 L Potassium 4.8 H Chloride 102 Carbon Dioxide 23 BUN 8 Creatinine 0.69 L Glucose 154 H Calcium 9.1 Consult Discharge Plan - Plan Referrals: Juan Green MD [Partnered Physician] - Anjel Mac DO [Primary Care Provider] - Oscar Kauffman MD [Partnered Physician] - 07/23/17 2:00 pm Sanjiv Toro DO [Resident] - 07/12/17 3:00 pm
[2017-07-07] MEDS ORDERED: *HR* HYDROmorphone (PF) 1 MG/ML SYRINGE IVP SCH (12:00)
--- NOTE | 2017-07-07 14:22 | Internal Med Progress Note ---
Date of Encounter: 07/07/17 Time of Encounter: 11:15 - Assessment and plan (1) Ischemia of right lower extremity Current Visit: Yes Status: Acute Assessment and plan: Status post right femoropopliteal bypass. Postop day 1. Doing well currently. Has been cleared for discharge by vascular surgery pending physical therapy evaluation. We will resume Eliquis. Continue aspirin and Plavix. Pain control. (2) Cellulitis Current Visit: Yes Status: Acute Assessment and plan: On Zosyn and vancomycin. We will de-escalate to oral antibiotics. Qualifiers: Site of cellulitis: extremity Site of cellulitis of extremity: lower extremity Laterality: right Qualified Code(s): L03.115 - Cellulitis of right lower limb (3) Peripheral artery disease Current Visit: Yes Status: Chronic Assessment and plan: Right femoropopliteal bypass completed. (4) COPD (chronic obstructive pulmonary disease) Current Visit: Yes Status: Chronic Assessment and plan: Not in acute exacerbation. Continue bronchodilators Qualifiers: COPD type: unspecified COPD Qualified Code(s): J44.9 - Chronic obstructive pulmonary disease, unspecified (5) HTN (hypertension) Current Visit: Yes Status: Chronic Assessment and plan: Blood pressure has improved. Continue amlodipine. Qualifiers: Hypertension type: essential hypertension Qualified Code(s): I10 - Essential (primary) hypertension (6) Paroxysmal atrial fibrillation Current Visit: Yes Status: Chronic Assessment and plan: Rate controlled. (7) Pulmonary embolism Current Visit: Yes Status: Chronic Assessment and plan: Started back on Eliquis Qualifiers: Pulmonary embolism type: other Chronicity: acute Qualified Code(s): I26.99 - Other pulmonary embolism without acute cor pulmonale (8) Anemia Current Visit: Yes Status: Chronic Assessment and plan: On folate replacement therapy. Hemoglobin levels remain stable Qualifiers: Anemia type: folate deficiency Folate deficiency anemia type: other folate deficiency Qualified Code(s): D52.8 - Other folate deficiency anemias (9) Hyperkalemia Current Visit: Yes Status: Acute Assessment and plan: Potassium 4.8. Stable - Subjective Interval history: Patient underwent right-sided femoropopliteal bypass yesterday. Doing well postprocedure. Pain is better controlled. No other acute issues overnight. Tolerating diet well. - Constitutional Vitals: Temp Pulse Resp BP Pulse Ox 97.7 F 87 16 109/73 87 07/07/17 12:32 07/07/17 12:32 07/07/17 12:32 07/07/17 12:32 07/07/17 12:32 General appearance: Present: cooperative, mild distress, A&O X 3, answers questions appropriately - Neck Neck exam general surgery: Present: supple, trachea midline. Absent: lymphadenopathy - Respiratory Respiratory exam: Present: CTAB. Absent: accessory muscle use, rales, rhonchi, wheezes - Cardiovascular Cardiovascular exam: Present: RRR, +S1, +S2. Absent: diastolic murmur, gallop, rubs, systolic murmur - GI/Abdominal GI/Abdominal exam: Present: normal bowel sounds, soft, no peritoneal signs. Absent: distended, tenderness - Extremities Exam Extremities exam: Present: warm, radial pulses palpable and symmetrical. Absent : calf tenderness, cyanotic, pedal edema Additional comments: Improved pedal pulses and capillary refill involving the right foot. Right flank surgical incisions are clean. No discharge or bleeding. Right foot does appear to be better perfusing now. Fifth toe on the right remains slightly discolored Internal Medicine: Result - Labs CBC & Chem 7: 07/07/17 06:05 07/07/17 06:05 Labs: Short CBC 07/07/17 Range/Units 06:05 WBC 12.5 H (4.3-11.1) K/mcL Hgb 10.5 L (12.9-16.9) g/dL Hct 32.1 L (37.5-50.1) % Plt Count 553 H (140-400) K/mcL Neutrophils # 10.7 H (1.6-8.9) K/mcL BMP 07/07/17 06:05 Sodium 132 L Potassium 4.8 H Chloride 102 Carbon Dioxide 23 BUN 8 Creatinine 0.69 L Glucose 154 H Calcium 9.1 - ABG Interpretation ABG results: PT/INR, D-dimer PT 12.3 Seconds (9.4-12.1) H 07/04/17 20:22 - VTE Reasons for not Prescribing Prophylaxis: Not indicated-Anticoagulated or INR therapeutic Documentation of Mechanical Device: Intermittent pneumatic compression device Consult Discharge Plan - Plan Referrals: Juan Green MD [Partnered Physician] - Anjel Mac DO [Primary Care Provider] - Oscar Kauffman MD [Partnered Physician] - 07/23/17 2:00 pm Sanjiv Toro DO [Resident] - 07/12/17 3:00 pm
[2017-07-07] MEDS: Mag Hydrox/Al Hydrox/Simeth 30 ML UDC PO PRN (14:32)
[2017-07-07] MEDS: *HR* OxyCODONE/APAP 10/325 TABLET PO PRN ×2 (17:15→22:56)
[2017-07-07] MEDS ORDERED: Gabapentin 300 MG CAPSULE PO SCH (21:00)
[2017-07-07] MEDS: traZODone 50 MG TABLET PO SCH (21:55)
[2017-07-07] MEDS: Gabapentin 300 MG CAPSULE PO SCH (21:55)
[2017-07-07] MEDS: APIXABAN 5 MG TABLET PO SCH (21:56)
[2017-07-07] MEDS: Temazepam 15 MG CAPSULE PO PRN (22:56)
[2017-07-08] MEDS: *HR* LORazepam 1 MG TABLET PO PRN ×3 (02:31→21:49)
[2017-07-08] MEDS: *HR* HYDROmorphone (PF) 1 MG/ML SYRINGE IVP PRN ×5 (02:31→23:41)
[2017-07-08] MEDS: Famotidine 20 MG/2 ML VIAL IVP SCH ×2 (07:20→16:43)
[2017-07-08] MEDS: *HR* OxyCODONE/APAP 10/325 TABLET PO PRN ×4 (07:20→21:49)
[2017-07-08] MEDS: Diltiazem CD (24hr) 300 MG CAPSULE PO SCH (09:18)
[2017-07-08] MEDS: Magnesium Oxide 400 MG TABLET PO SCH (09:18)
[2017-07-08] MEDS: Folic Acid 1 MG TABLET PO SCH (09:19)
[2017-07-08] MEDS: Aspirin Enteric Coated 81 MG Tablet PO SCH (09:19)
[2017-07-08] MEDS: APIXABAN 5 MG TABLET PO SCH ×2 (09:19→21:49)
[2017-07-08] MEDS: amLODIPine 5 MG TABLET PO SCH (09:19)
[2017-07-08] MEDS: Torsemide 20 MG TABLET PO SCH (09:19)
[2017-07-08] MEDS: Nicotine 21 MG PATCH.TD24 TD SCH (09:20)
[2017-07-08] MEDS: Bisacodyl 10 MG RECTAL SUPPOSITORY RC SCH (09:20)
[2017-07-08] MEDS: Gabapentin 300 MG CAPSULE PO SCH ×3 (09:26→21:49)
--- NOTE | 2017-07-08 14:05 | Internal Med Progress Note ---
Date of Encounter: 07/08/17 Time of Encounter: 14:03 - Assessment and plan (1) Ischemia of right lower extremity Current Visit: Yes Status: Acute Assessment and plan: Status post right femoropopliteal bypass. Doing well postprocedure. Awaiting evaluation by physical therapy. Has been cleared for discharge by surgery pending physical therapy evaluation. Continue aspirin and Plavix. (2) Cellulitis Current Visit: Yes Status: Acute Assessment and plan: Resolved. Complete antibiotic course with Augmentin. Qualifiers: Site of cellulitis: extremity Site of cellulitis of extremity: lower extremity Laterality: right Qualified Code(s): L03.115 - Cellulitis of right lower limb (3) Peripheral artery disease Current Visit: Yes Status: Chronic Assessment and plan: Status post right femoropopliteal bypass. Continue aspirin and Plavix (4) COPD (chronic obstructive pulmonary disease) Current Visit: Yes Status: Chronic Assessment and plan: No acute exacerbation. Continue bronchodilators as needed Qualifiers: COPD type: unspecified COPD Qualified Code(s): J44.9 - Chronic obstructive pulmonary disease, unspecified (5) HTN (hypertension) Current Visit: Yes Status: Chronic Assessment and plan: Blood pressure remains well controlled. Qualifiers: Hypertension type: essential hypertension Qualified Code(s): I10 - Essential (primary) hypertension (6) Paroxysmal atrial fibrillation Current Visit: Yes Status: Chronic Assessment and plan: Rate controlled ventricular rhythm. (7) Pulmonary embolism Current Visit: Yes Status: Chronic Assessment and plan: Continue Eliquis Qualifiers: Pulmonary embolism type: other Chronicity: acute Qualified Code(s): I26.99 - Other pulmonary embolism without acute cor pulmonale (8) Anemia Current Visit: Yes Status: Chronic Assessment and plan: Chronic and stable. Qualifiers: Anemia type: folate deficiency Folate deficiency anemia type: other folate deficiency Qualified Code(s): D52.8 - Other folate deficiency anemias (9) Hyperkalemia Current Visit: Yes Status: Acute Assessment and plan: Stable - Subjective Interval history: Doing well. Was able to ambulate a little bit with the help of a cane. Continues to have some pain in his right foot. Although it is improving. Denies any fever or chills. No chest pain or shortness of breath. No other acute issues overnight. - Constitutional Vitals: Temp Pulse Resp BP Pulse Ox 98.6 F 91 22 107/82 97 07/08/17 11:55 07/08/17 11:55 07/08/17 11:55 07/08/17 11:55 07/08/17 11:55 General appearance: Present: cooperative, mild distress, A&O X 3, answers questions appropriately - Respiratory Respiratory exam: Present: CTAB. Absent: accessory muscle use, rales, rhonchi, wheezes - Cardiovascular Cardiovascular exam: Present: RRR, +S1, +S2. Absent: diastolic murmur, gallop, rubs, systolic murmur - GI/Abdominal GI/Abdominal exam: Present: normal bowel sounds, soft, no peritoneal signs. Absent: distended, tenderness - Extremities Exam Extremities exam: Present: warm, radial pulses palpable and symmetrical. Absent : calf tenderness, cyanotic, pedal edema Additional comments: Good pedal pulses and right foot. Erythema improving. Fifth toe plantar surface remain cyanotic. - Neurological Exam Neurological exam: Present: alert, oriented X3, no focal deficits. Absent: facial droop, speech deficit Internal Medicine: Result - Labs CBC & Chem 7: 07/07/17 06:05 07/07/17 06:05 - ABG Interpretation ABG results: PT/INR, D-dimer PT 12.3 Seconds (9.4-12.1) H 07/04/17 20:22 - VTE Reasons for not Prescribing Prophylaxis: Not indicated-Anticoagulated or INR therapeutic Documentation of Mechanical Device: Intermittent pneumatic compression device Consult Discharge Plan - Plan Referrals: Juan Green MD [Partnered Physician] - Anjel Mac DO [Primary Care Provider] - Oscar Kauffman MD [Partnered Physician] - 07/23/17 2:00 pm Sanjiv Toro DO [Resident] - 07/12/17 3:00 pm
[2017-07-08] MEDS: Mag Hydrox/Al Hydrox/Simeth 30 ML UDC PO PRN (14:18)
--- NOTE | 2017-07-08 14:57 | Vascular/[facility] Progress Note ---
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 His incisions are healing. His pedal signals are polyphasic. His compartments are soft. He will continue with progressive ambulation. He reports adequate pain control. - Subjective Interval history: The patient continues to feel better. He reports that he has been out of bed to chair. He has not seen PT yet. He denies chest pain or shortness of breath. Vital Signs, Last 4 Hours Temp Pulse Resp BP Pulse Ox 07/08/17 11:55 98.6 F 91 22 107/82 97 - Physical Examination General: Present: Conversant, No Apparent Distress Cardiac: Present: Reg Rate and Rhythm Lungs: Present: Normal Breath Sounds Neuro: Present: No focal deficits noted Vascular: Present: Normal capillary refill, Pulse, normal (right pedal pulses palpable), Surgical incisions (incisions clean, dry and intact). Absent: Cyanosis, Edema Abdomen: Present: Soft - VTE Reasons for not Prescribing Prophylaxis: Not indicated-Anticoagulated or INR therapeutic Documentation of Mechanical Device: Intermittent pneumatic compression device Results 07/07/17 06:05 07/07/17 06:05 Consult Discharge Plan - Plan Instructions: Femoropopliteal Bypass (DC) Additional Instructions: 1. Ambulate at least 3 to 5 minutes every hour while you're a week. 2. Report any fevers greater than 100.5, drainage from the surgical site, increase in discomfort at the surgical site or the right foot, worsening discoloration, or a decrease in pulses. 3. Continue aspirin and Plavix; continue your other medications as directed by the medicine doctor. 4. Take your pain medication as prescribed.Take Colace while on narcotics, may hold for loose stool. 5. Continue nicotine patch as directed and refrain from smoking. 6. Follow-up in the office with Dr. Green as directed. Referrals: Juan Green MD [Partnered Physician] - 07/25/17 3:40 pm (For hosp and postoperative follow-up) Oscar Kauffman MD [Partnered Physician] - 07/23/17 2:00 pm Sanjiv Toro DO [Resident] - (PATIENT IS GOING TO [facility], NO PCP APPOINTMENT IS NEEDED) Prescriptions: OxyCODONE/APAP 10/325 [Percocet 10/325 MG] 1 - 2 each PO Q4HR PRN 7 Days #84 tablet PRN Reason: RLE Bypass Surgical Pain Clopidogrel [Plavix] 75 mg PO DAILY 30 Days #30 tablet Docusate [Colace] 100 mg PO BID #60 capsule Nicotine Patch [Nicoderm] 21 mg TD DAILY 30 Days #30 patch.td24
[2017-07-08] MEDS: traZODone 50 MG TABLET PO SCH (21:49)
[2017-07-08] MEDS: Temazepam 15 MG CAPSULE PO PRN (23:41)
[2017-07-09] MEDS: *HR* OxyCODONE/APAP 10/325 TABLET PO PRN ×5 (04:52→21:09)
[2017-07-09] MEDS: Famotidine 20 MG/2 ML VIAL IVP SCH (04:53)
[2017-07-09] MEDS: Diltiazem CD (24hr) 300 MG CAPSULE PO SCH (08:19)
[2017-07-09] MEDS: Aspirin Enteric Coated 81 MG Tablet PO SCH (08:19)
[2017-07-09] MEDS: APIXABAN 5 MG TABLET PO SCH ×2 (08:20→21:09)
[2017-07-09] MEDS: Folic Acid 1 MG TABLET PO SCH (08:20)
[2017-07-09] MEDS: Bisacodyl 10 MG RECTAL SUPPOSITORY RC SCH (08:20)
[2017-07-09] MEDS: Torsemide 20 MG TABLET PO SCH (08:20)
[2017-07-09] MEDS: Magnesium Oxide 400 MG TABLET PO SCH (08:20)
[2017-07-09] MEDS: Gabapentin 300 MG CAPSULE PO SCH ×3 (08:21→21:10)
[2017-07-09] MEDS: *HR* LORazepam 1 MG TABLET PO PRN ×3 (08:22→21:10)
[2017-07-09] MEDS: amLODIPine 5 MG TABLET PO SCH (08:22)
[2017-07-09] MEDS: Nicotine 21 MG PATCH.TD24 TD SCH (08:22)
--- NOTE | 2017-07-09 09:09 | Vascular/[facility]as Progress Note ---
Date of Encounter: 07/09/17 Time of Encounter: 08:55 - Assessment and plan (1) Ischemia of right lower extremity Current Visit: Yes Status: Acute Postoperative day #3 (07/06/2017) Right femoral-popliteal bypass with PTFE (Dr. Green). The surgical incision sites are clean, dry, and intact. There are no signs or symptoms of infection noted. There is a small amount of edema in the upper Mid/medial aspect of the thigh and calf that is consistent with postoperative seroma. Strongly encouraged smoking cessation. Patient emphatically verbalized that he will refrain from smoking at [place]. He requests continuation of the nicotine patch. Strongly encouraged frequent ambulation for short periods of time with adequate pain control. Patient verbalized understanding and adherence. okay to [place] from a surgical perspective as long as patient is ambulating and with DC plans to inpatient rehab. Vascular surgery will sign off at this time. Thank you for allowing us to participate in Mr. Porter' care. The patient is seen in evaluated on morning rounds. His foot is pink and warm. He has a strong posterior tibial pulse and a Doppler dorsalis pedis. At this point his antibiotics can be discontinued. I can follow him as an outpatient. I agree with rehabilitation plans. The plan of care as discussed with the clinical nurse practitioner Juan Green MD FACS Discussion with patient/family: The above assessment and plan was discussed with the patient who verbalized understanding and adherence. - Subjective Interval history: Postoperative day #3 (07/06/2017) Right femoral-popliteal bypass with PTFE (Dr. Green). Patient states discomfort is controlled on current regimen, endorses ambulation with general office assistant but states he does have some associated soreness. He denies increased discomfort at the surgical site or in his right foot. He denies drainage at the surgical site. He denies increase in swelling at the surgical site. He states he would like to go to a rehab facility to gain strength and that the primary doctors have arranged this. He states he has not smoked a cigarette in 26 days and emphatically states that he will refrain from smoking at [place]. Vital Signs, Last 4 Hours Temp Pulse Resp BP 07/09/17 08:00 98.9 F 72 12 103/72 - Physical Examination General: Present: Conversant, No Apparent Distress, Well developed, Well nourished HEENT: Present: Atraumatic, Normocephaly, Trachea midline Neck: Present: Other (Unremarkable) Cardiac: Present: Reg Rate and Rhythm Lungs: Present: Normal Breath Sounds Neuro: Present: Alert and responsive, No focal deficits noted, Cranial nerves grossly intact, Motor nerves grossly intact, Sensory nerves grossly intact Vascular: Present: Other (Left pedal pulses to plus. Right pedal pulses per Doppler with strong amplitude and regular rhythm. The right foot remains discolored.) Abdomen: Present: Soft, Non-tender Skin: Present: No rashes noted on visualized skin, Wound/ulcer(s) (Right foot great toe, 2nd toe, and PT toe with deep purple tissue. Patient states this is improved. Denies discomfort.) Musculoskeletal: Present: No Chest Wall Tenderness - VTE Reasons for not Prescribing Prophylaxis: Not indicated-Anticoagulated or INR therapeutic Documentation of Mechanical Device: Intermittent pneumatic compression device Results 07/07/17 06:05 07/07/17 06:05 Consult Discharge Plan - Plan Instructions: Femoropopliteal Bypass (DC) Additional Instructions: 1. Ambulate at least 3 to 5 minutes every hour while you're a week. 2. Report any fevers greater than 100.5, drainage from the surgical site, increase in discomfort at the surgical site or the right foot, worsening discoloration, or a decrease in pulses. 3. Continue aspirin and Plavix; continue your other medications as directed by the medicine doctor. 4. Take your pain medication as prescribed.Take Colace while on narcotics, may hold for loose stool. 5. Continue nicotine patch as directed and refrain from smoking. 6. Follow-up in the office with Dr. Green as directed. Referrals: Juan Green MD [Partnered Physician] - 07/25/17 3:40 pm (For hosp and postoperative follow-up) Oscar Kauffman MD [Partnered Physician] - 07/23/17 2:00 pm Sanjiv Toro DO [Resident] - (PATIENT IS GOING TO [facility], NO PCP APPOINTMENT IS NEEDED) Prescriptions: OxyCODONE/APAP 10/325 [Percocet 10/325 MG] 1 - 2 each PO Q4HR PRN 7 Days #84 tablet PRN Reason: RLE Bypass Surgical Pain LORazepam [Ativan] 1 mg PO Q6HR PRN #10 tablet PRN Reason: Anxiety Calcium Carbonate [Tums] 1,000 mg PO QID PRN #30 tab.chew PRN Reason: Heartburn Clopidogrel [Plavix] 75 mg PO DAILY 30 Days #30 tablet Docusate [Colace] 100 mg PO BID #60 capsule Folic Acid 1 mg PO DAILY #30 tablet Gabapentin [Neurontin] 600 mg PO HS #20 capsule Gabapentin [Neurontin] 300 mg PO BID #20 capsule Nicotine Patch [Nicoderm] 21 mg TD DAILY 30 Days #30 patch.td24
--- NOTE | 2017-07-09 13:35 | Discharge Summary ---
Date of Encounter: 07/09/17 Time of Encounter: 13:29 - Discharge Diagnosis (1) Ischemia of right lower extremity Priority: Primary Status: Acute (2) Cellulitis Priority: Secondary Status: Acute Qualifiers: Site of cellulitis: extremity Site of cellulitis of extremity: lower extremity Laterality: right Qualified Code(s): L03.115 - Cellulitis of right lower limb (3) Peripheral artery disease Priority: Secondary Status: Chronic (4) COPD (chronic obstructive pulmonary disease) Priority: Secondary Status: Chronic Qualifiers: COPD type: unspecified COPD Qualified Code(s): J44.9 - Chronic obstructive pulmonary disease, unspecified (5) HTN (hypertension) Priority: Secondary Status: Chronic Qualifiers: Hypertension type: essential hypertension Qualified Code(s): I10 - Essential (primary) hypertension (6) Paroxysmal atrial fibrillation Priority: Secondary Status: Chronic (7) Pulmonary embolism Priority: Secondary Status: Chronic Qualifiers: Pulmonary embolism type: other Chronicity: acute Qualified Code(s): I26.99 - Other pulmonary embolism without acute cor pulmonale (8) Anemia Priority: Secondary Status: Chronic Qualifiers: Anemia type: folate deficiency Folate deficiency anemia type: other folate deficiency Qualified Code(s): D52.8 - Other folate deficiency anemias (9) Hyperkalemia Priority: Secondary Status: Acute - Discharge Medications Prescriptions: OxyCODONE/APAP 10/325 [Percocet 10/325 MG] 1 - 2 each PO Q4HR PRN 7 Days #84 tablet PRN Reason: RLE Bypass Surgical Pain LORazepam [Ativan] 1 mg PO Q6HR PRN #10 tablet PRN Reason: Anxiety Calcium Carbonate [Tums] 1,000 mg PO QID PRN #30 tab.chew PRN Reason: Heartburn Clopidogrel [Plavix] 75 mg PO DAILY 30 Days #30 tablet Docusate [Colace] 100 mg PO BID #60 capsule Folic Acid 1 mg PO DAILY #30 tablet Gabapentin [Neurontin] 600 mg PO HS #20 capsule Gabapentin [Neurontin] 300 mg PO BID #20 capsule Nicotine Patch [Nicoderm] 21 mg TD DAILY 30 Days #30 patch.td24 Home Medications: Apixaban [Eliquis] 5 mg PO BID 07/04/17 [History] Bisacodyl [Dulcolax] 10 mg RC DAILY PRN 07/04/17 [History] traZODone [TraZODone] 50 mg PO HS PRN 07/04/17 [History] Diltiazem CD (24hr) [Cardizem CD] 300 mg PO DAILY 07/05/17 [History] Magnesium Oxide [Mag-Ox] 400 mg PO DAILY 07/05/17 [History] Nicotine Patch [Nicoderm] 14 mg TD DAILY 07/05/17 [History] Ondansetron ODT [Zofran ODT] 4 mg PO Q6H PRN 07/05/17 [History] Pantoprazole Sodium [Protonix] 40 mg PO BID 07/05/17 [History] Torsemide [Demadex] 20 mg PO DAILY 07/05/17 [History] Vitamin B Complex [B Complex] 1 each PO QAM 07/05/17 [History] Calcium Carbonate [Tums] 1,000 mg PO QID PRN #30 tab.chew 07/09/17 [Rx] Clopidogrel [Plavix] 75 mg PO DAILY 30 Days #30 tablet 07/09/17 [Rx] Docusate [Colace] 100 mg PO BID #60 capsule 07/09/17 [Rx] Folic Acid 1 mg PO DAILY #30 tablet 07/09/17 [Rx] Gabapentin [Neurontin] 300 mg PO BID #20 capsule 07/09/17 [Rx] Gabapentin [Neurontin] 600 mg PO HS #20 capsule 07/09/17 [Rx] LORazepam [Ativan] 1 mg PO Q6HR PRN #10 tablet 07/09/17 [Rx] Nicotine Patch [Nicoderm] 21 mg TD DAILY 30 Days #30 patch.td24 07/09/17 [Rx] OxyCODONE/APAP 10/325 [Percocet 10/325 MG] 1 - 2 each PO Q4HR PRN 7 Days #84 tablet 07/09/17 [Rx] Allergies/Adverse Reactions: 3 Allergy/AdvReac Type Severity Reaction Status Date / Time codeine AdvReac See Verified 07/05/17 11:38 Comments furosemide [From Lasix] AdvReac Vomiting Verified 07/04/17 14:13 Date of admission: 07/04/17 23:31 Primary care physician: Anjel Mac DO Consults: 07/07/17 11:24 Consult to Occupational Therapy [CONS] Routine Comment: Evaluate, develop and implement POC Reason for Consult: PT resides at [place], post fem pop Consult to Physical Therapy [CONS] Routine Comment: Evaluate, develop and implement POC Reason for Consult: pt resides at [place] post fempop 07/09/17 07:56 Consult to Attending Pathologist [CONS] Routine Reason for SW Consult: post surgery, pt at [place] for rehab. Discharging clinician: Gerardo Issa Anticipated date of discharge: 07/09/17 - Patient Status Disposition: Transfer SNF Condition: Good Functional capacity at discharge: independent ambulation Overall status at discharge: patient is progressing back to baseline - Discharge Instructions Instructions: Femoropopliteal Bypass (DC) Follow Up With: Juan Green MD [Partnered Physician] - 07/25/17 3:40 pm (For hosp and postoperative follow-up) Oscar Kauffman MD [Partnered Physician] - 07/23/17 2:00 pm Sanjiv Toro DO [Resident] - (PATIENT IS GOING TO [facility], NO PCP APPOINTMENT IS NEEDED) Additional Instructions: 1. Ambulate at least 3 to 5 minutes every hour while you're a week. 2. Report any fevers greater than 100.5, drainage from the surgical site, increase in discomfort at the surgical site or the right foot, worsening discoloration, or a decrease in pulses. 3. Continue aspirin and Plavix; continue your other medications as directed by the medicine doctor. 4. Take your pain medication as prescribed.Take Colace while on narcotics, may hold for loose stool. 5. Continue nicotine patch as directed and refrain from smoking. 6. Follow-up in the office with Dr. Green as directed. - Diet and Activity Activity: as per physical therapy Diet: low fat, low cholesterol, low salt diet Hospital course: Mr. Porter is a 57 year old male Tat[place] due to history of peripheral artery disease, paroxysmal atrial fibrillation, COPD, prior CVA, hypertension and PE presented to the ER with complaints of right foot pain and swelling that have been going on for the previous 2 weeks. Patient was mainly from the midcalf down to his toes. On examination he did have signs of ischemia involving his foot along with some superficial cellulitis. Patient was admitted and started on intravenous heparin. He had been on Eliquis as outpatient for prior PE. He was evaluated by vascular surgery and was recommended saphenous vein mapping followed by right-sided femoropopliteal bypass with PTFE. After patient was cleared from cardiology standpoint with a negative stress test, patient underwent this procedure on 07/06/17. Since then he has been recovering well. His cellulitis has resolved. His right foot looks much better. His pain is also better controlled. He has been evaluated by physical therapy. He was recommended home health but patient does live alone and is uncomfortable and feels unsafe at home as he would not be able to manage himself. As a school social worker has been consulted and patient is being evaluated for possible placement to skilled rehabilitation. He will continue to take aspirin, Plavix and Eliquis. He was previously on Pletal which has now been stopped. - Time Spent with Patient Total time spent providing and/or coordinating discharge services: Greater than 30 minutes (50 min) - Constitutional Vitals: Temp Pulse Resp BP Pulse Ox 98.9 F 72 12 103/72 88 07/09/17 08:00 07/09/17 08:00 07/09/17 08:00 07/09/17 08:00 07/09/17 04:34 General appearance: Present: cooperative, mild distress, A&O X 3, answers questions appropriately - Neck Neck exam general surgery: Present: supple, trachea midline. Absent: lymphadenopathy - Respiratory Respiratory exam: Present: CTAB. Absent: accessory muscle use, rales, rhonchi, wheezes - Cardiovascular Cardiovascular exam: Present: RRR, +S1, +S2. Absent: diastolic murmur, gallop, rubs, systolic murmur - GI/Abdominal GI/Abdominal exam: Present: normal bowel sounds, soft, no peritoneal signs. Absent: distended, tenderness - Extremities Exam Extremities exam: Present: warm, radial pulses palpable and symmetrical. Absent : calf tenderness, cyanotic, pedal edema Additional comments: Improved erythema and swelling involving his right foot. There is ecchymosis noted on the opposing surfaces of the middle toes along with cyanosis of the plantar surface of the right fifth toe. Does have good pedal pulses now. - VTE Reasons for not Prescribing Prophylaxis: Not indicated-Anticoagulated or INR therapeutic Documentation of Mechanical Device: Intermittent pneumatic compression device
--- NOTE | 2017-07-09 13:45 | Physician Discharge Referral ---
ExtendedCare Referral Info Provider in Charge after Transfer: PCP Institutional Level of Care: Skilled - Diagnosis (1) Ischemia of right lower extremity Priority: Primary Status: Acute (2) Cellulitis Priority: Secondary Status: Acute (3) Peripheral artery disease Priority: Secondary Status: Chronic (4) COPD (chronic obstructive pulmonary disease) Priority: Secondary Status: Chronic (5) HTN (hypertension) Priority: Secondary Status: Chronic (6) Paroxysmal atrial fibrillation Priority: Secondary Status: Chronic (7) Pulmonary embolism Priority: Secondary Status: Chronic (8) Anemia Priority: Secondary Status: Chronic (9) Hyperkalemia Priority: Secondary Status: Acute Prognosis: Fair Aware of Diagnosis: Patient Aware of Prognosis: Patient - Transfer Medications Prescriptions: OxyCODONE/APAP 10/325 [Percocet 10/325 MG] 1 - 2 each PO Q4HR PRN 7 Days #84 tablet PRN Reason: RLE Bypass Surgical Pain LORazepam [Ativan] 1 mg PO Q6HR PRN #10 tablet PRN Reason: Anxiety Calcium Carbonate [Tums] 1,000 mg PO QID PRN #30 tab.chew PRN Reason: Heartburn Clopidogrel [Plavix] 75 mg PO DAILY 30 Days #30 tablet Docusate [Colace] 100 mg PO BID #60 capsule Folic Acid 1 mg PO DAILY #30 tablet Gabapentin [Neurontin] 600 mg PO HS #20 capsule Gabapentin [Neurontin] 300 mg PO BID #20 capsule Nicotine Patch [Nicoderm] 21 mg TD DAILY 30 Days #30 patch.td24 Home Medications: Apixaban [Eliquis] 5 mg PO BID 07/04/17 [History] Bisacodyl [Dulcolax] 10 mg RC DAILY PRN 07/04/17 [History] traZODone [TraZODone] 50 mg PO HS PRN 07/04/17 [History] Diltiazem CD (24hr) [Cardizem CD] 300 mg PO DAILY 07/05/17 [History] Magnesium Oxide [Mag-Ox] 400 mg PO DAILY 07/05/17 [History] Nicotine Patch [Nicoderm] 14 mg TD DAILY 07/05/17 [History] Ondansetron ODT [Zofran ODT] 4 mg PO Q6H PRN 07/05/17 [History] Pantoprazole Sodium [Protonix] 40 mg PO BID 07/05/17 [History] Torsemide [Demadex] 20 mg PO DAILY 07/05/17 [History] Vitamin B Complex [B Complex] 1 each PO QAM 07/05/17 [History] Calcium Carbonate [Tums] 1,000 mg PO QID PRN #30 tab.chew 07/09/17 [Rx] Clopidogrel [Plavix] 75 mg PO DAILY 30 Days #30 tablet 07/09/17 [Rx] Docusate [Colace] 100 mg PO BID #60 capsule 07/09/17 [Rx] Folic Acid 1 mg PO DAILY #30 tablet 07/09/17 [Rx] Gabapentin [Neurontin] 300 mg PO BID #20 capsule 07/09/17 [Rx] Gabapentin [Neurontin] 600 mg PO HS #20 capsule 07/09/17 [Rx] LORazepam [Ativan] 1 mg PO Q6HR PRN #10 tablet 07/09/17 [Rx] Nicotine Patch [Nicoderm] 21 mg TD DAILY 30 Days #30 patch.td24 07/09/17 [Rx] OxyCODONE/APAP 10/325 [Percocet 10/325 MG] 1 - 2 each PO Q4HR PRN 7 Days #84 tablet 07/09/17 [Rx] Allergies/Adverse Reactions: 3 Allergy/AdvReac Type Severity Reaction Status Date / Time codeine AdvReac See Verified 07/05/17 11:38 Comments furosemide [From Lasix] AdvReac Vomiting Verified 07/04/17 14:13 - Respiratory Orders Smoking Cessation: Smoking cessation has been advised. For more information, call the [place] Tobacco Quit Line at 3-754-GBKI-NOW. - Lab Orders Lab Orders: Other (include drug levels w/frequency) (BMP on 07/11/17 for hyperkalemia) - Ancillary Orders May consult with Dentist, Billing Clerk, Welder Assistant PRN - Advance Directives Code Status: Full Code - Mobility Orders Ambulate - Rehabiliation Orders Rehab Potential: Good Rehab Orders: Evaluation for Physical Therapy, Evaluation for Occupational Therapy - Diet Orders Cardiac CERTIFICATION: I certify that the transfer of the above named patient to an Extended Care Facility is necessary for the continuing treatment of the diagnosis listed. The above information is true and accurate reflection of patient's current condition. Confidential - Redisclosure prohibited without a patient's written consent.
[2017-07-09] MEDS: Famotidine 20 MG TABLET PO SCH (17:15)
[2017-07-09] MEDS: Mag Hydrox/Al Hydrox/Simeth 30 ML UDC PO PRN (18:57)
[2017-07-09] MEDS: traZODone 50 MG TABLET PO SCH (21:09)
[2017-07-09] MEDS: Temazepam 15 MG CAPSULE PO PRN (21:12)
[2017-07-10] MEDS: *HR* OxyCODONE/APAP 10/325 TABLET PO PRN ×3 (04:42→14:47)
[2017-07-10] MEDS: *HR* LORazepam 1 MG TABLET PO PRN ×2 (05:23→11:28)
[2017-07-10] MEDS: Torsemide 20 MG TABLET PO SCH (07:53)
[2017-07-10] MEDS: Aspirin Enteric Coated 81 MG Tablet PO SCH (07:53)
[2017-07-10] MEDS: Magnesium Oxide 400 MG TABLET PO SCH (07:53)
[2017-07-10] MEDS: Nicotine 21 MG PATCH.TD24 TD SCH (07:53)
[2017-07-10] MEDS: amLODIPine 5 MG TABLET PO SCH (07:53)
[2017-07-10] MEDS: Diltiazem CD (24hr) 300 MG CAPSULE PO SCH (07:53)
[2017-07-10] MEDS: Folic Acid 1 MG TABLET PO SCH (07:53)
[2017-07-10] MEDS: APIXABAN 5 MG TABLET PO SCH (07:53)
[2017-07-10] MEDS: Gabapentin 300 MG CAPSULE PO SCH (07:53)
[2017-07-10] MEDS: Famotidine 20 MG TABLET PO SCH (07:54)
[2017-07-10] MEDS: Bisacodyl 10 MG RECTAL SUPPOSITORY RC SCH (07:54)
[2017-07-10 11:13] VITALS: BP 109/80
== END 2017-07-10 15:15 | DRG 181 ==
LOC: EMEROO 14:05 → 3NENU 14:05 → SUATTDRO 23:31 → 2NNU 07-06 17:26
PROVIDERS: ADMIT Hospitalist; ATTEND Internal Medicine

== ENCOUNTER 2019-12-25 17:44 | Inpatient (IN) ==
[2019-12-25 19:06] LABS: Basophils # 0.1 K/mcL (0.0-0.2); Basophils % 1.4 %; Eosinophils # 0.2 K/mcL (0.0-0.6); Eosinophils % 3.1 %; Hematocrit 40.8 % (37.5-50.1); Hemoglobin 14.6 g/dL (12.9-16.9); Immature Granulocytes % 0.5 % (0-4); Lymphocytes # 1.4 K/mcL (0.6-4.6); Lymphocytes % 21.3 %; Mean Corpuscular HGB Conc 35.8 g/dL (31.6-35.5); Mean Corpuscular Hemoglobin 38.8 pg (28.0-33.3); Mean Corpuscular Volume 108.5 fL (83.0-100.0); Mean Platelet Volume 9.3 fL (9.4-12.4); Monocytes # 0.7 K/mcL (0.0-1.3); Monocytes % 10.4 %; Neutrophils # 4.1 K/mcL (1.6-8.9); Platelet Count 232 K/mcL (140-400); Red Blood Count 3.76 M/mcL (4.19-5.50); Red Cell Distribution Width 15.9 % (11.5-14.5); Segmented Neutrophils % 63.3 %; White Blood Count 6.5 K/mcL (4.3-11.1)
[2019-12-25 19:10] LABS: INR 0.9; Prothrombin Time 9.7 Seconds (9.4-12.1)
[2019-12-25 19:28] LABS: Alanine Aminotransferase 12 Units/L (7-52); Albumin 3.7 g/dL (3.5-5.7); Albumin/Globulin Ratio 1.5 (1.1-2.2); Alkaline Phosphatase 73 Units/L (34-104); Aspartate Amino Transferase 22 Units/L (13-39); BUN/Creatinine Ratio 14 (6-26); Bilirubin,Direct 0.1 mg/dL (0.0-0.2); Bilirubin,Indirect 0.3 mg/dL (0.0-1.0); Bilirubin,Total 0.4 mg/dL (0.3-1.0); Blood Urea Nitrogen 8 mg/dL (6-20); Calcium 8.6 mg/dL (8.6-10.3); Carbon Dioxide 22 mEq/L (23-29); Chloride 102 mEq/L (98-107); Creatine Kinase 58 Units/L (30-223); Ethanol 334 mg/dL (Less than 10); Globulin 2.5 g/dL (2.4-3.5); Glucose 80 mg/dL (70-105); Osmolality,Calculated 273 (280-300); Sodium 133 mEq/L (136-145); Total Protein 6.2 g/dL (6.4-8.9); Troponin I < 0.03 ng/mL (< 0.04); eGFR For African Americans > 60 (> 60); eGFR For Non-African Americans > 60 (> 60)
[2019-12-25] MEDS ORDERED: Isovue-370 500 ML BOTTLE IVP ONE (19:54)
[2019-12-25] MEDS ORDERED: Aspirin 325 MG TABLET PO ONE (20:47)
[2019-12-25 21:35] LABS: Bilirubin,Urine Negative (Negative); Blood,Urine Negative (Negative); Clarity,Urine Clear (Clear); Color,Urine Yellow (Yellow); Glucose,Urine (UA) Normal (Normal); Ketones,Urine Negative (Negative); Leukocyte Esterase,Urine Negative (Negative); Nitrite,Urine Negative (Negative); Protein,Urine Negative (Neg-Trace); Specific Gravity,Urine 1.022 (1.010-1.025); Urobilinogen,Urine Normal (Normal)
[2019-12-25 21:50] LABS: Amphetamine Screen,Urine Negative ng/mL (Cutoff=1000); Barbiturate Screen,Urine Negative ng/mL (Cutoff=200); Benzodiazepines Screen,Urine Negative ng/mL (Cutoff=200); Cannabinoid Screen,Urine Positive ng/mL (Cutoff = 50); Cocaine Screen,Urine Negative ng/mL (Cutoff= 300); Opiate Screen,Urine Negative ng/mL (Cutoff=300); Phencyclidine Screen,Urine Negative ng/mL (Cutoff=25)
[2019-12-25] MEDS ORDERED: Ondansetron 4 MG/2 ML VIAL IVP PRN (22:52)
[2019-12-25] MEDS ORDERED: Naloxone 0.4 MG/ML INJ IVP PRN (22:52)
[2019-12-25] MEDS ORDERED: 0.9 % Sodium Chloride 1,000 ML IV ONE (23:13)
[2019-12-26] MEDS ORDERED: Ipratropium/Albuterol Neb 3 ML IH PRN (00:02)
[2019-12-26] MEDS ORDERED: *HR* LORazepam 2 MG/ML VIAL IVP PRN ×2 (00:02→00:03)
[2019-12-26] MEDS: *HR* Heparin 5,000 UNIT/ML VIAL SQ SCH ×4 (00:10→20:16)
[2019-12-26] MEDS: 0.9 % Sodium Chloride 1,000 ML IVC SCH ×2 (02:04→16:33)
[2019-12-26] MEDS: Folic Acid 1 MG TABLET PO SCH (07:42)
[2019-12-26] MEDS: Thiamine (B-1) 100 MG TABLET PO SCH (07:42)
[2019-12-26 08:28] LABS: Basophils # 0.1 K/mcL (0.0-0.2); Basophils % 1.3 %; Eosinophils # 0.2 K/mcL (0.0-0.6); Eosinophils % 3.2 %; Hemoglobin 14.6 g/dL (12.9-16.9); Immature Granulocytes % 0.4 % (0-4); Lymphocytes # 0.9 K/mcL (0.6-4.6); Lymphocytes % 16.9 %; Mean Corpuscular HGB Conc 36.5 g/dL (31.6-35.5); Mean Corpuscular Hemoglobin 40.2 pg (28.0-33.3); Mean Corpuscular Volume 110.2 fL (83.0-100.0); Mean Platelet Volume 9.3 fL (9.4-12.4); Monocytes # 0.5 K/mcL (0.0-1.3); Monocytes % 9.6 %; Neutrophils # 3.7 K/mcL (1.6-8.9); Platelet Count 206 K/mcL (140-400); Red Blood Count 3.63 M/mcL (4.19-5.50); Red Cell Distribution Width 15.6 % (11.5-14.5); Segmented Neutrophils % 68.6 %; White Blood Count 5.4 K/mcL (4.3-11.1)
[2019-12-26 08:39] LABS: INR 0.9; Prothrombin Time 10.2 Seconds (9.4-12.1)
[2019-12-26 08:48] LABS: Alanine Aminotransferase 13 Units/L (7-52); Albumin/Globulin Ratio 1.8 (1.1-2.2); Alkaline Phosphatase 74 Units/L (34-104); Aspartate Amino Transferase 31 Units/L (13-39); BUN/Creatinine Ratio 11 (6-26); Bilirubin,Total 0.7 mg/dL (0.3-1.0); Blood Urea Nitrogen 6 mg/dL (6-20); Calcium 8.7 mg/dL (8.6-10.3); Carbon Dioxide 24 mEq/L (23-29); Chloride 103 mEq/L (98-107); Chol/HDL Ratio 2.1 (0-4.9); Cholesterol 185 mg/dL (< 200); Globulin 2.2 g/dL (2.4-3.5); Glucose 87 mg/dL (70-105); HDL Cholesterol 88 mg/dL (40-59); LDL Cholesterol,Calculated 82 mg/dL (0-99); Magnesium 1.7 mg/dL (1.6-2.6); Osmolality,Calculated 279 (280-300); Phosphorous 3.4 mg/dL (2.7-4.5); Potassium 3.9 mEq/L (3.5-5.1); Sodium 136 mEq/L (136-145); Total Protein 6.2 g/dL (6.4-8.9); Triglycerides 75 mg/dL (< 150); eGFR For African Americans > 60 (> 60); eGFR For Non-African Americans > 60 (> 60)
[2019-12-26 08:50] LABS: Macrocytosis Present (Not Present)
[2019-12-26 08:51] LABS: Platelet Estimate Normal (Normal)
[2019-12-26] MEDS ORDERED: Aspirin 81 MG TAB.CHEW PO SCH (09:00)
[2019-12-26] MEDS: Nicotine 21 MG PATCH.TD24 TD SCH (13:23)
[2019-12-27] MEDS: *HR* Heparin 5,000 UNIT/ML VIAL SQ SCH (05:23)
[2019-12-27 07:55] LABS: Estimated Average Glucose 105 mg/dl
[2019-12-27] MEDS: Folic Acid 1 MG TABLET PO SCH (09:28)
[2019-12-27] MEDS: Thiamine (B-1) 100 MG TABLET PO SCH (09:28)
[2019-12-27] MEDS: Nicotine 21 MG PATCH.TD24 TD SCH (09:28)
[2019-12-27 11:04] VITALS: BP 125/98
== END 2019-12-27 12:26 | disposition home health service (06) | DRG 45 ==
LOC: EMEROOARM 17:44 → 3BNU 17:44 → SUATTDRO 22:26 → 3BNU 23:02
PROVIDERS: ADMIT Internal Medicine; ATTEND Internal Medicine

== ENCOUNTER 2020-01-09 16:58 | Observation (INO) ==
[2020-01-09 17:37] LABS: Basophils # 0.1 K/mcL (0.0-0.2); Basophils % 0.9 %; Eosinophils # 0.1 K/mcL (0.0-0.6); Eosinophils % 0.9 %; Hematocrit 42.7 % (37.5-50.1); Hemoglobin 15.1 g/dL (12.9-16.9); Immature Granulocytes % 0.5 % (0-4); Lymphocytes # 1.1 K/mcL (0.6-4.6); Lymphocytes % 12.1 %; Mean Corpuscular HGB Conc 35.4 g/dL (31.6-35.5); Mean Corpuscular Hemoglobin 39.4 pg (28.0-33.3); Mean Corpuscular Volume 111.5 fL (83.0-100.0); Mean Platelet Volume 9.6 fL (9.4-12.4); Monocytes # 0.9 K/mcL (0.0-1.3); Monocytes % 9.1 %; Platelet Count 273 K/mcL (140-400); Red Blood Count 3.83 M/mcL (4.19-5.50); Red Cell Distribution Width 14.4 % (11.5-14.5); Segmented Neutrophils % 76.5 %; White Blood Count 9.3 K/mcL (4.3-11.1)
[2020-01-09 17:38] LABS: Neutrophils # 7.1 K/mcL (1.6-8.9)
[2020-01-09 17:43] LABS: VBG HCO3 25 mEq/L (21-27); VBG PCO2 42 mmHg (41-51); VBG PH 7.38 pH Units (7.32-7.42); VBG PO2 60 mmHg (25-50)
[2020-01-09 17:54] LABS: Alanine Aminotransferase 12 Units/L (7-52); Albumin 4.2 g/dL (3.5-5.7); Albumin/Globulin Ratio 1.8 (1.1-2.2); Alkaline Phosphatase 80 Units/L (34-104); Aspartate Amino Transferase 23 Units/L (13-39); BUN/Creatinine Ratio 10 (6-26); Bilirubin,Total 0.5 mg/dL (0.3-1.0); Blood Urea Nitrogen 6 mg/dL (6-20); Carbon Dioxide 22 mEq/L (23-29); Chloride 95 mEq/L (98-107); Ethanol 443 mg/dL (Less than 10); Globulin 2.4 g/dL (2.4-3.5); Glucose 90 mg/dL (70-105); Osmolality,Calculated 273 (280-300); Potassium 4.2 mEq/L (3.5-5.1); Sodium 133 mEq/L (136-145); Total Protein 6.6 g/dL (6.4-8.9); eGFR For African Americans > 60 (> 60); eGFR For Non-African Americans > 60 (> 60)
[2020-01-09 18:05] LABS: Anisocytosis 1+ (Not Present); Macrocytosis Present (Not Present); Platelet Estimate Normal (Normal)
[2020-01-09] MEDS ORDERED: 0.9 % Sodium Chloride 1,000 ML IVC ONE (19:43)
[2020-01-09] MEDS ORDERED: Naloxone 0.4 MG/ML INJ IVP PRN (20:30)
[2020-01-09] MEDS ORDERED: *HR* LORazepam 2 MG/ML VIAL IVP PRN ×3 (20:30)
[2020-01-09] MEDS ORDERED: Ipratropium/Albuterol Neb 3 ML IH PRN (21:57)
[2020-01-09] MEDS: Thiamine (B-1) 100 MG in 0.9 % Sodium Chloride 50 ML IVPB STA ×2 (22:13→23:45)
[2020-01-09] MEDS: 0.9 % Sodium Chloride 1,000 ML IVC SCH ×2 (22:13→23:46)
[2020-01-10] MEDS ORDERED: Ondansetron 4 MG/2 ML VIAL IVP PRN (03:47)
[2020-01-10] MEDS: *HR* Heparin 5,000 UNIT/ML VIAL SQ SCH ×2 (05:22→18:11)
[2020-01-10] MEDS: Multivit/Ca/Min/Fe/FA 1 TAB TABLET PO SCH (09:11)
[2020-01-10] MEDS: Thiamine (B-1) 100 MG TABLET PO SCH (09:11)
[2020-01-10 09:48] LABS: Basophils # 0.1 K/mcL (0.0-0.2); Basophils % 0.7 %; Eosinophils # 0.1 K/mcL (0.0-0.6); Eosinophils % 0.6 %; Hematocrit 39.6 % (37.5-50.1); Hemoglobin 14.1 g/dL (12.9-16.9); Immature Granulocytes % 0.6 % (0-4); Lymphocytes # 0.6 K/mcL (0.6-4.6); Mean Corpuscular HGB Conc 35.6 g/dL (31.6-35.5); Mean Corpuscular Hemoglobin 39.4 pg (28.0-33.3); Mean Corpuscular Volume 110.6 fL (83.0-100.0); Mean Platelet Volume 9.5 fL (9.4-12.4); Monocytes # 0.9 K/mcL (0.0-1.3); Monocytes % 9.6 %; Platelet Count 261 K/mcL (140-400); Red Blood Count 3.58 M/mcL (4.19-5.50); Red Cell Distribution Width 14.2 % (11.5-14.5); Segmented Neutrophils % 81.5 %
[2020-01-10 09:50] LABS: Neutrophils # 7.3 K/mcL (1.6-8.9)
[2020-01-10 09:52] LABS: INR 0.9; Prothrombin Time 10.6 Seconds (9.4-12.1)
[2020-01-10 10:07] LABS: Alanine Aminotransferase 11 Units/L (7-52); Albumin 4.1 g/dL (3.5-5.7); Albumin/Globulin Ratio 1.7 (1.1-2.2); Alkaline Phosphatase 78 Units/L (34-104); Aspartate Amino Transferase 21 Units/L (13-39); BUN/Creatinine Ratio 12 (6-26); Bilirubin,Total 0.9 mg/dL (0.3-1.0); Blood Urea Nitrogen 6 mg/dL (6-20); Calcium 8.9 mg/dL (8.6-10.3); Carbon Dioxide 22 mEq/L (23-29); Chloride 99 mEq/L (98-107); Globulin 2.4 g/dL (2.4-3.5); Glucose 115 mg/dL (70-105); Osmolality,Calculated 279 (280-300); Potassium 3.7 mEq/L (3.5-5.1); Sodium 135 mEq/L (136-145); Total Protein 6.5 g/dL (6.4-8.9); eGFR For African Americans > 60 (> 60); eGFR For Non-African Americans > 60 (> 60)
[2020-01-10 10:26] LABS: Anisocytosis 1+ (Not Present)
[2020-01-10 10:27] LABS: Macrocytosis Present (Not Present); Platelet Estimate Normal (Normal)
[2020-01-10 10:33] LABS: Folate 9.5 ng/mL (3.0-16.0)
[2020-01-10 10:52] LABS: Magnesium 1.5 mg/dL (1.6-2.6); Phosphorous 3.3 mg/dL (2.7-4.5)
[2020-01-10] MEDS: Acetaminophen 325 MG TABLET PO PRN ×2 (13:45→20:58)
[2020-01-10] MEDS: Nicotine 21 MG PATCH.TD24 TD SCH (16:45)
[2020-01-11] MEDS: *HR* Heparin 5,000 UNIT/ML VIAL SQ SCH (06:09)
[2020-01-11 07:29] VITALS: BP 150/91
[2020-01-11] MEDS: Thiamine (B-1) 100 MG TABLET PO SCH (10:25)
[2020-01-11] MEDS: Nicotine 21 MG PATCH.TD24 TD SCH (10:25)
[2020-01-11] MEDS: Multivit/Ca/Min/Fe/FA 1 TAB TABLET PO SCH (10:25)
== END 2020-01-11 11:34 | disposition home or self-care (01) ==
LOC: 3BNU 16:58 → EMEROOARM 16:58 → SUATTDRO 19:52 → 3BNU 20:20
PROVIDERS: ADMIT Internal Medicine; ATTEND Internal Medicine

== ENCOUNTER 2020-03-16 12:14 | Inpatient (IN) ==
[2020-03-16] MEDS ORDERED: Ondansetron 4 MG/2 ML VIAL IVP PRN (16:09)
[2020-03-16] MEDS ORDERED: Naloxone 0.4 MG/ML INJ IVP PRN (16:09)
[2020-03-16] MEDS ORDERED: *HR* HYDROcodone/Acet 5/325 mg TABLET PO PRN (16:09)
[2020-03-16] MEDS ORDERED: Acetaminophen 325 MG TABLET PO PRN (16:09)
[2020-03-16 16:12] LABS: Hematocrit 39.6 % (37.5-50.1); Mean Corpuscular HGB Conc 35.4 g/dL (31.6-35.5); Mean Corpuscular Hemoglobin 40.3 pg (28.0-33.3); Mean Corpuscular Volume 114.1 fL (83.0-100.0); Mean Platelet Volume 9.6 fL (9.4-12.4); Platelet Count 275 K/mcL (140-400); Red Blood Count 3.47 M/mcL (4.19-5.50); Red Cell Distribution Width 14.7 % (11.5-14.5); White Blood Count 9.5 K/mcL (4.3-11.1)
[2020-03-16 16:29] LABS: BUN/Creatinine Ratio 12 (6-26); Blood Urea Nitrogen 6 mg/dL (8-23); Calcium 9.2 mg/dL (8.6-10.3); Carbon Dioxide 27 mEq/L (23-29); Chloride 98 mEq/L (98-107); Glucose 98 mg/dL (70-105); Osmolality,Calculated 280 (280-300); Sodium 136 mEq/L (136-145); eGFR For African Americans > 60 (> 60); eGFR For Non-African Americans > 60 (> 60)
[2020-03-16 16:30] LABS: INR 0.9; Prothrombin Time 10.2 Seconds (9.4-12.1)
[2020-03-16] MEDS ORDERED: *HR* LORazepam 2 MG/ML VIAL IVP PRN ×3 (16:48)
[2020-03-16] MEDS ORDERED: Ipratropium/Albuterol Neb 3 ML IH PRN (16:51)
[2020-03-16] MEDS ORDERED: *HR* HYDROmorphone 2 MG TABLET PO ONE (21:10)
[2020-03-16 21:15] LABS: Alanine Aminotransferase 38 Units/L (7-52); Albumin 3.9 g/dL (3.5-5.7); Albumin/Globulin Ratio 1.6 (1.1-2.2); Alkaline Phosphatase 110 Units/L (34-104); Aspartate Amino Transferase 48 Units/L (13-39); Bilirubin,Direct 0.2 mg/dL (0.0-0.2); Bilirubin,Indirect 0.6 mg/dL (0.0-1.0); Bilirubin,Total 0.8 mg/dL (0.3-1.0); Globulin 2.4 g/dL (2.4-3.5); Total Protein 6.3 g/dL (6.4-8.9)
[2020-03-16] MEDS ORDERED: *HR* HYDROmorphone (PF) 1 MG/ML SYRINGE IVP ONE (22:58)
[2020-03-17] MEDS ORDERED: *HR* OxyCODONE Immed Rel 15 MG TABLET PO ONE (01:18)
[2020-03-17] MEDS ORDERED: *HR* Enoxaparin 40 MG/0.4 ML SYRINGE SQ SCH (06:00)
[2020-03-17] MEDS ORDERED: *HR* OxyCODONE Immed Rel 5 MG TABLET PO ONE (06:15)
[2020-03-17 06:42] LABS: Hematocrit 35.6 % (37.5-50.1); Hemoglobin 12.5 g/dL (12.9-16.9); Mean Corpuscular HGB Conc 35.1 g/dL (31.6-35.5); Mean Corpuscular Hemoglobin 40.1 pg (28.0-33.3); Mean Corpuscular Volume 114.1 fL (83.0-100.0); Mean Platelet Volume 10.3 fL (9.4-12.4); Platelet Count 224 K/mcL (140-400); Red Blood Count 3.12 M/mcL (4.19-5.50); Red Cell Distribution Width 14.6 % (11.5-14.5); White Blood Count 7.6 K/mcL (4.3-11.1)
[2020-03-17 07:07] LABS: BUN/Creatinine Ratio 16 (6-26); Blood Urea Nitrogen 8 mg/dL (8-23); Calcium 8.7 mg/dL (8.6-10.3); Carbon Dioxide 26 mEq/L (23-29); Chloride 95 mEq/L (98-107); Glucose 112 mg/dL (70-105); Osmolality,Calculated 271 (280-300); Potassium 3.8 mEq/L (3.5-5.1); Sodium 131 mEq/L (136-145); eGFR For African Americans > 60 (> 60); eGFR For Non-African Americans > 60 (> 60)
[2020-03-17] MEDS ORDERED: Vitamin B Complex/Vit C/Vit E 1 EACH TABLET PO SCH (09:00)
[2020-03-17] MEDS ORDERED: Folic Acid 1 MG TABLET PO SCH (09:00)
[2020-03-17] MEDS ORDERED: Dexamethasone 4 MG/ML VIAL ONE (16:30)
[2020-03-17] MEDS ORDERED: Ondansetron 4 MG/2 ML VIAL ONE (16:30)
[2020-03-17] MEDS ORDERED: Lidocaine -MPF 2% 2 ML VIAL ONE ×2 (16:30→17:45)
[2020-03-17] MEDS ORDERED: *HR* Midazolam HCl 2 MG/2 ML VIAL ONE (16:33)
[2020-03-17] MEDS ORDERED: *HR* Propofol 200 MG/20 ML VIAL IVP ONE (16:33)
[2020-03-17] MEDS ORDERED: *HR* FentaNYL (PF) 100 MCG/2 ML VIAL ONE (16:33)
[2020-03-17] MEDS ORDERED: Ropivacaine/PF 0.5% 30 ML VIAL ONE (16:55)
[2020-03-17] MEDS ORDERED: Ethanol\\Acetic Acid\\Na Ace\\Ben 1,000 ML IRRIG.SOLN IR ONE (16:57)
[2020-03-17] MEDS ORDERED: *HR* HYDROmorphone PF 0.5 MG/0.5 ML SYRINGE IVP PRN ×2 (17:15→19:57)
[2020-03-17] MEDS ORDERED: *HR* HYDROMORPHONE 2 MG/ML VIAL ONE (17:50)
[2020-03-17] MEDS ORDERED: Ipratropium/Albuterol Neb 3 ML IH PRN (19:57)
[2020-03-17] MEDS ORDERED: *HR* Promethazine 25 MG/ML VIAL IVP PRN (19:57)
[2020-03-17] MEDS ORDERED: Ringers Solution, Lactated 1,000 ML IVC SCH (19:57)
[2020-03-17] MEDS ORDERED: Naloxone 0.4 MG/ML INJ IVP PRN ×2 (19:57)
[2020-03-17] MEDS ORDERED: Sennosides 8.6 MG TABLET PO PRN (19:57)
[2020-03-17] MEDS ORDERED: Ondansetron 4 MG/2 ML VIAL IVP PRN ×2 (19:57)
[2020-03-17] MEDS ORDERED: MOM Conc 10 ML UD.LIQ PO PRN (19:57)
[2020-03-17] MEDS ORDERED: *HR* LORazepam 2 MG/ML VIAL IVP PRN ×3 (19:57)
[2020-03-17 20:25] LABS: Hematocrit 36.1 % (37.5-50.1); Hemoglobin 12.4 g/dL (12.9-16.9)
[2020-03-18] MEDS: CeFAZolin 2 GM/120 ML BAG IVPB SCH ×2 (01:04→07:59)
[2020-03-18 06:49] LABS: Basophils % 0.2 %; Hematocrit 33.5 % (37.5-50.1); Hemoglobin 11.5 g/dL (12.9-16.9); Lymphocytes # 0.7 K/mcL (0.6-4.6); Lymphocytes % 7.9 %; Mean Corpuscular HGB Conc 34.3 g/dL (31.6-35.5); Mean Corpuscular Hemoglobin 39.5 pg (28.0-33.3); Mean Corpuscular Volume 115.1 fL (83.0-100.0); Mean Platelet Volume 10.1 fL (9.4-12.4); Monocytes # 1.3 K/mcL (0.0-1.3); Monocytes % 13.9 %; Neutrophils # 7.2 K/mcL (1.6-8.9); Platelet Count 174 K/mcL (140-400); Red Blood Count 2.91 M/mcL (4.19-5.50); Red Cell Distribution Width 14.5 % (11.5-14.5); White Blood Count 9.4 K/mcL (4.3-11.1)
[2020-03-18 07:12] LABS: BUN/Creatinine Ratio 15 (6-26); Blood Urea Nitrogen 8 mg/dL (8-23); Calcium 8.6 mg/dL (8.6-10.3); Carbon Dioxide 24 mEq/L (23-29); Chloride 95 mEq/L (98-107); Glucose 117 mg/dL (70-105); Osmolality,Calculated 265 (280-300); Potassium 4.1 mEq/L (3.5-5.1); Sodium 128 mEq/L (136-145); eGFR For African Americans > 60 (> 60); eGFR For Non-African Americans > 60 (> 60)
[2020-03-18 07:22] LABS: Macrocytosis Present (Not Present); Platelet Estimate Normal (Normal)
[2020-03-18] MEDS ORDERED: 0.9 % Sodium Chloride 1,000 ML IVC SCH (07:45)
[2020-03-18] MEDS: Ascorbic Acid 500 MG TABLET PO SCH ×2 (08:00→16:01)
[2020-03-18] MEDS ORDERED: Multivit/Ca/Min/Fe/FA 1 TAB TABLET PO SCH (09:00)
[2020-03-18] MEDS ORDERED: Folic Acid 1 MG TABLET PO SCH (09:00)
[2020-03-18] MEDS ORDERED: Vitamin B Complex/Vit C/Vit E 1 EACH TABLET PO SCH (09:00)
[2020-03-18] MEDS: Acetaminophen 325 MG TABLET PO PRN ×2 (12:26→21:05)
[2020-03-18] MEDS ORDERED: *HR* Promethazine 25 MG/ML VIAL IVP PRN (15:58)
[2020-03-18 16:47] LABS: BUN/Creatinine Ratio 16 (6-26); Blood Urea Nitrogen 11 mg/dL (8-23); Carbon Dioxide 30 mEq/L (23-29); Chloride 92 mEq/L (98-107); Glucose 112 mg/dL (70-105); Osmolality,Calculated 272 (280-300); Potassium 3.3 mEq/L (3.5-5.1); Sodium 131 mEq/L (136-145); eGFR For African Americans > 60 (> 60); eGFR For Non-African Americans > 60 (> 60)
[2020-03-18] MEDS ORDERED: Aspirin Enteric Coated 81 MG Tablet PO SCH (17:18)
[2020-03-18] MEDS ORDERED: Isovue-370 500 ML BOTTLE IVP ONE (21:08)
[2020-03-18] MEDS ORDERED: *HR* Heparin 5,000 UNIT/ML VIAL IVP PRN ×2 (21:21)
[2020-03-18] MEDS ORDERED: *HR* Heparin 5,000 UNIT/ML VIAL IVP ONE (21:21)
[2020-03-18] MEDS ORDERED: Heparin 25,000 UNIT/250 ML D5W 25,000 UNIT/250 ML IV.SOLN IVC SCH (21:30)
[2020-03-18 22:01] LABS: Hematocrit 28.9 % (37.5-50.1); Hemoglobin 10.1 g/dL (12.9-16.9); Mean Corpuscular HGB Conc 34.9 g/dL (31.6-35.5); Mean Corpuscular Hemoglobin 40.4 pg (28.0-33.3); Mean Corpuscular Volume 115.6 fL (83.0-100.0); Mean Platelet Volume 10.4 fL (9.4-12.4); Platelet Count 148 K/mcL (140-400); Red Cell Distribution Width 14.5 % (11.5-14.5); White Blood Count 9.4 K/mcL (4.3-11.1)
[2020-03-18 22:11] LABS: Heparin anti-factor XA UFH < 0.04 IU/mL (0.30-0.70)
[2020-03-18 22:12] LABS: INR 0.9; Prothrombin Time 9.9 Seconds (9.4-12.1)
[2020-03-18] MEDS ORDERED: Potassium Chloride 20 MEQ, Lidocaine 1% 2 ML in 0.9 % Sodium Chloride 250 ML IVPB ONE (23:54)
[2020-03-19] MEDS ORDERED: *HR* OxyCODONE Immed Rel 5 MG TABLET PO PRN (04:17)
[2020-03-19] MEDS ORDERED: *HR* Promethazine 25 MG/ML VIAL IVP PRN ×2 (04:17→09:40)
[2020-03-19] MEDS ORDERED: *HR* HYDROmorphone PF 0.5 MG/0.5 ML SYRINGE IVP PRN (04:17)
[2020-03-19] MEDS ORDERED: *HR* Rocuronium Bromide 50 MG/5 ML VIAL ONE ×2 (04:21→06:40)
[2020-03-19] MEDS ORDERED: Lidocaine -MPF 2% 2 ML VIAL ONE (04:21)
[2020-03-19] MEDS ORDERED: Ondansetron 4 MG/2 ML VIAL ONE (04:21)
[2020-03-19] MEDS ORDERED: *HR* Propofol 200 MG/20 ML VIAL IVP ONE (04:21)
[2020-03-19] MEDS ORDERED: Lidocaine HCL 4 ML Topical Solution (Laryng-O-Jet Kit Sterile Pak) TP ONE (04:21)
[2020-03-19] MEDS ORDERED: Dexamethasone 4 MG/ML VIAL ONE (04:21)
[2020-03-19] MEDS ORDERED: *HR* FentaNYL (PF) 100 MCG/2 ML VIAL ONE ×2 (04:21→06:40)
[2020-03-19] MEDS ORDERED: Heparin 1,000 UNITS/500 mL 500 ML ONE (04:37)
[2020-03-19] MEDS ORDERED: Vancomycin 1,000 MG VIAL ONE (04:38)
[2020-03-19] MEDS ORDERED: *HR* PHENYLEPHRINE 1,000 MCG/10 ML SYRINGE IVP ONE (05:35)
[2020-03-19] MEDS ORDERED: *HR* Enoxaparin 40 MG/0.4 ML SYRINGE SQ SCH (06:00)
[2020-03-19] MEDS ORDERED: *HR* Heparin 5,000 UNIT/ML VIAL ONE (06:41)
[2020-03-19] MEDS ORDERED: *HR* HYDROMORPHONE 2 MG/ML VIAL ONE (07:26)
[2020-03-19] MEDS ORDERED: *HR* Midazolam HCl 2 MG/2 ML VIAL ONE (08:57)
[2020-03-19] MEDS ORDERED: Acetaminophen 325 MG TABLET PO PRN (09:40)
[2020-03-19] MEDS ORDERED: Ipratropium/Albuterol Neb 3 ML IH PRN (09:40)
[2020-03-19] MEDS ORDERED: Ondansetron 4 MG/2 ML VIAL IVP PRN (09:40)
[2020-03-19] MEDS ORDERED: Naloxone 0.4 MG/ML INJ IVP PRN (09:40)
[2020-03-19] MEDS ORDERED: *HR* Labetalol 20 MG/4 ML SYRINGE IVP PRN (09:40)
[2020-03-19] MEDS ORDERED: 0.9 % Sodium Chloride 1,000 ML IVC SCH (09:40)
[2020-03-19] MEDS ORDERED: MOM Conc 10 ML UD.LIQ PO PRN (09:40)
[2020-03-19] MEDS ORDERED: *HR* LORazepam 2 MG/ML VIAL IVP PRN ×3 (09:40)
[2020-03-19] MEDS ORDERED: CeFAZolin 2 GM/120 ML BAG IVPB SCH (10:00)
[2020-03-19 10:51] LABS: Basophils % 0.2 %; Hemoglobin 11.6 g/dL (12.9-16.9); Immature Granulocytes % 1.1 % (0-4); Lymphocytes # 0.3 K/mcL (0.6-4.6); Lymphocytes % 1.8 %; Mean Corpuscular HGB Conc 34.1 g/dL (31.6-35.5); Mean Corpuscular Hemoglobin 40.7 pg (28.0-33.3); Mean Corpuscular Volume 119.3 fL (83.0-100.0); Monocytes # 1.5 K/mcL (0.0-1.3); Monocytes % 9.2 %; Neutrophils # 13.9 K/mcL (1.6-8.9); Platelet Count 160 K/mcL (140-400); Red Blood Count 2.85 M/mcL (4.19-5.50); Red Cell Distribution Width 14.6 % (11.5-14.5); Segmented Neutrophils % 87.7 %
[2020-03-19 10:55] LABS: White Blood Count 15.8 K/mcL (4.3-11.1)
[2020-03-19 11:12] LABS: Anisocytosis 1+ (Not Present); Macrocytosis Present (Not Present); Platelet Estimate Normal (Normal)
[2020-03-19] MEDS: *HR* Metoprolol 5 MG/5 ML VIAL IVP SCH ×3 (12:25→23:38)
[2020-03-19] MEDS: CeFAZolin 2 GM/120 ML BAG IVPB SCH ×2 (13:18→20:32)
[2020-03-19] MEDS: Ascorbic Acid 500 MG TABLET PO SCH (17:23)
[2020-03-19] MEDS: *HR* Heparin 5,000 UNIT/ML VIAL SQ SCH (17:24)
[2020-03-20 01:17] LABS: Basophils % 0.3 %; Eosinophils % 0.2 %; Hematocrit 27.7 % (37.5-50.1); Immature Granulocytes % 0.8 % (0-4); Lymphocytes # 1.1 K/mcL (0.6-4.6); Lymphocytes % 9.4 %; Mean Corpuscular HGB Conc 32.9 g/dL (31.6-35.5); Mean Corpuscular Hemoglobin 39.2 pg (28.0-33.3); Mean Corpuscular Volume 119.4 fL (83.0-100.0); Mean Platelet Volume 11.4 fL (9.4-12.4); Monocytes # 1.8 K/mcL (0.0-1.3); Monocytes % 15.1 %; Neutrophils # 8.6 K/mcL (1.6-8.9); Platelet Count 128 K/mcL (140-400); Red Blood Count 2.32 M/mcL (4.19-5.50); Red Cell Distribution Width 14.7 % (11.5-14.5); Segmented Neutrophils % 74.2 %; White Blood Count 11.6 K/mcL (4.3-11.1)
[2020-03-20 01:21] LABS: Hemoglobin 9.1 g/dL (12.9-16.9)
[2020-03-20 01:35] LABS: BUN/Creatinine Ratio 10 (6-26); Blood Urea Nitrogen 6 mg/dL (8-23); Carbon Dioxide 28 mEq/L (23-29); Chloride 97 mEq/L (98-107); Glucose 124 mg/dL (70-105); Magnesium 1.4 mg/dL (1.6-2.6); Osmolality,Calculated 271 (280-300); Potassium 3.3 mEq/L (3.5-5.1); Sodium 131 mEq/L (136-145); eGFR For African Americans > 60 (> 60); eGFR For Non-African Americans > 60 (> 60)
[2020-03-20 01:43] LABS: Anisocytosis 1+ (Not Present); Macrocytosis Present (Not Present); Platelet Estimate Normal (Normal)
[2020-03-20] MEDS: *HR* Metoprolol 5 MG/5 ML VIAL IVP SCH ×4 (06:17→23:45)
[2020-03-20] MEDS: *HR* Heparin 5,000 UNIT/ML VIAL SQ SCH ×2 (06:18→16:42)
[2020-03-20] MEDS: Folic Acid 1 MG TABLET PO SCH (07:34)
[2020-03-20] MEDS: Multivit/Ca/Min/Fe/FA 1 TAB TABLET PO SCH (07:34)
[2020-03-20] MEDS: Ascorbic Acid 500 MG TABLET PO SCH ×2 (07:34→16:42)
[2020-03-20] MEDS: Vitamin B Complex/Vit C/Vit E 1 EACH TABLET PO SCH (07:34)
[2020-03-20] MEDS: *HR* HYDROmorphone (PF) 1 MG/ML SYRINGE IVP PRN ×2 (17:21→22:28)
[2020-03-21 04:38] LABS: Basophils # 0.1 K/mcL (0.0-0.2); Basophils % 0.4 %; Eosinophils % 0.3 %; Hematocrit 27.9 % (37.5-50.1); Hemoglobin 9.4 g/dL (12.9-16.9); Immature Granulocytes % 0.7 % (0-4); Lymphocytes # 1.1 K/mcL (0.6-4.6); Mean Corpuscular HGB Conc 33.7 g/dL (31.6-35.5); Mean Corpuscular Hemoglobin 39.3 pg (28.0-33.3); Mean Corpuscular Volume 116.7 fL (83.0-100.0); Mean Platelet Volume 10.7 fL (9.4-12.4); Monocytes # 2.3 K/mcL (0.0-1.3); Platelet Count 166 K/mcL (140-400); Red Blood Count 2.39 M/mcL (4.19-5.50); Red Cell Distribution Width 14.2 % (11.5-14.5); Segmented Neutrophils % 71.6 %; White Blood Count 12.5 K/mcL (4.3-11.1)
[2020-03-21 04:59] LABS: BUN/Creatinine Ratio 13 (6-26); Blood Urea Nitrogen 6 mg/dL (8-23); Carbon Dioxide 25 mEq/L (23-29); Chloride 96 mEq/L (98-107); Glucose 101 mg/dL (70-105); Magnesium 1.5 mg/dL (1.6-2.6); Osmolality,Calculated 264 (280-300); Sodium 128 mEq/L (136-145); eGFR For African Americans > 60 (> 60); eGFR For Non-African Americans > 60 (> 60)
[2020-03-21 05:08] LABS: Hypochromasia Present (Not Present); Macrocytosis Present (Not Present)
[2020-03-21 05:09] LABS: Platelet Estimate Normal (Normal); Polychromasia 1+ (Not Present)
[2020-03-21] MEDS: *HR* Metoprolol 5 MG/5 ML VIAL IVP SCH ×3 (05:13→16:25)
[2020-03-21] MEDS: *HR* Heparin 5,000 UNIT/ML VIAL SQ SCH ×2 (05:13→16:25)
[2020-03-21] MEDS: Multivit/Ca/Min/Fe/FA 1 TAB TABLET PO SCH (08:03)
[2020-03-21] MEDS: Ascorbic Acid 500 MG TABLET PO SCH ×2 (08:03→16:25)
[2020-03-21] MEDS: Folic Acid 1 MG TABLET PO SCH (08:03)
[2020-03-21] MEDS: Vitamin B Complex/Vit C/Vit E 1 EACH TABLET PO SCH (08:03)
[2020-03-21] MEDS: *HR* HYDROmorphone (PF) 1 MG/ML SYRINGE IVP PRN ×3 (08:10→18:37)
[2020-03-21] MEDS: Pregabalin 50 MG CAPSULE PO SCH ×2 (10:53→20:17)
[2020-03-22] MEDS: *HR* Metoprolol 5 MG/5 ML VIAL IVP SCH ×5 (01:25→23:27)
[2020-03-22] MEDS: *HR* HYDROmorphone (PF) 1 MG/ML SYRINGE IVP PRN ×3 (04:59→21:35)
[2020-03-22] MEDS: *HR* Heparin 5,000 UNIT/ML VIAL SQ SCH ×2 (05:32→16:47)
[2020-03-22 06:06] LABS: Basophils % 0.3 %; Eosinophils # 0.1 K/mcL (0.0-0.6); Eosinophils % 0.4 %; Hematocrit 25.1 % (37.5-50.1); Hemoglobin 8.9 g/dL (12.9-16.9); Immature Granulocytes % 0.9 % (0-4); Lymphocytes % 8.5 %; Mean Corpuscular HGB Conc 35.5 g/dL (31.6-35.5); Mean Corpuscular Hemoglobin 39.9 pg (28.0-33.3); Mean Platelet Volume 10.6 fL (9.4-12.4); Monocytes % 21.3 %; Neutrophils # 8.2 K/mcL (1.6-8.9); Platelet Count 188 K/mcL (140-400); Red Blood Count 2.23 M/mcL (4.19-5.50); Red Cell Distribution Width 14.1 % (11.5-14.5); Segmented Neutrophils % 68.6 %
[2020-03-22 06:08] LABS: Mean Corpuscular Volume 112.6 fL (83.0-100.0); Monocytes # 2.6 K/mcL (0.0-1.3)
[2020-03-22 06:28] LABS: BUN/Creatinine Ratio 11 (6-26); Blood Urea Nitrogen 5 mg/dL (8-23); Carbon Dioxide 24 mEq/L (23-29); Chloride 96 mEq/L (98-107); Glucose 114 mg/dL (70-105); Magnesium 1.6 mg/dL (1.6-2.6); Osmolality,Calculated 262 (280-300); Sodium 127 mEq/L (136-145); eGFR For African Americans > 60 (> 60); eGFR For Non-African Americans > 60 (> 60)
[2020-03-22] MEDS: Pregabalin 50 MG CAPSULE PO SCH ×2 (10:44→20:43)
[2020-03-22] MEDS: Gabapentin 300 MG CAPSULE PO SCH ×3 (10:44→20:42)
[2020-03-22] MEDS: Ascorbic Acid 500 MG TABLET PO SCH ×2 (11:49→16:47)
[2020-03-22] MEDS: Multivit/Ca/Min/Fe/FA 1 TAB TABLET PO SCH (11:49)
[2020-03-22] MEDS: Vitamin B Complex/Vit C/Vit E 1 EACH TABLET PO SCH (11:49)
[2020-03-22] MEDS: Folic Acid 1 MG TABLET PO SCH (11:49)
[2020-03-22] MEDS: cilostazoL 100 MG TABLET PO SCH (21:35)
[2020-03-23] MEDS: *HR* Metoprolol 5 MG/5 ML VIAL IVP SCH ×2 (05:33→11:59)
[2020-03-23] MEDS: *HR* Heparin 5,000 UNIT/ML VIAL SQ SCH (05:34)
[2020-03-23] MEDS: Pregabalin 50 MG CAPSULE PO SCH (08:10)
[2020-03-23] MEDS: Multivit/Ca/Min/Fe/FA 1 TAB TABLET PO SCH (08:10)
[2020-03-23] MEDS: Ascorbic Acid 500 MG TABLET PO SCH (08:11)
[2020-03-23] MEDS: Vitamin B Complex/Vit C/Vit E 1 EACH TABLET PO SCH (08:11)
[2020-03-23] MEDS: cilostazoL 100 MG TABLET PO SCH (08:11)
[2020-03-23] MEDS: Folic Acid 1 MG TABLET PO SCH (08:11)
[2020-03-23] MEDS: Gabapentin 300 MG CAPSULE PO SCH (08:11)
[2020-03-23] MEDS: *HR* HYDROmorphone (PF) 1 MG/ML SYRINGE IVP PRN ×2 (08:20→13:11)
[2020-03-23] MEDS ORDERED: Pregabalin 50 MG CAPSULE PO SCH (09:00)
[2020-03-23 11:41] VITALS: BP 112/75
== END 2020-03-23 13:23 | DRG 493 ==
LOC: SUATTDRO → EMEROOARM 12:14 → SUATTDRO 18:47 → INTOOBSV 18:47 → 3NENU 18:47 → SUATTDRO 03-19 06:07 → 2NNU 03-19 09:41
PROVIDERS: ADMIT Internal Medicine; ATTEND Internal Medicine

== ENCOUNTER 2020-03-31 13:39 | Inpatient (IN) ==
[~2020-03-31 13:39] MED LIST: *HR* FentaNYL (PF) 100 MCG/2 ML VIAL ONE; *HR* Midazolam HCl 2 MG/2 ML VIAL ONE; *HR* Propofol 200 MG/20 ML VIAL IVP ONE; *HR* Rocuronium Bromide 50 MG/5 ML VIAL ONE; Dexamethasone 4 MG/ML VIAL ONE; Ondansetron 4 MG/2 ML VIAL ONE
[2020-03-31] MEDS ORDERED: Vancomycin 1,000 MG VIAL ONE (13:56)
[2020-03-31] MEDS ORDERED: CeFAZolin Syr 2,000MG/20 ML 2,000 MG/20 ML SYRINGE IVPB ONE (13:57)
[2020-03-31] MEDS ORDERED: Ringers Solution, Lactated 1,000 ML IVC SCH (14:00)
[2020-03-31] MEDS ORDERED: *HR* OxyCODONE Immed Rel 5 MG TABLET PO PRN ×2 (14:27→17:43)
[2020-03-31] MEDS ORDERED: Ondansetron 4 MG/2 ML VIAL IVP ONE (14:27)
[2020-03-31] MEDS ORDERED: *HR* Promethazine 25 MG/ML VIAL IVP PRN (14:27)
[2020-03-31] MEDS ORDERED: *HR* HYDROmorphone PF 0.5 MG/0.5 ML SYRINGE IVP PRN (14:27)
[2020-03-31] MEDS ORDERED: Acetaminophen IV 1,000 MG/100 ML INFUS..BTL IVPB ONE (14:28)
[2020-03-31] MEDS ORDERED: Lidocaine HCL 4 ML Topical Solution (Laryng-O-Jet Kit Sterile Pak) TP ONE (14:35)
[2020-03-31] MEDS ORDERED: *HR* PHENYLEPHRINE 1,000 MCG/10 ML SYRINGE IVP ONE (15:12)
[2020-03-31] MEDS ORDERED: *HR* HYDROMORPHONE 2 MG/ML VIAL ONE (15:20)
[2020-03-31] MEDS ORDERED: *HR* HYDROcodone/Acet 5/325 mg TABLET PO PRN (17:43)
[2020-03-31] MEDS ORDERED: Acetaminophen 325 MG TABLET PO PRN ×2 (17:43)
[2020-03-31] MEDS ORDERED: 0.9 % Sodium Chloride 1,000 ML IVC SCH (17:43)
[2020-03-31] MEDS ORDERED: Naloxone 0.4 MG/ML INJ IVP PRN (17:43)
[2020-03-31] MEDS ORDERED: *HR* Labetalol 20 MG/4 ML SYRINGE IVP PRN (17:43)
[2020-03-31] MEDS: *HR* Metoprolol 5 MG/5 ML VIAL IVP SCH ×2 (18:06→19:30)
[2020-03-31] MEDS: Pregabalin 50 MG CAPSULE PO SCH (19:30)
[2020-03-31] MEDS: *HR* OxyCODONE Immed Rel 5 MG TABLET PO PRN (22:33)
[2020-03-31] MEDS: CeFAZolin 2 GM/120 ML BAG IVPB SCH (22:37)
[2020-04-01 01:32] LABS: Basophils % 0.3 %; Eosinophils % 0.2 %; Lymphocytes % 3.3 %
[2020-04-01 01:34] LABS: Basophils # 0.1 K/mcL (0.0-0.2); Hematocrit 24.9 % (37.5-50.1); Hemoglobin 7.8 g/dL (12.9-16.9); Immature Platelets 5.9 % (1.1-6.1); Lymphocytes # 0.6 K/mcL (0.6-4.6); Mean Corpuscular HGB Conc 31.3 g/dL (31.6-35.5); Mean Corpuscular Hemoglobin 36.1 pg (28.0-33.3); Mean Corpuscular Volume 115.3 fL (83.0-100.0); Mean Platelet Volume 10.5 fL (9.4-12.4); Monocytes # 0.6 K/mcL (0.0-1.3); Monocytes % 3.5 %; Neutrophils # 16.2 K/mcL (1.6-8.9); Platelet Count 518 K/mcL (140-400); Red Blood Count 2.16 M/mcL (4.19-5.50); Red Cell Distribution Width 16.8 % (11.5-14.5); Segmented Neutrophils % 89.7 %; White Blood Count 18.1 K/mcL (4.3-11.1)
[2020-04-01 01:52] LABS: BUN/Creatinine Ratio 20 (6-26); Blood Urea Nitrogen 12 mg/dL (8-23); Calcium 7.8 mg/dL (8.6-10.3); Carbon Dioxide 25 mEq/L (23-29); Chloride 98 mEq/L (98-107); Glucose 168 mg/dL (70-105); Osmolality,Calculated 276 (280-300); Potassium 5.1 mEq/L (3.5-5.1); Sodium 131 mEq/L (136-145); eGFR For African Americans > 60 (> 60); eGFR For Non-African Americans > 60 (> 60)
[2020-04-01 02:15] LABS: Anisocytosis 1+ (Not Present); Poikilocytosis 1+ (Not Present); Polychromasia 1+ (Not Present)
[2020-04-01 02:16] LABS: Large Platelets Present (Not Present); Macrocytosis Present (Not Present); Platelet Estimate Increased (Normal)
[2020-04-01] MEDS: CeFAZolin 2 GM/120 ML BAG IVPB SCH (04:39)
[2020-04-01] MEDS: *HR* Metoprolol 5 MG/5 ML VIAL IVP SCH ×4 (04:41→23:08)
[2020-04-01] MEDS: *HR* Heparin 5,000 UNIT/ML VIAL SQ SCH ×2 (04:41→17:03)
[2020-04-01] MEDS ORDERED: *HR* Heparin 5,000 UNIT/ML VIAL SQ SCH (06:00)
[2020-04-01] MEDS: Pregabalin 50 MG CAPSULE PO SCH ×3 (08:01→19:53)
[2020-04-01] MEDS: *HR* OxyCODONE Immed Rel 5 MG TABLET PO PRN ×2 (08:03→13:12)
[2020-04-01] MEDS: *HR* HYDROcodone/Acet 5/325 mg TABLET PO PRN (11:29)
[2020-04-02] MEDS: *HR* OxyCODONE Immed Rel 5 MG TABLET PO PRN ×3 (03:05→16:22)
[2020-04-02] MEDS: *HR* Heparin 5,000 UNIT/ML VIAL SQ SCH (06:00)
[2020-04-02] MEDS: *HR* Metoprolol 5 MG/5 ML VIAL IVP SCH ×2 (06:00→11:37)
[2020-04-02] MEDS: Pregabalin 50 MG CAPSULE PO SCH ×2 (07:39→16:22)
[2020-04-02] MEDS: *HR* HYDROcodone/Acet 5/325 mg TABLET PO PRN (11:27)
[2020-04-02 16:33] VITALS: BP 103/65
== END 2020-04-02 17:15 | DRG 305 ==
LOC: SAMDAY 13:39 → 2NNU 17:28
PROVIDERS: ADMIT Surgery; ATTEND Surgery

== ENCOUNTER 2020-07-26 14:59 | Inpatient (IN) ==
[2020-07-26 15:42] LABS: INR 1.5; Prothrombin Time 16.8 Seconds (9.4-12.1)
[2020-07-26 16:06] LABS: Basophils % 0.2 %; Eosinophils % 0.1 %; Hematocrit 39.8 % (37.5-50.1); Hemoglobin 14.1 g/dL (12.9-16.9); Immature Granulocytes % 1.6 % (0-4); Lymphocytes # 0.4 K/mcL (0.6-4.6); Lymphocytes % 1.6 %; Mean Corpuscular HGB Conc 35.4 g/dL (31.6-35.5); Mean Corpuscular Hemoglobin 32.6 pg (28.0-33.3); Mean Corpuscular Volume 92.1 fL (83.0-100.0); Mean Platelet Volume 12.5 fL (9.4-12.4); Monocytes # 1.4 K/mcL (0.0-1.3); Monocytes % 6.2 %; Neutrophils # 20.7 K/mcL (1.6-8.9); Platelet Count 234 K/mcL (140-400); Red Blood Count 4.32 M/mcL (4.19-5.50); Red Cell Distribution Width 17.7 % (11.5-14.5); Segmented Neutrophils % 90.3 %; White Blood Count 22.9 K/mcL (4.3-11.1)
[2020-07-26] MEDS ORDERED: *HR* Metoprolol 5 MG/5 ML VIAL IVP ONE (16:06)
[2020-07-26] MEDS ORDERED: cefTRIAXone 1,000 MG in 0.9 % Sodium Chloride Mini Bag 100 ML IVPB ONE (16:18)
[2020-07-26] MEDS ORDERED: Azithromycin 500 MG in 0.9 % Sodium Chloride 250 ML IVPB ONE (16:18)
[2020-07-26] MEDS ORDERED: 0.9 % Sodium Chloride 1,000 ML IVC ONE (16:25)
[2020-07-26 16:30] LABS: BUN/Creatinine Ratio 19 (6-26); Blood Urea Nitrogen 32 mg/dL (8-23); Calcium 8.6 mg/dL (8.6-10.3); Carbon Dioxide 23 mEq/L (23-29); Chloride 84 mEq/L (98-107); Glucose 116 mg/dL (70-105); Osmolality,Calculated 260 (280-300); Potassium 3.1 mEq/L (3.5-5.1); Sodium 121 mEq/L (136-145); Troponin I < 0.03 ng/mL (< 0.04); eGFR For African Americans 50 (> 60); eGFR For Non-African Americans 42 (> 60)
[2020-07-26] MEDS ORDERED: Ipratropium/Albuterol Neb 3 ML IH ONE (17:21)
[2020-07-26] MEDS: DilTIAZem 50 MG/50 ML IV.SOLN IVC SCH (18:00)
[2020-07-26 18:14] LABS: Adenovirus Not Detected (Not Detect); Bordetella Pertussis Not Detected (Not Detect); Chlamydophila pneumoniae Not Detected (Not Detect); Coronavirus 229E Not Detected (Not Detect); Coronavirus HKU1 Not Detected (Not Detect); Coronavirus NL63 Not Detected (Not Detect); Coronavirus OC43 Not Detected (Not Detect); Human Metapneumovirus Not Detected (Not Detect); Human Rhinovirus/Enterovirus Not Detected (Not Detect); Influenza A Subtype 2009 H1 Not Detected (Not Detect); Influenza B Not Detected (Not Detect); Mycoplasma pneumoniae Not Detected (Not Detect); Parainfluenza Virus 1 Not Detected (Not Detect); Parainfluenza Virus 2 Not Detected (Not Detect); Parainfluenza Virus 3 Not Detected (Not Detect); Parainfluenza Virus 4 Not Detected (Not Detect); Respiratory Syncytial Virus Not Detected (Not Detect); SARS-CoV-2 Not Detected (Not Detect)
[2020-07-26] MEDS ORDERED: Naloxone 0.4 MG/ML INJ IVP PRN (20:08)
[2020-07-26] MEDS: Nicotine 14 MG PATCH.TD24 TD SCH (22:38)
[2020-07-26] MEDS: MethylPREDNISolone 40 MG/ML VIAL IVP SCH (22:38)
[2020-07-26] MEDS ORDERED: *HR* LORazepam 2 MG/ML VIAL IVP PRN ×3 (22:54)
[2020-07-26] MEDS ORDERED: Ipratropium/Albuterol Neb 3 ML IH PRN (23:00)
[2020-07-26] MEDS: Budesonide/Formoterol 160/4.5 1 PUFF INH IH SCH (23:50)
[2020-07-27] MEDS: DilTIAZem 50 MG/50 ML IV.SOLN IVC SCH ×2 (00:31→05:25)
[2020-07-27 01:01] LABS: Calcium 7.6 mg/dL (8.6-10.3); Potassium 2.5 mEq/L (3.5-5.1)
[2020-07-27] MEDS ORDERED: Potassium Chloride 40 MEQ, Lidocaine 1% 2 ML in 0.9 % Sodium Chloride 500 ML IVPB ONE ×2 (01:19→12:26)
[2020-07-27 01:59] LABS: Magnesium 1.4 mg/dL (1.6-2.6)
[2020-07-27] MEDS: 0.9 % Sodium Chloride 1,000 ML IVC SCH ×2 (02:41→12:17)
[2020-07-27 03:14] LABS: Hematocrit 32.4 % (37.5-50.1); Hemoglobin 11.4 g/dL (12.9-16.9); Mean Corpuscular HGB Conc 35.2 g/dL (31.6-35.5); Mean Corpuscular Hemoglobin 31.8 pg (28.0-33.3); Mean Corpuscular Volume 90.5 fL (83.0-100.0); Platelet Count 213 K/mcL (140-400); Red Blood Count 3.58 M/mcL (4.19-5.50); Red Cell Distribution Width 17.7 % (11.5-14.5); White Blood Count 20.2 K/mcL (4.3-11.1)
[2020-07-27 03:30] LABS: Sodium, Urine 15.9 mEq/L
[2020-07-27 03:32] LABS: Magnesium 1.4 mg/dL (1.6-2.6); Phosphorous 3.1 mg/dL (2.7-4.5)
[2020-07-27 03:33] LABS: Calcium 7.8 mg/dL (8.6-10.3); Potassium 2.7 mEq/L (3.5-5.1)
[2020-07-27 04:07] LABS: Bilirubin,Urine Negative (Negative); Blood,Urine Small (Negative); Clarity,Urine Clear (Clear); Color,Urine Yellow (Yellow); Glucose,Urine (UA) Normal (Normal); Ketones,Urine Negative (Negative); Leukocyte Esterase,Urine Small (Negative); Nitrite,Urine Negative (Negative); PH,Urine 6.5 pH Units (5.0-8.0); Protein,Urine 30 mg/dL (Neg-Trace); Specific Gravity,Urine 1.015 (1.010-1.025); Urobilinogen,Urine Normal (Normal)
[2020-07-27 04:14] LABS: RBC,Urine 0-3 per hpf (0-3); Squamous Epithelial Cell,Urine Few per hpf (None-Few)
[2020-07-27] MEDS: *HR* Heparin 5,000 UNIT/ML VIAL SQ SCH ×2 (05:57→17:07)
[2020-07-27] MEDS: Budesonide/Formoterol 160/4.5 1 PUFF INH IH SCH ×2 (07:28→20:20)
[2020-07-27 07:45] LABS: Acinetobacter baumannii by PCR Not Detected (Not Detect); Enterobacter cloacae Cmplx PCR Not Detected (Not Detect); Enterococcus by PCR Not Detected (Not Detect); Escherichia coli by PCR DETECTED (Not Detect); Klebsiella oxytoca by PCR Not Detected (Not Detect); Klebsiella pneumoniae by PCR Not Detected (Not Detect); Proteus by PCR Not Detected (Not Detect); Serratia marcescens by PCR Not Detected (Not Detect); Staphylococcus aureus by PCR Not Detected (Not Detect); Staphylococcus by PCR Not Detected (Not Detect); Streptococcus agalactiae(B)PCR Not Detected (Not Detect); Streptococcus by PCR Not Detected (Not Detect); Streptococcus pneumoniae PCR Not Detected (Not Detect); Streptococcus pyogenes (A) PCR Not Detected (Not Detect); blaKPC Carbapenem-Resist Gene Not Detected (Not Detect); mecA Methicillin-Resist Gene Not Detected (Not Detect); vanA/B Vancomycin-Resist Genes Not Detected (Not Detect)
[2020-07-27 07:46] LABS: Candida albicans by PCR Not Detected (Not Detect); Candida glabrata by PCR Not Detected (Not Detect); Candida krusei by PCR Not Detected (Not Detect); Candida parapsilosis by PCR Not Detected (Not Detect); Candida tropicalis by PCR Not Detected (Not Detect); Pseudomonas aeruginosa by PCR Not Detected (Not Detect)
[2020-07-27] MEDS: Thiamine (B-1) 100 MG TABLET PO SCH (08:52)
[2020-07-27] MEDS: Folic Acid 1 MG TABLET PO SCH (08:52)
[2020-07-27] MEDS: Nicotine 14 MG PATCH.TD24 TD SCH (08:53)
[2020-07-27] MEDS: MethylPREDNISolone 40 MG/ML VIAL IVP SCH (08:53)
[2020-07-27] MEDS: Vitamin B Complex/Vit C/Vit E 1 EACH TABLET PO SCH (09:28)
[2020-07-27] MEDS ORDERED: Potassium Chloride Elixir 20 MEQ/15 ML UDC PO SCH (12:26)
[2020-07-27] MEDS ORDERED: cilostazoL 100 MG TABLET PO SCH (12:30)
[2020-07-27] MEDS ORDERED: cefTRIAXone 2,000 MG in Water for inj. (sterile) 20 ML IVP SCH (13:00)
[2020-07-27] MEDS: Metoprolol XL (24 HR) Succ 25 MG TAB.ER.24H PO SCH (13:36)
[2020-07-27 13:42] LABS: Albumin 2.9 g/dL (3.5-5.7); Bilirubin,Direct 0.1 mg/dL (0.0-0.2); Bilirubin,Indirect 0.2 mg/dL (0.0-1.0); Bilirubin,Total 0.3 mg/dL (0.3-1.0); Globulin 2.8 g/dL (2.4-3.5); Total Protein 5.7 g/dL (6.4-8.9)
[2020-07-27] MEDS: cilostazoL 100 MG TABLET PO SCH ×2 (15:00→21:27)
[2020-07-27] MEDS: Doxycycline 100 MG in 0.9 % Sodium Chloride Mini Bag 100 ML IVPB SCH (15:04)
[2020-07-27] MEDS ORDERED: cefTRIAXone 1,000 MG in Water for inj. (sterile) 10 ML IVP ONE (16:00)
[2020-07-27] MEDS: Ipratropium/Albuterol Neb 3 ML IH SCH ×2 (16:26→20:20)
[2020-07-27] MEDS ORDERED: MethylPREDNISolone 40 MG/ML VIAL IVP SCH (21:17)
[2020-07-28] MEDS: Ipratropium/Albuterol Neb 3 ML IH SCH ×7 (00:52→23:24)
[2020-07-28] MEDS: 0.9 % Sodium Chloride 1,000 ML IVC SCH ×3 (01:01→17:06)
[2020-07-28] MEDS: *HR* Heparin 5,000 UNIT/ML VIAL SQ SCH ×2 (07:13→17:06)
[2020-07-28] MEDS: Doxycycline 100 MG in 0.9 % Sodium Chloride Mini Bag 100 ML IVPB SCH (08:18)
[2020-07-28] MEDS: Nicotine 14 MG PATCH.TD24 TD SCH (08:18)
[2020-07-28] MEDS: Budesonide/Formoterol 160/4.5 1 PUFF INH IH SCH ×2 (08:20→19:52)
[2020-07-28] MEDS: Vitamin B Complex/Vit C/Vit E 1 EACH TABLET PO SCH (08:26)
[2020-07-28] MEDS: Thiamine (B-1) 100 MG TABLET PO SCH (08:26)
[2020-07-28] MEDS: predniSONE 20 MG TABLET PO SCH (08:27)
[2020-07-28] MEDS: Folic Acid 1 MG TABLET PO SCH (08:27)
[2020-07-28] MEDS: Metoprolol XL (24 HR) Succ 25 MG TAB.ER.24H PO SCH (08:27)
[2020-07-28] MEDS: cilostazoL 100 MG TABLET PO SCH ×2 (08:27→20:12)
[2020-07-28 09:02] LABS: Hematocrit 36.7 % (37.5-50.1)
[2020-07-28 09:03] LABS: Hemoglobin 12.2 g/dL (12.9-16.9); Mean Corpuscular HGB Conc 33.2 g/dL (31.6-35.5); Mean Corpuscular Hemoglobin 31.3 pg (28.0-33.3); Mean Corpuscular Volume 94.1 fL (83.0-100.0); Mean Platelet Volume 11.9 fL (9.4-12.4); Platelet Count 340 K/mcL (140-400); Red Cell Distribution Width 18.1 % (11.5-14.5); White Blood Count 28.4 K/mcL (4.3-11.1)
[2020-07-28 09:23] LABS: BUN/Creatinine Ratio 29 (6-26); Blood Urea Nitrogen 36 mg/dL (8-23); Calcium 8.4 mg/dL (8.6-10.3); Carbon Dioxide 21 mEq/L (23-29); Chloride 99 mEq/L (98-107); Glucose 162 mg/dL (70-105); Osmolality,Calculated 278 (280-300); Sodium 128 mEq/L (136-145); eGFR For African Americans > 60 (> 60); eGFR For Non-African Americans 58 (> 60)
[2020-07-28 10:57] LABS: Amylase 49 Units/L (29-103); Lipase 35 Units/L (11-82)
[2020-07-28] MEDS ORDERED: Acetaminophen 325 MG TABLET PO ONE (16:09)
[2020-07-28 18:07] LABS: Amylase 55 Units/L (29-103); Lipase 26 Units/L (11-82)
[2020-07-28] MEDS: Piperacillin/Tazobactam 3.375 GM in 0.9 % Sodium Chloride Mini Bag 100 ML IVPB SCH (23:25)
[2020-07-29] MEDS: Ipratropium/Albuterol Neb 3 ML IH SCH ×6 (02:11→23:23)
[2020-07-29] MEDS: 0.9 % Sodium Chloride 1,000 ML IVC SCH (06:11)
[2020-07-29] MEDS: *HR* Heparin 5,000 UNIT/ML VIAL SQ SCH ×2 (06:11→17:56)
[2020-07-29] MEDS: Budesonide/Formoterol 160/4.5 1 PUFF INH IH SCH ×2 (08:00→20:06)
[2020-07-29] MEDS ORDERED: Piperacillin/Tazobactam 3.375 GM VIAL ONE (08:09)
[2020-07-29] MEDS: cilostazoL 100 MG TABLET PO SCH ×2 (08:17→20:18)
[2020-07-29] MEDS: Metoprolol XL (24 HR) Succ 25 MG TAB.ER.24H PO SCH (08:17)
[2020-07-29] MEDS: predniSONE 20 MG TABLET PO SCH (08:18)
[2020-07-29] MEDS: Nicotine 14 MG PATCH.TD24 TD SCH (08:18)
[2020-07-29] MEDS: Thiamine (B-1) 100 MG TABLET PO SCH (08:18)
[2020-07-29] MEDS: Folic Acid 1 MG TABLET PO SCH (08:18)
[2020-07-29] MEDS: Vitamin B Complex/Vit C/Vit E 1 EACH TABLET PO SCH (08:18)
[2020-07-29] MEDS: Piperacillin/Tazobactam 3.375 GM in 0.9 % Sodium Chloride Mini Bag 100 ML IVPB SCH (08:19)
[2020-07-29 08:23] LABS: Basophils % 0.1 %; Hematocrit 27.9 % (37.5-50.1); Hemoglobin 9.4 g/dL (12.9-16.9); Immature Granulocytes % 3.1 % (0-4); Lymphocytes # 0.8 K/mcL (0.6-4.6); Lymphocytes % 3.1 %; Mean Corpuscular HGB Conc 33.7 g/dL (31.6-35.5); Mean Corpuscular Hemoglobin 32.1 pg (28.0-33.3); Mean Corpuscular Volume 95.2 fL (83.0-100.0); Mean Platelet Volume 11.3 fL (9.4-12.4); Monocytes # 2.6 K/mcL (0.0-1.3); Monocytes % 10.3 %; Neutrophils # 20.9 K/mcL (1.6-8.9); Platelet Count 363 K/mcL (140-400); Red Blood Count 2.93 M/mcL (4.19-5.50); Red Cell Distribution Width 18.2 % (11.5-14.5); Segmented Neutrophils % 83.4 %; White Blood Count 25.1 K/mcL (4.3-11.1)
[2020-07-29 08:37] LABS: BUN/Creatinine Ratio 23 (6-26); Blood Urea Nitrogen 32 mg/dL (8-23); Calcium 7.4 mg/dL (8.6-10.3); Carbon Dioxide 20 mEq/L (23-29); Chloride 104 mEq/L (98-107); Glucose 124 mg/dL (70-105); Magnesium 1.3 mg/dL (1.6-2.6); Osmolality,Calculated 278 (280-300); Potassium 3.7 mEq/L (3.5-5.1); Sodium 130 mEq/L (136-145); eGFR For African Americans > 60 (> 60); eGFR For Non-African Americans 51 (> 60)
[2020-07-29 09:09] LABS: Toxic Granulation Present (Not Present)
[2020-07-29 09:11] LABS: Platelet Estimate Normal (Normal)
[2020-07-29 09:15] LABS: Anisocytosis 1+ (Not Present)
[2020-07-29] MEDS: Ertapenem 1,000 MG in 0.9 % Sodium Chloride Mini Bag 100 ML IVPB SCH (14:08)
[2020-07-30] MEDS: 0.9 % Sodium Chloride 1,000 ML IVC SCH ×2 (02:20→12:23)
[2020-07-30] MEDS: Ipratropium/Albuterol Neb 3 ML IH SCH ×2 (03:57→07:56)
[2020-07-30] MEDS: *HR* Heparin 5,000 UNIT/ML VIAL SQ SCH (05:14)
[2020-07-30 06:06] LABS: Basophils # 0.1 K/mcL (0.0-0.2); Basophils % 0.2 %; Eosinophils % 0.1 %; Hematocrit 30.1 % (37.5-50.1); Hemoglobin 9.6 g/dL (12.9-16.9); Immature Granulocytes % 4.7 % (0-4); Lymphocytes # 1.1 K/mcL (0.6-4.6); Lymphocytes % 5.1 %; Mean Corpuscular HGB Conc 31.9 g/dL (31.6-35.5); Mean Corpuscular Hemoglobin 31.3 pg (28.0-33.3); Mean Platelet Volume 12.4 fL (9.4-12.4); Monocytes # 1.8 K/mcL (0.0-1.3); Monocytes % 8.6 %; Neutrophils # 17.2 K/mcL (1.6-8.9); Platelet Count 408 K/mcL (140-400); Red Blood Count 3.07 M/mcL (4.19-5.50); Segmented Neutrophils % 81.3 %; White Blood Count 21.2 K/mcL (4.3-11.1)
[2020-07-30 06:19] LABS: BUN/Creatinine Ratio 21 (6-26); Blood Urea Nitrogen 29 mg/dL (8-23); Calcium 7.5 mg/dL (8.6-10.3); Carbon Dioxide 23 mEq/L (23-29); Chloride 102 mEq/L (98-107); Glucose 140 mg/dL (70-105); Osmolality,Calculated 282 (280-300); Potassium 3.8 mEq/L (3.5-5.1); Sodium 132 mEq/L (136-145); eGFR For African Americans > 60 (> 60); eGFR For Non-African Americans 52 (> 60)
[2020-07-30] MEDS: Budesonide/Formoterol 160/4.5 1 PUFF INH IH SCH (07:56)
[2020-07-30] MEDS: Vitamin B Complex/Vit C/Vit E 1 EACH TABLET PO SCH (08:35)
[2020-07-30] MEDS: Folic Acid 1 MG TABLET PO SCH (08:35)
[2020-07-30] MEDS: Metoprolol XL (24 HR) Succ 25 MG TAB.ER.24H PO SCH (08:35)
[2020-07-30] MEDS: Thiamine (B-1) 100 MG TABLET PO SCH (08:35)
[2020-07-30] MEDS: predniSONE 20 MG TABLET PO SCH (08:36)
[2020-07-30] MEDS: Nicotine 14 MG PATCH.TD24 TD SCH (08:37)
[2020-07-30] MEDS: Ertapenem 1,000 MG in 0.9 % Sodium Chloride Mini Bag 100 ML IVPB SCH (08:37)
[2020-07-30] MEDS: cilostazoL 100 MG TABLET PO SCH (08:37)
[2020-07-30] MEDS ORDERED: Ipratropium/Albuterol Neb 3 ML IH PRN (08:54)
[2020-07-30] MEDS ORDERED: Ibuprofen 600 MG TABLET PO ONE (08:56)
[2020-07-30 11:27] VITALS: BP 125/74
== END 2020-07-30 16:37 | disposition home health service (06) | DRG 720 ==
LOC: CDU 14:59 → EMEROOARM 14:59 → CDU 19:53 → 3ANU 07-28 15:22
PROVIDERS: ADMIT Internal Medicine; ATTEND Internal Medicine

== ENCOUNTER 2021-02-15 06:23 | Inpatient (IN) ==
[2021-02-15] MEDS ORDERED: Ondansetron 4 MG/2 ML VIAL IVP ONE (07:14)
[2021-02-15] MEDS ORDERED: 0.9 % Sodium Chloride 1,000 ML IVC ONE (07:14)
[2021-02-15] MEDS ORDERED: Isovue-370 500 ML BOTTLE IVP ONE ×2 (07:21→08:44)
[2021-02-15 07:35] LABS: Basophils # 0.1 K/mcL (0.0-0.2); Basophils % 0.7 %; Eosinophils # 0.1 K/mcL (0.0-0.6); Eosinophils % 0.9 %; Hematocrit 44.6 % (37.5-50.1); Hemoglobin 15.3 g/dL (12.9-16.9); Immature Granulocytes % 2.8 % (0-4); Lymphocytes # 1.8 K/mcL (0.6-4.6); Lymphocytes % 12.2 %; Mean Corpuscular HGB Conc 34.3 g/dL (31.6-35.5); Mean Corpuscular Hemoglobin 30.2 pg (28.0-33.3); Mean Corpuscular Volume 88.1 fL (83.0-100.0); Mean Platelet Volume 10.8 fL (9.4-12.4); Monocytes # 2.3 K/mcL (0.0-1.3); Monocytes % 15.5 %; Neutrophils # 10.2 K/mcL (1.6-8.9); Platelet Count 259 K/mcL (140-400); Red Blood Count 5.06 M/mcL (4.19-5.50); Red Cell Distribution Width 15.2 % (11.5-14.5); Segmented Neutrophils % 67.9 %
[2021-02-15 07:51] LABS: Alanine Aminotransferase 14 Units/L (7-52); Albumin 3.7 g/dL (3.5-5.7); Albumin/Globulin Ratio 1.4 (1.1-2.2); Alkaline Phosphatase 116 Units/L (34-104); Aspartate Amino Transferase 14 Units/L (13-39); BUN/Creatinine Ratio 23 (6-26); Bilirubin,Total 0.5 mg/dL (0.3-1.0); Blood Urea Nitrogen 20 mg/dL (8-23); Calcium 9.1 mg/dL (8.6-10.3); Carbon Dioxide 40 mEq/L (23-29); Chloride 81 mEq/L (98-107); Globulin 2.7 g/dL (2.4-3.5); Glucose 122 mg/dL (70-105); Lipase 8 Units/L (11-82); Osmolality,Calculated 268 (280-300); Sodium 127 mEq/L (136-145); Total Protein 6.4 g/dL (6.4-8.9); eGFR For African Americans > 60 (> 60); eGFR For Non-African Americans > 60 (> 60)
[2021-02-15 08:56] LABS: VBG HCO3 32 mEq/L (21-27); VBG PCO2 51 mmHg (41-51); VBG PH 7.41 pH Units (7.32-7.42); VBG PO2 48 mmHg (25-50)
[2021-02-15 09:22] LABS: Troponin I < 0.03 ng/mL (< 0.04)
[2021-02-15 11:09] LABS: Bacteria,Urine Moderate per hpf (None-Few); Bilirubin,Urine Negative (Negative); Blood,Urine Small (Negative); Clarity,Urine Turbid (Clear); Color,Urine Yellow (Yellow); Glucose,Urine (UA) Normal (Normal); Ketones,Urine Negative (Negative); Leukocyte Esterase,Urine Large (Negative); Nitrite,Urine Positive (Negative); PH,Urine 6.5 pH Units (5.0-8.0); Protein,Urine Trace mg/dL (Neg-Trace); RBC,Urine 15-30 per hpf (0-3); Renal Epithelial Cells,Urine Few per hpf (None-Few); Specific Gravity,Urine > 1.030 (1.010-1.025); Transitional Epi Cells,Urine Few per hpf (None-Few); Urobilinogen,Urine Normal (Normal); WBC,Urine TNTC per hpf (0-3)
[2021-02-15] MEDS ORDERED: Naloxone 0.4 MG/ML INJ IVP PRN (11:14)
[2021-02-15] MEDS ORDERED: methylPREDNISolone 125 MG/2 ML VIAL IVP ONE (13:28)
[2021-02-15] MEDS: cefTRIAXone 1,000 MG in Water for inj. (sterile) 10 ML IVP SCH (13:33)
[2021-02-15] MEDS: 0.9 % Sodium Chloride 1,000 ML IVC SCH ×2 (13:33→22:24)
[2021-02-15] MEDS: Pantoprazole 40 MG VIAL IVP SCH ×2 (13:33→17:26)
[2021-02-15] MEDS: Nicotine 21 MG PATCH.TD24 TD SCH (14:46)
[2021-02-15] MEDS: Ipratropium/Albuterol Neb 3 ML IH SCH ×4 (15:25→23:36)
[2021-02-15 15:58] LABS: BUN/Creatinine Ratio 23 (6-26); Blood Urea Nitrogen 19 mg/dL (8-23); Calcium 8.2 mg/dL (8.6-10.3); Carbon Dioxide 29 mEq/L (23-29); Chloride 84 mEq/L (98-107); Glucose 113 mg/dL (70-105); Osmolality,Calculated 263 (280-300); Potassium 3.6 mEq/L (3.5-5.1); Sodium 125 mEq/L (136-145); eGFR For African Americans > 60 (> 60); eGFR For Non-African Americans > 60 (> 60)
[2021-02-15 16:39] LABS: Alanine Aminotransferase 9 Units/L (7-52); Albumin 2.9 g/dL (3.5-5.7); Albumin/Globulin Ratio 1.4 (1.1-2.2); Alkaline Phosphatase 85 Units/L (34-104); Aspartate Amino Transferase 9 Units/L (13-39); BUN/Creatinine Ratio 19 (6-26); Bilirubin,Total 0.3 mg/dL (0.3-1.0); Blood Urea Nitrogen 15 mg/dL (8-23); Calcium 7.9 mg/dL (8.6-10.3); Carbon Dioxide 33 mEq/L (23-29); Chloride 87 mEq/L (98-107); Globulin 2.1 g/dL (2.4-3.5); Glucose 115 mg/dL (70-105); Osmolality,Calculated 264 (280-300); Potassium 3.6 mEq/L (3.5-5.1); Sodium 126 mEq/L (136-145); eGFR For African Americans > 60 (> 60); eGFR For Non-African Americans > 60 (> 60)
[2021-02-15 17:45] LABS: Adenovirus Not Detected (Not Detect); Bordetella Pertussis Not Detected (Not Detect); Chlamydophila pneumoniae Not Detected (Not Detect); Coronavirus 229E Not Detected (Not Detect); Coronavirus HKU1 Not Detected (Not Detect); Coronavirus NL63 Not Detected (Not Detect); Coronavirus OC43 Not Detected (Not Detect); Human Metapneumovirus Not Detected (Not Detect); Human Rhinovirus/Enterovirus Not Detected (Not Detect); Influenza A Subtype 2009 H1 Not Detected (Not Detect); Influenza B Not Detected (Not Detect); Mycoplasma pneumoniae Not Detected (Not Detect); Parainfluenza Virus 1 Not Detected (Not Detect); Parainfluenza Virus 2 Not Detected (Not Detect); Parainfluenza Virus 3 Not Detected (Not Detect); Parainfluenza Virus 4 Not Detected (Not Detect); Respiratory Syncytial Virus Not Detected (Not Detect)
[2021-02-15] MEDS ORDERED: *HR* Heparin 5,000 UNIT/ML VIAL SQ SCH (18:00)
[2021-02-15 19:25] LABS: BUN/Creatinine Ratio 17 (6-26); Blood Urea Nitrogen 15 mg/dL (8-23); Calcium 8.1 mg/dL (8.6-10.3); Carbon Dioxide 31 mEq/L (23-29); Chloride 86 mEq/L (98-107); Glucose 219 mg/dL (70-105); Osmolality,Calculated 272 (280-300); Potassium 3.6 mEq/L (3.5-5.1); Sodium 127 mEq/L (136-145); eGFR For African Americans > 60 (> 60); eGFR For Non-African Americans > 60 (> 60)
[2021-02-15] MEDS ORDERED: Ondansetron 4 MG/2 ML VIAL IVP PRN (21:48)
[2021-02-15] MEDS: *HR* OxyCODONE Immed Rel 15 MG TABLET PO PRN (22:22)
[2021-02-15] MEDS: Melatonin 3 MG TABLET PO SCH (22:23)
[2021-02-16 01:26] LABS: BUN/Creatinine Ratio 17 (6-26); Blood Urea Nitrogen 13 mg/dL (8-23); Calcium 8.1 mg/dL (8.6-10.3); Carbon Dioxide 30 mEq/L (23-29); Chloride 88 mEq/L (98-107); Glucose 183 mg/dL (70-105); Osmolality,Calculated 265 (280-300); Potassium 3.6 mEq/L (3.5-5.1); Sodium 125 mEq/L (136-145); eGFR For African Americans > 60 (> 60); eGFR For Non-African Americans > 60 (> 60)
[2021-02-16] MEDS: Ipratropium/Albuterol Neb 3 ML IH SCH ×5 (03:10→20:04)
[2021-02-16] MEDS: MethylPREDNISolone 40 MG/ML VIAL IVP SCH ×2 (05:52→16:35)
[2021-02-16] MEDS: Pantoprazole 40 MG VIAL IVP SCH ×2 (05:52→16:34)
[2021-02-16] MEDS: Nicotine 21 MG PATCH.TD24 TD SCH (07:54)
[2021-02-16] MEDS: cefTRIAXone 1,000 MG in Water for inj. (sterile) 10 ML IVP SCH (07:55)
[2021-02-16] MEDS: Apixaban 5 MG TABLET PO SCH ×2 (07:55→20:16)
[2021-02-16] MEDS: 0.9 % Sodium Chloride 1,000 ML IVC SCH ×2 (07:56→15:48)
[2021-02-16] MEDS: cilostazoL 100 MG TABLET PO SCH ×2 (07:56→20:17)
[2021-02-16] MEDS: Pregabalin 75 MG CAPSULE PO SCH ×2 (07:56→20:16)
[2021-02-16] MEDS: *HR* OxyCODONE Immed Rel 15 MG TABLET PO PRN ×4 (08:04→23:15)
[2021-02-16] MEDS ORDERED: Isovue-370 500 ML BOTTLE IVP ONE (11:28)
[2021-02-16 13:08] LABS: INR 1.2; Prothrombin Time 13.6 Seconds (9.4-12.1)
[2021-02-16] MEDS: Melatonin 3 MG TABLET PO SCH (20:17)
[2021-02-16] MEDS ORDERED: Ipratropium/Albuterol Neb 3 ML IH PRN (20:43)
[2021-02-17] MEDS: *HR* OxyCODONE Immed Rel 15 MG TABLET PO PRN ×5 (03:54→23:19)
[2021-02-17] MEDS: Pantoprazole 40 MG VIAL IVP SCH (06:15)
[2021-02-17] MEDS: MethylPREDNISolone 40 MG/ML VIAL IVP SCH (06:16)
[2021-02-17] MEDS: Nicotine 21 MG PATCH.TD24 TD SCH (08:53)
[2021-02-17] MEDS: Pregabalin 75 MG CAPSULE PO SCH ×2 (08:54→19:47)
[2021-02-17] MEDS: cefTRIAXone 1,000 MG in Water for inj. (sterile) 10 ML IVP SCH (08:54)
[2021-02-17] MEDS: cilostazoL 100 MG TABLET PO SCH ×2 (08:54→19:47)
[2021-02-17] MEDS: 0.9 % Sodium Chloride 1,000 ML IVC SCH (08:57)
[2021-02-17] MEDS: Apixaban 5 MG TABLET PO SCH ×2 (08:58→19:47)
[2021-02-17 09:06] LABS: Basophils # 0.1 K/mcL (0.0-0.2); Basophils % 0.4 %; Hematocrit 32.7 % (37.5-50.1); Hemoglobin 11.2 g/dL (12.9-16.9); Immature Granulocytes % 4.7 % (0-4); Lymphocytes # 0.6 K/mcL (0.6-4.6); Lymphocytes % 4.4 %; Mean Corpuscular HGB Conc 34.3 g/dL (31.6-35.5); Mean Corpuscular Hemoglobin 29.6 pg (28.0-33.3); Mean Corpuscular Volume 86.5 fL (83.0-100.0); Mean Platelet Volume 9.8 fL (9.4-12.4); Monocytes % 6.6 %; Neutrophils # 12.3 K/mcL (1.6-8.9); Platelet Count 256 K/mcL (140-400); Red Blood Count 3.78 M/mcL (4.19-5.50); Red Cell Distribution Width 15.1 % (11.5-14.5); Segmented Neutrophils % 83.9 %; White Blood Count 14.6 K/mcL (4.3-11.1)
[2021-02-17 09:30] LABS: BUN/Creatinine Ratio 17 (6-26); Blood Urea Nitrogen 13 mg/dL (8-23); Calcium 8.1 mg/dL (8.6-10.3); Carbon Dioxide 29 mEq/L (23-29); Chloride 93 mEq/L (98-107); Glucose 124 mg/dL (70-105); Magnesium 1.3 mg/dL (1.6-2.6); Osmolality,Calculated 270 (280-300); Phosphorous 1.9 mg/dL (2.7-4.5); Potassium 3.8 mEq/L (3.5-5.1); Sodium 129 mEq/L (136-145); eGFR For African Americans > 60 (> 60); eGFR For Non-African Americans > 60 (> 60)
[2021-02-17 09:39] LABS: Thyroid Stimulating Hormone 1.557 mcIU/mL (0.340-5.600)
[2021-02-17 09:53] LABS: Influenza A PCR Negative (Negative); Influenza B PCR Negative (Negative); Resp. Syncytial Virus PCR Negative (Negative)
[2021-02-17 10:08] LABS: SARS-CoV-2 by PCR (In House) Negative (Negative)
[2021-02-17] MEDS ORDERED: Magnesium Sulfate 1 GM/102 ML PIGGYBACK IVPB ONE (10:42)
[2021-02-17] MEDS ORDERED: *HR* Propofol 200 MG/20 ML VIAL IVP ONE (13:54)
[2021-02-17] MEDS ORDERED: Lidocaine -MPF 2% 2 ML VIAL ONE (14:40)
[2021-02-17] MEDS: Piperacillin/Tazobactam 3.375 GM in 0.9 % Sodium Chloride Mini Bag 100 ML IVPB SCH ×2 (15:22→23:19)
[2021-02-17] MEDS: Melatonin 3 MG TABLET PO SCH (19:47)
[2021-02-17] MEDS: Ipratropium/Albuterol Neb 3 ML IH SCH ×2 (19:55→23:53)
[2021-02-18] MEDS ORDERED: Ipratropium/Albuterol Neb 3 ML IH PRN (00:21)
[2021-02-18] MEDS: *HR* OxyCODONE Immed Rel 15 MG TABLET PO PRN ×5 (03:24→23:52)
[2021-02-18] MEDS: 0.9 % Sodium Chloride 1,000 ML IVC SCH ×2 (04:25→23:47)
[2021-02-18] MEDS: Pregabalin 75 MG CAPSULE PO SCH ×2 (08:54→20:33)
[2021-02-18] MEDS: Apixaban 5 MG TABLET PO SCH ×2 (08:54→20:32)
[2021-02-18] MEDS: predniSONE 20 MG TABLET PO SCH (08:54)
[2021-02-18] MEDS: cilostazoL 100 MG TABLET PO SCH ×2 (08:54→23:52)
[2021-02-18] MEDS: Nicotine 21 MG PATCH.TD24 TD SCH (08:55)
[2021-02-18] MEDS: Piperacillin/Tazobactam 3.375 GM in 0.9 % Sodium Chloride Mini Bag 100 ML IVPB SCH (08:55)
[2021-02-18 10:58] LABS: Hematocrit 36.2 % (37.5-50.1); Mean Corpuscular HGB Conc 35.6 g/dL (31.6-35.5); Mean Platelet Volume 9.3 fL (9.4-12.4); Platelet Count 274 K/mcL (140-400); Red Blood Count 4.16 M/mcL (4.19-5.50); Red Cell Distribution Width 15.9 % (11.5-14.5); White Blood Count 16.9 K/mcL (4.3-11.1)
[2021-02-18 11:00] LABS: Hemoglobin 12.9 g/dL (12.9-16.9)
[2021-02-18 11:18] LABS: BUN/Creatinine Ratio 17 (6-26); Blood Urea Nitrogen 17 mg/dL (8-23); Calcium 7.6 mg/dL (8.6-10.3); Carbon Dioxide 26 mEq/L (23-29); Chloride 98 mEq/L (98-107); Glucose 109 mg/dL (70-105); Magnesium 1.2 mg/dL (1.6-2.6); Osmolality,Calculated 274 (280-300); Potassium 3.1 mEq/L (3.5-5.1); Sodium 131 mEq/L (136-145); eGFR For African Americans > 60 (> 60); eGFR For Non-African Americans > 60 (> 60)
[2021-02-18 11:26] LABS: Lymphocytes # 2.7 K/mcL (0.6-4.6); Monocytes # 2.7 K/mcL (0.0-1.3); Neutrophils # 11.5 K/mcL (1.6-8.9); Platelet Estimate Normal (Normal)
[2021-02-18] MEDS: Ertapenem 1,000 MG in 0.9 % Sodium Chloride Mini Bag 100 ML IVPB SCH (14:45)
[2021-02-18] MEDS: Famotidine 20 MG TABLET PO SCH (20:33)
[2021-02-18] MEDS: Melatonin 3 MG TABLET PO SCH (23:52)
[2021-02-19] MEDS: *HR* OxyCODONE Immed Rel 15 MG TABLET PO PRN ×5 (05:12→23:57)
[2021-02-19 05:51] LABS: Hematocrit 33.2 % (37.5-50.1); Mean Corpuscular HGB Conc 33.7 g/dL (31.6-35.5); Mean Corpuscular Hemoglobin 29.8 pg (28.0-33.3); Mean Corpuscular Volume 88.3 fL (83.0-100.0); Mean Platelet Volume 9.4 fL (9.4-12.4); Platelet Count 281 K/mcL (140-400); Red Blood Count 3.76 M/mcL (4.19-5.50); Red Cell Distribution Width 15.9 % (11.5-14.5); White Blood Count 15.3 K/mcL (4.3-11.1)
[2021-02-19 05:58] LABS: Hemoglobin 11.2 g/dL (12.9-16.9)
[2021-02-19 06:10] LABS: BUN/Creatinine Ratio 23 (6-26); Blood Urea Nitrogen 20 mg/dL (8-23); Calcium 7.6 mg/dL (8.6-10.3); Carbon Dioxide 27 mEq/L (23-29); Chloride 100 mEq/L (98-107); Glucose 137 mg/dL (70-105); Magnesium 1.2 mg/dL (1.6-2.6); Osmolality,Calculated 279 (280-300); Potassium 3.7 mEq/L (3.5-5.1); Sodium 132 mEq/L (136-145); eGFR For African Americans > 60 (> 60); eGFR For Non-African Americans > 60 (> 60)
[2021-02-19 06:40] LABS: Neutrophils # 9.5 K/mcL (1.6-8.9); Platelet Estimate Normal (Normal); Reactive Lymphocytes Present (Not Present)
[2021-02-19] MEDS ORDERED: Magnesium Oxide 400 MG TABLET PO SCH (09:00)
[2021-02-19] MEDS: Apixaban 5 MG TABLET PO SCH ×2 (09:13→19:59)
[2021-02-19] MEDS: cilostazoL 100 MG TABLET PO SCH ×2 (09:13→19:59)
[2021-02-19] MEDS: predniSONE 20 MG TABLET PO SCH (09:13)
[2021-02-19] MEDS: Pregabalin 75 MG CAPSULE PO SCH ×2 (09:15→19:59)
[2021-02-19] MEDS: Nicotine 21 MG PATCH.TD24 TD SCH (09:15)
[2021-02-19] MEDS: Ertapenem 1,000 MG in 0.9 % Sodium Chloride Mini Bag 100 ML IVPB SCH (09:15)
[2021-02-19] MEDS: *HR* LORazepam 1 MG TABLET PO PRN ×2 (10:37→19:23)
[2021-02-19] MEDS: Famotidine 20 MG TABLET PO SCH (19:58)
[2021-02-19] MEDS: Melatonin 3 MG TABLET PO SCH (22:03)
[2021-02-20] MEDS: *HR* LORazepam 1 MG TABLET PO PRN ×3 (04:02→20:32)
[2021-02-20] MEDS: *HR* OxyCODONE Immed Rel 15 MG TABLET PO PRN ×5 (04:02→20:32)
[2021-02-20 06:08] LABS: Hematocrit 33.9 % (37.5-50.1); Mean Corpuscular HGB Conc 32.4 g/dL (31.6-35.5); Mean Corpuscular Hemoglobin 29.4 pg (28.0-33.3); Mean Corpuscular Volume 90.6 fL (83.0-100.0); Mean Platelet Volume 9.3 fL (9.4-12.4); Platelet Count 310 K/mcL (140-400); Red Blood Count 3.74 M/mcL (4.19-5.50); White Blood Count 16.3 K/mcL (4.3-11.1)
[2021-02-20 06:14] LABS: BUN/Creatinine Ratio 25 (6-26); Blood Urea Nitrogen 23 mg/dL (8-23); Calcium 7.6 mg/dL (8.6-10.3); Carbon Dioxide 22 mEq/L (23-29); Chloride 103 mEq/L (98-107); Glucose 99 mg/dL (70-105); Magnesium 1.2 mg/dL (1.6-2.6); Osmolality,Calculated 276 (280-300); Sodium 131 mEq/L (136-145); eGFR For African Americans > 60 (> 60); eGFR For Non-African Americans > 60 (> 60)
[2021-02-20 06:34] LABS: Lymphocytes # 4.2 K/mcL (0.6-4.6); Monocytes # 0.7 K/mcL (0.0-1.3); Neutrophils # 11.4 K/mcL (1.6-8.9)
[2021-02-20 06:35] LABS: Platelet Estimate Normal (Normal); Reactive Lymphocytes Present (Not Present)
[2021-02-20] MEDS: predniSONE 20 MG TABLET PO SCH (08:30)
[2021-02-20] MEDS: cilostazoL 100 MG TABLET PO SCH ×2 (08:30→20:32)
[2021-02-20] MEDS: Pregabalin 75 MG CAPSULE PO SCH ×2 (08:30→20:31)
[2021-02-20] MEDS: Apixaban 5 MG TABLET PO SCH ×2 (08:31→20:31)
[2021-02-20] MEDS: Magnesium Oxide 400 MG TABLET PO SCH ×2 (08:31→20:31)
[2021-02-20] MEDS: Ertapenem 1,000 MG in 0.9 % Sodium Chloride Mini Bag 100 ML IVPB SCH (08:32)
[2021-02-20] MEDS: Nicotine 21 MG PATCH.TD24 TD SCH (08:32)
[2021-02-20] MEDS: Famotidine 20 MG TABLET PO SCH (20:31)
[2021-02-20] MEDS: Melatonin 3 MG TABLET PO SCH (21:58)
[2021-02-21] MEDS: *HR* OxyCODONE Immed Rel 15 MG TABLET PO PRN ×4 (00:31→16:13)
[2021-02-21] MEDS: *HR* LORazepam 1 MG TABLET PO PRN ×2 (04:37→16:13)
[2021-02-21 05:46] LABS: Hematocrit 31.6 % (37.5-50.1); Hemoglobin 10.7 g/dL (12.9-16.9); Mean Corpuscular HGB Conc 33.9 g/dL (31.6-35.5); Mean Corpuscular Hemoglobin 30.5 pg (28.0-33.3); Mean Platelet Volume 9.4 fL (9.4-12.4); Platelet Count 337 K/mcL (140-400); Red Blood Count 3.51 M/mcL (4.19-5.50); Red Cell Distribution Width 16.6 % (11.5-14.5)
[2021-02-21 06:07] LABS: BUN/Creatinine Ratio 28 (6-26); Blood Urea Nitrogen 26 mg/dL (8-23); Calcium 7.9 mg/dL (8.6-10.3); Carbon Dioxide 25 mEq/L (23-29); Chloride 103 mEq/L (98-107); Glucose 106 mg/dL (70-105); Magnesium 1.5 mg/dL (1.6-2.6); Osmolality,Calculated 283 (280-300); Potassium 4.1 mEq/L (3.5-5.1); Sodium 134 mEq/L (136-145); eGFR For African Americans > 60 (> 60); eGFR For Non-African Americans > 60 (> 60)
[2021-02-21 06:09] LABS: Lymphocytes # 1.1 K/mcL (0.6-4.6); Monocytes # 0.8 K/mcL (0.0-1.3); Neutrophils # 11.5 K/mcL (1.6-8.9)
[2021-02-21 06:10] LABS: Anisocytosis 1+ (Not Present); Platelet Estimate Normal (Normal)
[2021-02-21] MEDS: Ertapenem 1,000 MG in 0.9 % Sodium Chloride Mini Bag 100 ML IVPB SCH (10:11)
[2021-02-21] MEDS: Magnesium Oxide 400 MG TABLET PO SCH ×2 (10:12→19:31)
[2021-02-21] MEDS: Apixaban 5 MG TABLET PO SCH ×2 (10:12→19:33)
[2021-02-21] MEDS: Pregabalin 75 MG CAPSULE PO SCH ×2 (10:12→19:31)
[2021-02-21] MEDS: predniSONE 20 MG TABLET PO SCH (10:12)
[2021-02-21] MEDS: cilostazoL 100 MG TABLET PO SCH ×2 (10:12→19:31)
[2021-02-21] MEDS: Nicotine 21 MG PATCH.TD24 TD SCH (10:13)
[2021-02-21] MEDS: Melatonin 3 MG TABLET PO SCH (19:29)
[2021-02-21] MEDS: Famotidine 20 MG TABLET PO SCH (19:32)
[2021-02-22] MEDS: *HR* LORazepam 1 MG TABLET PO PRN ×2 (03:11→11:11)
[2021-02-22] MEDS: *HR* OxyCODONE Immed Rel 15 MG TABLET PO PRN ×2 (03:13→08:20)
[2021-02-22 07:18] VITALS: BP 132/89
[2021-02-22] MEDS: Magnesium Oxide 400 MG TABLET PO SCH (08:08)
[2021-02-22] MEDS: Pregabalin 75 MG CAPSULE PO SCH (08:08)
[2021-02-22] MEDS: cilostazoL 100 MG TABLET PO SCH (08:08)
[2021-02-22] MEDS: Apixaban 5 MG TABLET PO SCH (08:08)
[2021-02-22] MEDS: predniSONE 20 MG TABLET PO SCH (08:08)
[2021-02-22] MEDS: Ertapenem 1,000 MG in 0.9 % Sodium Chloride Mini Bag 100 ML IVPB SCH (08:09)
[2021-02-22] MEDS: Nicotine 21 MG PATCH.TD24 TD SCH (08:09)
== END 2021-02-22 11:24 | disposition home health service (06) | DRG 242 ==
LOC: 2ANU 06:23 → EMEROOARM 06:23 → SUATTDRO 11:50 → 2ANU 13:14
PROVIDERS: ADMIT Internal Medicine; ATTEND General Practice
PROC: ENDOEBX (2021-02-17 14:30)

== ENCOUNTER 2021-03-04 14:19 | Inpatient (IN) ==
[2021-03-04] MEDS ORDERED: Isovue-370 500 ML BOTTLE IVP ONE (15:03)
[2021-03-04] MEDS ORDERED: 0.9 % Sodium Chloride 1,000 ML IVC ONE (15:03)
[2021-03-04 15:21] LABS: Basophils # 0.1 K/mcL (0.0-0.2); Basophils % 0.9 %; Eosinophils # 0.3 K/mcL (0.0-0.6); Eosinophils % 2.8 %; Hematocrit 41.3 % (37.5-50.1); Immature Granulocytes % 0.4 % (0-4); Lymphocytes % 10.7 %; Mean Corpuscular HGB Conc 33.9 g/dL (31.6-35.5); Mean Corpuscular Hemoglobin 30.8 pg (28.0-33.3); Mean Corpuscular Volume 90.8 fL (83.0-100.0); Mean Platelet Volume 9.5 fL (9.4-12.4); Monocytes % 10.1 %; Neutrophils # 7.2 K/mcL (1.6-8.9); Platelet Count 332 K/mcL (140-400); Red Blood Count 4.55 M/mcL (4.19-5.50); Red Cell Distribution Width 18.4 % (11.5-14.5); Segmented Neutrophils % 75.1 %; White Blood Count 9.6 K/mcL (4.3-11.1)
[2021-03-04 15:53] LABS: BUN/Creatinine Ratio 19 (6-26); Blood Urea Nitrogen 15 mg/dL (8-23); Calcium 9.3 mg/dL (8.6-10.3); Carbon Dioxide 23 mEq/L (23-29); Chloride 98 mEq/L (98-107); Glucose 98 mg/dL (70-105); Magnesium 1.6 mg/dL (1.6-2.6); Osmolality,Calculated 281 (280-300); Potassium 3.2 mEq/L (3.5-5.1); Sodium 135 mEq/L (136-145); eGFR For African Americans > 60 (> 60); eGFR For Non-African Americans > 60 (> 60)
[2021-03-04 16:02] LABS: Bacteria,Urine Moderate per hpf (None-Few); Bilirubin,Urine Negative (Negative); Blood,Urine Small (Negative); Clarity,Urine Turbid (Clear); Color,Urine Yellow (Yellow); Glucose,Urine (UA) Normal (Normal); Ketones,Urine Negative (Negative); Leukocyte Esterase,Urine Large (Negative); Mucus,Urine Few per lpf (None-Few); Nitrite,Urine Negative (Negative); Protein,Urine 30 mg/dL (Neg-Trace); Specific Gravity,Urine 1.021 (1.010-1.025); Squamous Epithelial Cell,Urine Few per hpf (None-Few); WBC,Urine TNTC per hpf (0-3)
[2021-03-04] MEDS ORDERED: Nitrofurantoin (BID) 100 MG CAPSULE PO STA (16:07)
[2021-03-04] MEDS ORDERED: Ondansetron 4 MG/2 ML VIAL IVP STA (16:47)
[2021-03-04] MEDS ORDERED: Piperacillin/Tazobactam 3.375 GM in Water for inj. (sterile) 20 ML IVP ONE (16:47)
[2021-03-04] MEDS ORDERED: Ondansetron ODT 4 MG TAB.RAPDIS SL PRN (17:47)
[2021-03-04] MEDS ORDERED: Naloxone 0.4 MG/ML INJ IVP PRN (17:47)
[2021-03-04] MEDS ORDERED: Acetaminophen 325 MG TABLET PO PRN (17:47)
[2021-03-04] MEDS: Pregabalin 75 MG CAPSULE PO SCH (20:56)
[2021-03-04] MEDS: Ertapenem 1,000 MG in 0.9 % Sodium Chloride Mini Bag 100 ML IVPB SCH (20:56)
[2021-03-04] MEDS: Azithromycin 500 MG in 0.9 % Sodium Chloride 250 ML IVPB SCH (20:56)
[2021-03-04] MEDS: Melatonin 3 MG TABLET PO SCH (20:57)
[2021-03-04] MEDS: predniSONE 20 MG TABLET PO SCH (20:57)
[2021-03-04] MEDS: Apixaban 5 MG TABLET PO SCH (20:57)
[2021-03-04] MEDS: *HR* OxyCODONE Immed Rel 15 MG TABLET PO PRN (20:57)
[2021-03-04] MEDS ORDERED: Famotidine 20 MG TABLET PO SCH (21:00)
[2021-03-04] MEDS: Aspirin 81 MG TAB.CHEW PO SCH (21:00)
[2021-03-04] MEDS: Scopolamine Patch 1.5 MG PATCH.TD72 TD SCH (21:00)
[2021-03-04] MEDS: Nicotine 21 MG PATCH.TD24 TD SCH (21:01)
[2021-03-04] MEDS: cilostazoL 100 MG TABLET PO SCH (21:42)
[2021-03-04] MEDS: GuaiFENesin/Codeine Oral Soln 5 ML UDC PO PRN (21:42)
[2021-03-04] MEDS: Ipratropium/Albuterol Neb 3 ML IH SCH ×2 (22:27→23:54)
[2021-03-05 00:26] LABS: Campylobacter by PCR Not detected (Not detect)
[2021-03-05 00:27] LABS: Adenovirus F 40/41 PCR Not detected (Not detect); Astrovirus PCR Not detected (Not detect); Cryptosporidium by PCR Not detected (Not detect); Cyclospora cayetanensis PCR Not detected (Not detect); E. coli O157 by PCR Not detected (Not detect); Entamoeba histolytica PCR Not detected (Not detect); Enteroaggregative E.coli(EAEC) Not detected (Not detect); Enteropathogenic E.coli(EPEC) Not detected (Not detect); Enterotoxigenic E.coli (ETEC) Not detected (Not detect); Giardia lamblia PCR Not detected (Not detect); Norovirus GI/GII PCR Not detected (Not detect); Plesiomonas shigelloides PCR Not detected (Not detect); Rotavirus A PCR Not detected (Not detect); Salmonella PCR Not detected (Not detect); Sapovirus PCR Not detected (Not detect); Shig/EnteroinvasiveE coli EIEC Not detected (Not detect); Shigalike tox-prod E coli STEC Not detected (Not detect); Vibrio PCR Not detected (Not detect); Vibrio cholerae PCR Not detected (Not detect); Yersinia enterocolitica PCR Not detected (Not detect)
[2021-03-05 00:29] LABS: C.difficile Toxin A/B Gene PCR DETECTED (Not detect)
[2021-03-05] MEDS: Vancomycin Oral Soln 125 MG/2.5 ML UDC PO SCH ×5 (01:23→21:32)
[2021-03-05] MEDS: Ipratropium/Albuterol Neb 3 ML IH SCH ×6 (04:32→23:19)
[2021-03-05] MEDS: *HR* OxyCODONE Immed Rel 15 MG TABLET PO PRN ×4 (05:12→22:12)
[2021-03-05] MEDS: GuaiFENesin/Codeine Oral Soln 5 ML UDC PO PRN ×3 (05:48→22:12)
[2021-03-05 07:16] LABS: Hematocrit 33.7 % (37.5-50.1); Hemoglobin 11.6 g/dL (12.9-16.9); Mean Corpuscular HGB Conc 34.4 g/dL (31.6-35.5); Mean Corpuscular Hemoglobin 31.4 pg (28.0-33.3); Mean Corpuscular Volume 91.1 fL (83.0-100.0); Mean Platelet Volume 10.2 fL (9.4-12.4); Platelet Count 271 K/mcL (140-400); Red Cell Distribution Width 18.3 % (11.5-14.5); White Blood Count 5.9 K/mcL (4.3-11.1)
[2021-03-05 07:31] LABS: BUN/Creatinine Ratio 16 (6-26); Blood Urea Nitrogen 14 mg/dL (8-23); Calcium 8.8 mg/dL (8.6-10.3); Carbon Dioxide 21 mEq/L (23-29); Chloride 101 mEq/L (98-107); Glucose 166 mg/dL (70-105); Osmolality,Calculated 276 (280-300); Potassium 3.7 mEq/L (3.5-5.1); Sodium 131 mEq/L (136-145); eGFR For African Americans > 60 (> 60); eGFR For Non-African Americans > 60 (> 60)
[2021-03-05] MEDS: Aspirin 81 MG TAB.CHEW PO SCH (08:31)
[2021-03-05] MEDS: Pregabalin 75 MG CAPSULE PO SCH ×2 (08:32→21:32)
[2021-03-05] MEDS: predniSONE 20 MG TABLET PO SCH (08:32)
[2021-03-05] MEDS: Nicotine 21 MG PATCH.TD24 TD SCH (08:32)
[2021-03-05] MEDS: Apixaban 5 MG TABLET PO SCH ×2 (08:32→21:32)
[2021-03-05] MEDS: cilostazoL 100 MG TABLET PO SCH ×2 (08:33→21:32)
[2021-03-05] MEDS: Ertapenem 1,000 MG in 0.9 % Sodium Chloride Mini Bag 100 ML IVPB SCH (08:33)
[2021-03-05] MEDS: Famotidine 20 MG TABLET PO SCH (16:42)
[2021-03-05] MEDS: Azithromycin 500 MG in 0.9 % Sodium Chloride 250 ML IVPB SCH (17:52)
[2021-03-05] MEDS: Melatonin 3 MG TABLET PO SCH (21:32)
[2021-03-06] MEDS: Ipratropium/Albuterol Neb 3 ML IH SCH ×6 (03:54→23:00)
[2021-03-06] MEDS: Ertapenem 1,000 MG in 0.9 % Sodium Chloride Mini Bag 100 ML IVPB SCH (09:22)
[2021-03-06] MEDS: Apixaban 5 MG TABLET PO SCH ×2 (09:22→21:36)
[2021-03-06] MEDS: Famotidine 20 MG TABLET PO SCH ×2 (09:22→16:24)
[2021-03-06] MEDS: *HR* LORazepam 1 MG TABLET PO PRN ×2 (09:22→16:33)
[2021-03-06] MEDS: Pregabalin 75 MG CAPSULE PO SCH ×2 (09:22→21:37)
[2021-03-06] MEDS: Vancomycin Oral Soln 125 MG/2.5 ML UDC PO SCH ×4 (09:22→21:36)
[2021-03-06] MEDS: predniSONE 20 MG TABLET PO SCH (09:22)
[2021-03-06] MEDS: GuaiFENesin/Codeine Oral Soln 5 ML UDC PO PRN ×3 (09:22→22:29)
[2021-03-06] MEDS: Aspirin 81 MG TAB.CHEW PO SCH (09:22)
[2021-03-06] MEDS: cilostazoL 100 MG TABLET PO SCH ×2 (09:23→21:37)
[2021-03-06] MEDS: Nicotine 21 MG PATCH.TD24 TD SCH (09:32)
[2021-03-06] MEDS: *HR* OxyCODONE Immed Rel 15 MG TABLET PO PRN ×3 (09:32→21:37)
[2021-03-06] MEDS: Scopolamine Patch 1.5 MG PATCH.TD72 TD SCH (16:24)
[2021-03-06] MEDS: Azithromycin 500 MG in 0.9 % Sodium Chloride 250 ML IVPB SCH (16:25)
[2021-03-06] MEDS: Melatonin 3 MG TABLET PO SCH (21:36)
[2021-03-07] MEDS: Ipratropium/Albuterol Neb 3 ML IH SCH ×6 (03:48→22:44)
[2021-03-07] MEDS: *HR* OxyCODONE Immed Rel 15 MG TABLET PO PRN ×5 (05:23→23:52)
[2021-03-07] MEDS: GuaiFENesin/Codeine Oral Soln 5 ML UDC PO PRN ×3 (05:24→19:06)
[2021-03-07] MEDS: *HR* LORazepam 1 MG TABLET PO PRN ×3 (05:25→23:52)
[2021-03-07 08:53] LABS: Hematocrit 28.3 % (37.5-50.1); Mean Corpuscular HGB Conc 33.6 g/dL (31.6-35.5); Mean Corpuscular Hemoglobin 31.1 pg (28.0-33.3); Mean Corpuscular Volume 92.8 fL (83.0-100.0); Mean Platelet Volume 9.6 fL (9.4-12.4); Platelet Count 237 K/mcL (140-400); Red Blood Count 3.05 M/mcL (4.19-5.50); Red Cell Distribution Width 18.6 % (11.5-14.5); White Blood Count 6.9 K/mcL (4.3-11.1)
[2021-03-07 08:56] LABS: Hemoglobin 9.5 g/dL (12.9-16.9)
[2021-03-07 09:12] LABS: BUN/Creatinine Ratio 23 (6-26); Blood Urea Nitrogen 18 mg/dL (8-23); Calcium 8.1 mg/dL (8.6-10.3); Carbon Dioxide 26 mEq/L (23-29); Chloride 103 mEq/L (98-107); Glucose 100 mg/dL (70-105); Osmolality,Calculated 278 (280-300); Potassium 3.9 mEq/L (3.5-5.1); Sodium 133 mEq/L (136-145); eGFR For African Americans > 60 (> 60); eGFR For Non-African Americans > 60 (> 60)
[2021-03-07] MEDS: predniSONE 20 MG TABLET PO SCH (10:00)
[2021-03-07] MEDS: Nicotine 21 MG PATCH.TD24 TD SCH (10:03)
[2021-03-07] MEDS: Apixaban 5 MG TABLET PO SCH ×2 (10:04→20:38)
[2021-03-07] MEDS: Pregabalin 75 MG CAPSULE PO SCH ×2 (10:04→20:38)
[2021-03-07] MEDS: Aspirin 81 MG TAB.CHEW PO SCH (10:04)
[2021-03-07] MEDS: Ertapenem 1,000 MG in 0.9 % Sodium Chloride Mini Bag 100 ML IVPB SCH (10:05)
[2021-03-07] MEDS: cilostazoL 100 MG TABLET PO SCH ×2 (10:05→20:37)
[2021-03-07] MEDS: Famotidine 20 MG TABLET PO SCH ×2 (10:11→15:03)
[2021-03-07] MEDS: Vancomycin Oral Soln 125 MG/2.5 ML UDC PO SCH ×4 (12:34→20:37)
[2021-03-07] MEDS: Azithromycin 500 MG in 0.9 % Sodium Chloride 250 ML IVPB SCH (19:10)
[2021-03-07] MEDS: Melatonin 3 MG TABLET PO SCH (20:37)
[2021-03-08] MEDS: GuaiFENesin/Codeine Oral Soln 5 ML UDC PO PRN ×4 (01:08→18:10)
[2021-03-08] MEDS: Ipratropium/Albuterol Neb 3 ML IH SCH ×6 (04:09→23:45)
[2021-03-08] MEDS: predniSONE 20 MG TABLET PO SCH (09:56)
[2021-03-08] MEDS: *HR* LORazepam 1 MG TABLET PO PRN ×2 (09:56→18:12)
[2021-03-08] MEDS: *HR* OxyCODONE Immed Rel 15 MG TABLET PO PRN ×4 (09:56→23:10)
[2021-03-08] MEDS: Pregabalin 75 MG CAPSULE PO SCH ×2 (09:56→20:43)
[2021-03-08] MEDS: Famotidine 20 MG TABLET PO SCH ×2 (09:57→18:10)
[2021-03-08] MEDS: Nicotine 21 MG PATCH.TD24 TD SCH (09:57)
[2021-03-08] MEDS: Apixaban 5 MG TABLET PO SCH ×2 (09:57→20:45)
[2021-03-08] MEDS: cilostazoL 100 MG TABLET PO SCH ×2 (09:57→20:43)
[2021-03-08] MEDS: Ertapenem 1,000 MG in 0.9 % Sodium Chloride Mini Bag 100 ML IVPB SCH (09:58)
[2021-03-08] MEDS: Vancomycin Oral Soln 125 MG/2.5 ML UDC PO SCH ×4 (09:58→20:43)
[2021-03-08] MEDS: Aspirin 81 MG TAB.CHEW PO SCH (10:24)
[2021-03-08] MEDS: Scopolamine Patch 1.5 MG PATCH.TD72 TD SCH (18:10)
[2021-03-08] MEDS: Melatonin 3 MG TABLET PO SCH (20:44)
[2021-03-09] MEDS: GuaiFENesin/Codeine Oral Soln 5 ML UDC PO PRN ×3 (02:27→20:40)
[2021-03-09] MEDS: *HR* LORazepam 1 MG TABLET PO PRN ×3 (02:27→20:40)
[2021-03-09] MEDS: Ipratropium/Albuterol Neb 3 ML IH SCH ×6 (04:30→23:49)
[2021-03-09] MEDS: *HR* OxyCODONE Immed Rel 15 MG TABLET PO PRN ×4 (06:16→20:40)
[2021-03-09 07:03] LABS: Basophils # 0.1 K/mcL (0.0-0.2); Basophils % 0.5 %; Eosinophils # 0.1 K/mcL (0.0-0.6); Eosinophils % 1.1 %; Hematocrit 29.9 % (37.5-50.1); Immature Granulocytes % 1.3 % (0-4); Lymphocytes # 2.3 K/mcL (0.6-4.6); Lymphocytes % 23.6 %; Mean Corpuscular HGB Conc 33.4 g/dL (31.6-35.5); Mean Corpuscular Hemoglobin 31.2 pg (28.0-33.3); Mean Corpuscular Volume 93.1 fL (83.0-100.0); Mean Platelet Volume 9.8 fL (9.4-12.4); Monocytes # 1.3 K/mcL (0.0-1.3); Monocytes % 13.2 %; Neutrophils # 5.7 K/mcL (1.6-8.9); Platelet Count 260 K/mcL (140-400); Red Blood Count 3.21 M/mcL (4.19-5.50); Red Cell Distribution Width 19.1 % (11.5-14.5); Segmented Neutrophils % 60.3 %; White Blood Count 9.5 K/mcL (4.3-11.1)
[2021-03-09] MEDS: cilostazoL 100 MG TABLET PO SCH ×2 (08:30→20:40)
[2021-03-09] MEDS: Pregabalin 75 MG CAPSULE PO SCH ×2 (08:30→20:40)
[2021-03-09] MEDS: Apixaban 5 MG TABLET PO SCH ×2 (08:30→20:40)
[2021-03-09] MEDS: Vancomycin Oral Soln 125 MG/2.5 ML UDC PO SCH ×4 (08:30→20:40)
[2021-03-09] MEDS: Ertapenem 1,000 MG in 0.9 % Sodium Chloride Mini Bag 100 ML IVPB SCH (08:30)
[2021-03-09] MEDS: Aspirin 81 MG TAB.CHEW PO SCH (08:30)
[2021-03-09] MEDS: Nicotine 21 MG PATCH.TD24 TD SCH (08:30)
[2021-03-09] MEDS: Famotidine 20 MG TABLET PO SCH ×2 (08:30→17:12)
[2021-03-09] MEDS: Melatonin 3 MG TABLET PO SCH (20:42)
[2021-03-10] MEDS: *HR* OxyCODONE Immed Rel 15 MG TABLET PO PRN ×2 (04:01→08:38)
[2021-03-10] MEDS: GuaiFENesin/Codeine Oral Soln 5 ML UDC PO PRN (04:01)
[2021-03-10] MEDS: Ipratropium/Albuterol Neb 3 ML IH SCH ×4 (04:16→16:04)
[2021-03-10 04:25] VITALS: BP 129/82
[2021-03-10] MEDS: Nicotine 21 MG PATCH.TD24 TD SCH (08:32)
[2021-03-10] MEDS: cilostazoL 100 MG TABLET PO SCH (08:32)
[2021-03-10] MEDS: Aspirin 81 MG TAB.CHEW PO SCH (08:32)
[2021-03-10] MEDS: Vancomycin Oral Soln 125 MG/2.5 ML UDC PO SCH ×2 (08:32→12:35)
[2021-03-10] MEDS: Famotidine 20 MG TABLET PO SCH (08:32)
[2021-03-10] MEDS: Pregabalin 75 MG CAPSULE PO SCH (08:32)
[2021-03-10] MEDS: Apixaban 5 MG TABLET PO SCH (08:32)
[2021-03-10] MEDS: *HR* LORazepam 1 MG TABLET PO PRN (08:38)
[2021-03-10] MEDS: Ertapenem 1,000 MG in 0.9 % Sodium Chloride Mini Bag 100 ML IVPB SCH (08:43)
== END 2021-03-10 17:01 | disposition home health service (06) | DRG 720 ==
LOC: 3NENU 14:19 → EMEROOARM 14:19 → SUATTDRO 17:29 → 3NENU 18:06 → SUATTDRO 03-05 18:41
PROVIDERS: ADMIT Internal Medicine; ATTEND Internal Medicine